=== PATIENT | female | born 1935 | race Caucasian/White ===

== ENCOUNTER → 2017-05-15 13:39 | Outpatient (CLI) | payer MEDICARE, OTHER, SELFPAY ==
[2017-05-15 15:26] LABS: Protein, Urine (Random) < 6.0 mg/dL (<11.9); Protein:Creat Ratio 146 mg/g CRE (0-200)
[2017-05-15 15:28] LABS: Anion Gap 7 (5-15); BUN 15 mg/dL (7-18); BUN/Creat Ratio 13.3 RATIO (10-20); Calcium,Total 9.3 mg/dL (8.5-10.1); Chloride 102 mmol/L (98-107); Creatinine, Serum 1.13 mg/dL (0.55-1.02); EST Glomerular Filtration Rate 49 mL/min (>60); Est Glom Filt Rate - Afr Amer 60 mL/min (>60); Glucose 85 mg/dL (74-106); Potassium 3.9 mmol/L (3.5-5.1); Sodium Level 139 mmol/L (136-145)
[2017-05-16 10:39] LABS: PTHIN 148.8 pg/mL (18.4-80.1)
== END ==
PROVIDERS: Family Provider Internal Medicine; PCP Internal Medicine; Visit Provider Internal Medicine Nephrology
DX: N18.3 Chronic kidney disease, stage 3 (moderate) (principal)
CPT/HCPCS: 36415; 80048; 82570; 83970; 84156

== ENCOUNTER → 2018-03-28 10:21 | Outpatient (CLI) | payer MEDICARE, OTHER, SELFPAY ==
[2018-03-28 11:25] LABS: Absolute Lymphocyte Count 1.38 X10^3/ul (0.83-4.51); Absolute Neutrophil Count 4.6 X10^3/uL (2.0-7.7); Basophil# 0.03 X10^3/uL; Basophil% 0.4 % (0-1); Eosinophil# 0.13 X10^3/uL; Eosinophils% 1.9 % (0-5); Hematocrit 36.8 % (37-47); Lymphocyte # 1.38 X10^3/ul (4.0); Lymphocyte % 20.1 % (19-41); Mean Corp Hgb Conc 32.6 g/gl (32-36); Mean Corpuscular Hgb 31.9 pg (27.0-32.0); Mean Corpuscular Volume 97.9 fL (81-99); Mean Platelet Vol. 9.9 fl (6.2-12.0); Monocyte% 10.2 % (0-10); Neutrophil # 4.57 X10^3/uL (2.7-7.7); Neutrophil % 66.8 % (47-70); POSITIVE COUNT NO; POSITIVE DIFFERENTIAL NO; POSITIVE MORPHOLOGY NO; Platelet Count 211 K/mm3 (150-450); RBC Distribution Width CV 15.9 % (11.6-14.6); RBC Distribution Width SD 54.5 fl (35.1-43.9); Red Blood Count 3.76 M/mm3 (4.2-5.4); White Blood Count 6.9 K/mm3 (4.4-11.0)
[2018-03-28 11:39] LABS: Microalbumin,Random Urine 13.4 mg/L (NO RANGE EST.); Microalbumin:Creatinine Ratio 53.2 mg/g CRE (<30 mg/g CRE)
[2018-03-28 11:42] LABS: Albumin, Serum 3.3 g/dL (3.2-5.0); BUN 18 mg/dL (7-18); BUN/Creat Ratio 14.3 RATIO (10-20); Calcium,Total 9.2 mg/dL (8.5-10.1); Chloride 101 mmol/L (98-107); Creatinine, Serum 1.26 mg/dL (0.55-1.02); EST Glomerular Filtration Rate 43 mL/min (>60); Est Glom Filt Rate - Afr Amer 52 mL/min (>60); Glucose 105 mg/dL (74-106); Phosphorus 3.1 mg/dL (2.5-4.9); Potassium 3.9 mmol/L (3.5-5.1); Sodium Level 137 mmol/L (136-145)
[2018-03-28 11:51] LABS: Vitamin D,25 Hydroxy 36.1 ng/mL (29.95-100.01)
[2018-03-28 12:22] LABS: PTHIN 67.3 pg/mL (18.4-80.1)
== END ==
PROVIDERS: Family Provider Internal Medicine; PCP Internal Medicine; Referring Provider Internal Medicine Nephrology; Visit Provider Internal Medicine Nephrology
DX: N18.3 Chronic kidney disease, stage 3 (moderate) (principal); D63.1 Anemia in chronic kidney disease; N25.81 Secondary hyperparathyroidism of renal origin; R80.9 Proteinuria, unspecified
CPT/HCPCS: 36415; 80069; 82043; 82306; 82570; 83970; 85025

== ENCOUNTER → 2019-08-24 11:03 | Outpatient (CLI) | payer MEDICARE, OTHER, SELFPAY ==
[2019-08-24 11:34] LABS: Hematocrit 34.9 % (37-47); Mean Corp Hgb Conc 31.5 g/dL (32-36); Mean Corpuscular Hgb 31.2 pg (27.0-32.0); Mean Corpuscular Volume 98.9 fL (81-99); Mean Platelet Vol. 10.3 fl (6.2-12.0); Platelet Count 217 K/mm3 (150-450); RBC Distribution Width CV 17.2 % (11.6-14.6); RBC Distribution Width SD 61.7 fl (35.1-43.9); Red Blood Count 3.53 M/mm3 (4.2-5.4); White Blood Count 8.7 K/mm3 (4.4-11.0)
[2019-08-24 12:02] LABS: Albumin, Serum 3.4 g/dL (3.2-5.0); BUN 41 mg/dL (7-18); BUN/Creat Ratio 21.6 RATIO (10-20); Calcium,Total 10.7 mg/dL (8.5-10.1); Chloride 105 mmol/L (98-107); EST Glomerular Filtration Rate 27 mL/min (>60); Est Glom Filt Rate - Afr Amer 33 mL/min (>60); Glucose 133 mg/dL (74-106); Phosphorus 2.7 mg/dL (2.5-4.9); Potassium 4.4 mmol/L (3.5-5.1); Sodium Level 141 mmol/L (136-145)
[2019-08-24 12:04] LABS: Vitamin D,25 Hydroxy 44.6 ng/mL
[2019-08-24 12:52] LABS: PTHIN 56.4 pg/mL (18.4-80.1)
[2019-08-24 13:02] LABS: Protein, Urine (Random) < 6.0 mg/dL (<11.9); Protein:Creat Ratio 94 mg/g CRE (0-200)
== END ==
PROVIDERS: PCP Internal Medicine; Visit Provider Internal Medicine Nephrology
DX: N18.3 Chronic kidney disease, stage 3 (moderate) (principal); D63.1 Anemia in chronic kidney disease
CPT/HCPCS: 36415; 80069; 82306; 82570; 83970; 84156; 85027

== ENCOUNTER 2019-10-13 14:47 | Inpatient (IN) | payer MEDICARE, OTHER, SELFPAY ==
[2019-10-13] VITALS (10 sets, daily range): BP systolic 89–126; BP diastolic 30–53; PULSE 53–68; RESP 12–18; TEMP 36.5–36.7; O2SAT 95–99; BMI 36.3; BMI 34.6
--- NOTE | 2019-10-13 15:38 | CT_ITS ---
STUDY: CT BRAIN WITHOUT CONTRAST REASON FOR EXAM: Female, 84 years old. Confusion. RADIATION DOSAGE (If Supplied By Facility): CTDIvol = ( 44.99 ) mGy, DLP = ( 796.11 ) mGycm TECHNIQUE: Transaxial CT imaging of the brain was performed without administration of intravenous contrast material. Individualized dose optimization techniques were used for this CT. COMPARISON: MRI dated 04/14/2015 FINDINGS: There is no acute bleed or infarct. There are stable chronic ischemic and atrophic changes. The ventricles are normal in configuration. There is no hydrocephalus. The visualized paranasal sinuses are clear. The mastoid air cells are well aerated. There is no skull fracture. CT/Brain/Head without Contrast IMPRESSION: Stable chronic ischemic and atrophic changes. No acute intracranial abnormality. Electronically Signed: Yannick Payne, at 16:40 EDT Tel , Service support ,
--- NOTE | 2019-10-13 15:39 | EKG12_ITS ---
Test Reason : FATIGUE Blood Pressure : / mmHG Vent. Rate : 054 BPM Atrial Rate : 054 BPM P-R Int : 222 ms QRS Dur : 088 ms QT Int : 454 ms P-R-T Axes : 041 -05 051 degrees QTc Int : 430 ms Sinus bradycardia with 1st degree A-V block Low voltage QRS Borderline ECG Confirmed by MIKE SPARROW ([id number]), desk editor ANNABEL ADEN ([id number]) on 10/18/2019 11:57:41 AM Referred By: Confirmed By:MIKE SPARROW
--- NOTE | 2019-10-13 15:55 | ED.VIS.GEN ---
History of Present Illness Chief Complaint: Fatigue Informant: Patient, Family Onset: Days - 4 to 5 days per daughter. Context: - - Known Timing: - - Possibly cutaneous and waxes and wanes Quality: Confusion, visual hallucination, no appetite, weight loss Location: Residence Current Severity: Mild Maximum Severity: Moderate Worsened by: Uncertain Relieved by: Nothing Associated Symptoms: Please read HPI and review of systems Narrative: Patient is a 4-year-old woman who lives alone. She has not been her normal self for 4 to 5 days. Is been significantly different than normal according to daughter. Daughter states she has trouble finding words and her speech has been slurred. This may have started several days ago. Patient is forgetful. Patient is not oriented. Patient had a urine analysis performed on Friday which was unremarkable and culture is negative. Test was performed at the [facility]. Patient denies headache. She denies double vision, change in vision or blurred vision. She denies neck pain. She denies shortness of breath at rest. She is not able to walk across the room without having significant shortness of breath. This is new. She denies orthopnea PND. She denies nausea or vomiting. She states she had diarrhea. The incident the patient referenced occurred a while ago according the daughter. She states she had decreased urine output. She has no urinary symptoms. She does have history of heart murmur and 70% stenosis of 1 of her carotid arteries. She is on no anticoagulant. There is no history of fall. Prior similar symptoms: No Recent Illness/Hospitalization: No - Past Medical History (1) History of hypertension Status: Acute (2) History of cardiac murmur Status: Acute (3) History of carotid stenosis Status: Acute Past Medical History - Allergies and Home Meds Allergies/Adverse Reactions: Allergies GREG Inhibitors Adverse Reaction (Verified 10/13/19 14:51) Unknown carvedilol [From Coreg] Adverse Reaction (Verified 10/13/19 14:51) Unknown nifedipine [From Procardia] Adverse Reaction (Verified 10/13/19 14:51) Unknown simvastatin [From Zocor] Adverse Reaction (Verified 10/13/19 14:51) Unknown spironolactone Adverse Reaction (Verified 10/13/19 14:51) Unknown Primary Care Physician: Davey Duarte MD [Primary Care Provider] - Prior records reviewed: Yes Surgical History: noncontributory Lives: Alone Smoking Status: Never smoker Alcohol: None Drugs: None Review of Systems General: Reports: Malaise, Weight loss. Denies: Chills, Fever, Subjective, Sweats Eyes: Denies: Visual changes - bilaterally, Blurred Vision - bilaterally, Diplopia ENT: Reports: - - No change in taste or smell. Denies: Bilateral ear pain, Rhinorrhea, Sore throat Cardiovascular: Denies: Chest pain, Palpitations Respiratory: Reports: Dyspnea on exertion. Denies: Dyspnea, Cough, Sputum, Orthopnea, Paroxysmal nocturnal dyspnea Gastrointestinal: Denies: Abdominal pain, Nausea, Vomiting, Diarrhea Genitourinary: Denies: Dysuria, Hematuria, Frequency Musculoskeletal: Reports: Swelling. Denies: Myalgias, Arthralgias, Neck pain, Back pain, Extremity Pain Skin: Denies: Rash, Wounds Neurological: Reports: Weakness, Parasthesia - Patient has history of neuropathy.. Denies: Headache, Numbness Psych: Denies: Depression Hematologic: Denies: Easy bruising, Easy bleeding Allergy: Denies: Uticaria Physical Exam Vital Signs/Narrative: Vital Signs Temp Pulse Resp BP Pulse Ox 10/13/19 15:22 55 L 12 116/52 L 99 10/13/19 14:49 97.7 F L 58 L 18 89/30 L 97 Inital Vital Signs reviewed: Yes General: Well nourished, Well developed, Obese, No Acute Distress Head: Normocephalic, Atraumatic Eyes: Perrl, EOMI. Negative for: Pale conjunctiva, Scleral icterus ENT: Moist mucous membranes, No rhinorrhea, TM's clear Neck: Supple, Nontender, No lymphadenopathy, No JVD Cardiovascular: Regular rate, Regular rhythm, Normal S1, Normal S2, Murmur - There is a grade 2/6 systolic murmur heard throughout the precordium with radiation into the right anterior neck. Respiratory: No distress, CTA bilaterally, Chest nontender Abdomen: Soft, Nontender, Nondistended, Normal bowel sounds Back: Nontender, Normal Inspection Extremities: Nontender, No edema Skin: Normal color, No rash Neurological: Alert, Cranial nerves II-XII grossly intact, Normal Strength, Normal Sensation, Normal DTR. Negative for: Oriented x3 Psychological: Depressed Diagnostic/Tx/Re-eval Impressions Brain CT 10/13/19 15:38 IMPRESSION: Stable chronic ischemic and atrophic changes. No acute intracranial abnormality. Electronically Signed: Yannick Payne, at 16:40 EDT Tel , Service support , Chest X-Ray 10/13/19 16:24 IMPRESSION: No acute thoracic pathology. Electronically Signed: Yannick Payne, at 16:45 EDT Tel , Service support , 10/13/19 15:38 Brain/Head without Contrast [CT] Stat 10/13/19 16:24 Chest PA and Lateral [RAD] Stat Laboratory Results 10/13/19 10/13/19 16:00 16:00 WBC 6.6 RBC 3.60 L Hgb 11.3 L Hct 34.6 L MCV 96.1 MCH 31.4 MCHC 32.7 RDW Std Deviation 57.1 H RDW Coeff of Yolanda 16.4 H Plt Count 223 MPV 10.9 Immature Gran % (Auto) 0.200 Neut % (Auto) 56.6 Lymph % (Auto) 26.9 Bent % (Auto) 12.0 H Eos % (Auto) 3.5 Baso % (Auto) 0.8 Absolute Neuts (auto) 3.7 Absolute Lymphs (auto) 1.77 Nucleated RBC % 0 Sodium 137 Potassium 6.0 H* Chloride 107 Carbon Dioxide 24.0 Anion Gap 6 BUN 82 H Creatinine 5.75 H Estim Creat Clear Calc 6.13 Est GFR (MDRD) Af Amer 9 L Est GFR (MDRD) Non-Af 8 L BUN/Creatinine Ratio 14.3 Glucose 113 H Calcium 9.3 Total Bilirubin 1.00 AST 7 L ALT 15 Alkaline Phosphatase 75 Total Protein 6.1 L Albumin 3.4 Globulin 2.7 Albumin/Globulin Ratio 1.3 Creatinine on August 23 was 1.9. Creatinine today is 5.75. Potassium is elevated at 6.0. Lab commented there is no hemolysis. Her EKG reveals no changes concerning for hyperkalemia. Therefore will not treat with calcium chloride, insulin D50 or albuterol. Sees a fluid bolus of 1 L and 150 an hour after the bolus. - EKG Initial EKG Interpretation: Sinus Bradycardia - 88 ms. QT duration 454 ms with a QTC of 430 ms. [place] is normal. There is decreased voltage.Sinus bradycardia with a first-degree AV block. OR interval is 222 ms. - Medical Decision Making Altered mental status in an elderly woman. This may represent depression with pseudodementia, dementia, urinary tract infection has been ruled out since she had a recent UA and culture that were negative, metabolic cause. CT of the head was obtained as well as appropriate blood work. ED Disposition - Plan for ED Patient: Disposition: [facility] Diagnosis: Acute on chronic renal failure, Hyperkalemia, History of hypertension Referrals: Davey Duarte MD [Primary Care Provider] -
[2019-10-13 16:14] LABS: Absolute Lymphocyte Count 1.77 X10^3/uL (0.83-4.51); Absolute Neutrophil Count 3.7 X10^3/uL (2.0-7.7); Basophil# 0.05 X10^3/uL; Basophil% 0.8 % (0-1); Eosinophil# 0.23 X10^3/uL; Eosinophils% 3.5 % (0-5); Hematocrit 34.6 % (37-47); Hemoglobin 11.3 g/dL (12.0-15.0); Lymphocyte # 1.77 X10^3/ul (4.0); Lymphocyte % 26.9 % (19-41); Mean Corp Hgb Conc 32.7 g/dL (32-36); Mean Corpuscular Hgb 31.4 pg (27.0-32.0); Mean Corpuscular Volume 96.1 fL (81-99); Mean Platelet Vol. 10.9 fl (6.2-12.0); Monocyte# 0.79 X10^3/uL; NRBC Flagged by Analyzer 0 % (0-5); Neutrophil # 3.72 X10^3/uL (2.7-7.7); Neutrophil % 56.6 % (47-70); Platelet Count 223 K/mm3 (150-450); RBC Distribution Width CV 16.4 % (11.6-14.6); RBC Distribution Width SD 57.1 fl (35.1-43.9); White Blood Count 6.6 K/mm3 (4.4-11.0)
--- NOTE | 2019-10-13 16:24 | RAD_ITS ---
STUDY: X-RAY CHEST REASON FOR EXAM: Female, 84 years old. Dyspnea TECHNIQUE: Frontal and lateral views of the chest COMPARISON: None. FINDINGS: The lungs are clear. There are no pleural effusions. There is no pneumothorax. The heart is normal in size. The visualized osseous structures are within normal limits. RAD/Chest PA and Lateral IMPRESSION: No acute thoracic pathology. Electronically Signed: Yannick Payne, at 16:45 EDT Tel , Service support ,
[2019-10-13 17:11] LABS: ALB/GLOB Ratio 1.3 RATIO (0.9-2.4); AST(SGOT) 7 U/L (15-37); Alanine Aminotransfer ALT/SGPT 15 U/L (13-56); Albumin, Serum 3.4 g/dL (3.2-5.0); Alkaline Phosphatase 75 U/L (45-117); Anion Gap 6 (5-15); BUN 82 mg/dL (7-18); BUN/Creat Ratio 14.3 RATIO (10-20); Calcium,Total 9.3 mg/dL (8.5-10.1); Chloride 107 mmol/L (98-107); Creatinine, Serum 5.75 mg/dL (0.55-1.02); EST Glomerular Filtration Rate 8 mL/min (>60); Est Glom Filt Rate - Afr Amer 9 mL/min (>60); Estimated Creatinine Clearance 6.13 ml/min; Globulin 2.7 g/dL (2.2-4.2); Glucose 113 mg/dL (74-106); Protein, Total 6.1 g/dL (6.4-8.2); Sodium Level 137 mmol/L (136-145)
[2019-10-13] MEDS: 0.9% Normal Saline 1,000 ML 1000 ML IV (17:52)
--- NOTE | 2019-10-13 17:56 | HP.PCM_ITS ---
<Katie Rogers - Last Filed: 10/13/19 18:42> Problem List (1) History of hypertension Status: Chronic (2) History of cardiac murmur Status: Chronic (3) History of carotid stenosis Status: Chronic (4) Acute on chronic renal failure Status: Acute (5) Hyperkalemia Status: Acute History of Present Illness Date of Admission: 10/13/19 Chief Complaint: Weakness. The patient is a 84 year old F who presents emergency room due to weakness. Patient reports generalized weakness over the last few weeks which has increased over the past several days. She reports poor appetite and oral intake. Complains of urinary frequency however states her urine was tested by primary c are provider yesterday and did not show any signs of infection. She denies dysuria. Denies fever, chills. Denies cough. Reports shortness of breath with exertion which she attributes to feeling generally fatigued. She denies other associated symptoms. She has a past medical history of chronic kidney disease stage III, hypertension, hyperlipidemia, CAD, GERD, cardiac murmur. Past Medical History Past Medical History (Chronic Problems): Chronic Problems History of hypertension (Chronic) History of cardiac murmur (Chronic) History of carotid stenosis (Chronic) Allergies GREG Inhibitors Adverse Reaction (Verified 10/13/19 14:51) Unknown carvedilol [From Coreg] Adverse Reaction (Verified 10/13/19 14:51) Unknown nifedipine [From Procardia] Adverse Reaction (Verified 10/13/19 14:51) Unknown simvastatin [From Zocor] Adverse Reaction (Verified 10/13/19 14:51) Unknown spironolactone Adverse Reaction (Verified 10/13/19 14:51) Unknown Home Medications: Ambulatory Orders Medication Instructions Recorded Allopurinol [Zyloprim] 200 mg PO DAILY 10/24/14 Amlodipine [Norvasc] 5 mg PO DAILY 10/24/14 Aspirin [Aspirin, Baby] 81 mg PO DAILY@0800 10/24/14 Atorvastatin Calcium [Lipitor] 40 mg PO QHS 10/24/14 Cyanocobalamin [Vitamin B12] 1,000 mcg IM Q30D 10/24/14 Gabapentin [Neurontin] 600 mg PO TIDCM 10/24/14 Hydrocodone Bitart/Apap 5-325 1 tablet PO Q6H PRN PRN 10/24/14 [[place] 5MG-325MG] Irbesartan [Avapro] 300 mg PO DAILY 10/24/14 Isosorbide Mononitrate [Imdur] 60 mg PO DAILY 10/24/14 Zolpidem Tartrate [Ambien 5 mg PO QHS PRN PRN 10/24/14 (Generic)] Amoxicillin [Amoxil] 2,000 mg PO X1 PRN 10/13/19 Duloxetine Hcl [Cymbalta] 20 mg PO DAILY 10/13/19 Furosemide 40 mg PO DAILY 10/13/19 Hydrocortisone 2.5% Crm [Hytone] 1 applic TOPICAL BID PRN PRN 10/13/19 Metoprolol Tartrate 50 mg PO BID 10/13/19 Nitroglycerin [Nitrostat] 0.4 mg SL Q5M PRN 10/13/19 Omeprazole 40 mg PO DAILY 10/13/19 Potassium Chloride 10 meq PO QODAY 10/13/19 Pyridoxine HCl (Vitamin B6) 100 mg PO DAILY 10/13/19 [Vitamin B-6] Surgical History: - - Oopherectomy, breast biopsy, Psychiatric History: No pertinent psych hx 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 Paternal History Items: - - Denies known paternal medical history including cardiac history. Review of Systems Constitutional: Reports: Malaise, Weakness, Fatigue. Denies: Chills, Fever, Weight Change HEENT: Denies: Head Aches, Sinus Congestion, Sinus Drainage Cardiovascular: Denies: Chest Pain, Palpitations Respiratory: Denies: Cough, Shortness of breath at rest, Sputum production Gastrointestinal: Denies: Abdominal Pain, Nausea, Vomiting Genitourinary: Reports: Frequency. Denies: Dysuria Musculoskeletal: Denies: Joint Pain, Joint Tenderness Skin: Denies: Rash, Wounds Neurological: Denies: Numbness, Tingling, Focal weakness Psychiatric: Denies: Anxiety, Depression, Homicidal Ideations, Suicidal Ideations Hematologic/ Lymphatic: Denies: Easy Bruising, Easy Bleeding VTE Information - Inpt Only VTE Present on Admission: No VTE Mechan Device Prophylaxis: None VTE Pharm Prophylaxis ordered?: Yes Patient Problems: Active and Suspected Problems Acute on chronic renal failure (Acute) Hyperkalemia (Acute) - Physical Exam Vitals/I&O's: Vital Signs Temp Pulse Resp BP Pulse Ox 97.8 F 57 L 18 121/50 H 97 10/13/19 17:52 10/13/19 17:52 10/13/19 17:52 10/13/19 17:52 10/13/19 17:52 Weight: 205 lb Body Mass Index (BMI) 36.3 General: Alert, Oriented x3, Cooperative HEENT: Atraumatic, PERRLA, EOMI, Normocephalic Oral: Dry Mucosa Neck: Supple, No JVD, Negative Carotid Bruits Lungs: Clear to auscultation, Normal air movement Cardiovascular: Regular rate, No murmurs Abdomen: Bowel Sounds Present, Soft, Non Tender Extremities: No clubbing, No cyanosis, No edema, Capillary Refill Less than 3 Seconds Skin: No rashes, No breakdown Musculoskeletal: No Tenderness to Palpation of Joints or Extremities Neurological: Cranial nerves II-XII grossly intact, Neuro grossly intact Psych/Mental Status: Normal Affect, Appropriate Laboratory Results 10/13/19 16:00: WBC 6.6, RBC 3.60 L, Hgb 11.3 L, Hct 34.6 L, MCV 96.1, MCH 31.4, MCHC 32.7, RDW Std Deviation 57.1 H, RDW Coeff of Yolanda 16.4 H, Plt Count 223, MPV 10.9, Immature Gran % (Auto) 0.200, Neut % (Auto) 56.6, Lymph % (Auto) 26.9, Coles % (Auto) 12.0 H, Eos % (Auto) 3.5, Baso % (Auto) 0.8, Absolute Neuts (auto) 3.7, Absolute Lymphs (auto) 1.77, Nucleated RBC % 0 10/13/19 16:00: Sodium 137, Potassium 6.0 H*, Chloride 107, Carbon Dioxide 24.0, Anion Gap 6, BUN 82 H, Creatinine 5.75 H, Estim Creat Clear Calc 6.13, Est GFR (MDRD) Af Amer 9 L, Est GFR (MDRD) Non-Af 8 L, BUN/Creatinine Ratio 14.3, Glucose 113 H, Calcium 9.3, Total Bilirubin 1.00, AST 7 L, ALT 15, Alkaline Phosphatase 75, Total Protein 6.1 L, Albumin 3.4, Globulin 2.7, Albumin/Globulin Ratio 1.3 Current Medications Sodium Chloride () 1,000 mls @ 150 mls/hr IV .Q6H40M KELLY Sodium Chloride () 1,000 mls @ 1,000 mls/hr IV .Q1H ONE Stop: 10/13/19 18:39 Last Admin: 10/13/19 17:52 Dose: 1,000 mls/hr Documented by: Assessment/Plan All Active Problems Acute on chronic renal failure (Acute) Hyperkalemia (Acute) 1. Acute kidney injury with hyperkalemia on chronic kidney disease stage III- patient follows with Dr. Reynaga. She had recent visit in August where her creatinine was above baseline. Meloxicam stopped at that time. IV fluids. Hold nephrotoxic regimen including ARB and Lasix. Trend BMP. If no improvement following hydration, consider renal ultrasound and nephrology consult. Obtain urine sodium and urine creatinine. No EKG changes. 2. Hypertension-stable, continue metoprolol, isosorbide regimen. Hold ARB, lasix. 3. Hyperlipidemia-continue statin. 4. CAD-no history of stent. Continue aspirin, statin, beta-maryam, isosorbide. 5. GERD-continue PPI. 6. MARIANO-continue BiPAP regimen. DVT prophylaxis- heparin sc This patient was seen by MARY Huang under the supervision of Dr. Garcia. <Dewayne Garica F - Last Filed: 10/13/19 19:40> History of Present Illness The patient is a 84 year old F [] Past Medical History Allergies GREG Inhibitors Adverse Reaction (Verified 10/13/19 14:51) Unknown carvedilol [From Coreg] Adverse Reaction (Verified 10/13/19 14:51) Unknown nifedipine [From Procardia] Adverse Reaction (Verified 10/13/19 14:51) Unknown simvastatin [From Zocor] Adverse Reaction (Verified 10/13/19 14:51) Unknown spironolactone Adverse Reaction (Verified 10/13/19 14:51) Unknown - Physical Exam Vitals/I&O's: Vital Signs Temp Pulse Resp BP Pulse Ox 98.0 F 55 L 18 126/45 H 98 10/13/19 19:05 10/13/19 19:05 10/13/19 19:05 10/13/19 19:05 10/13/19 19:05 Oxygen Delivery Method Room Air Weight: 205 lb Body Mass Index (BMI) 36.3 Laboratory Results 10/13/19 16:00: WBC 6.6, RBC 3.60 L, Hgb 11.3 L, Hct 34.6 L, MCV 96.1, MCH 31.4, MCHC 32.7, RDW Std Deviation 57.1 H, RDW Coeff of Yolanda 16.4 H, Plt Count 223, MPV 10.9, Immature Gran % (Auto) 0.200, Neut % (Auto) 56.6, Lymph % (Auto) 26.9, Coles % (Auto) 12.0 H, Eos % (Auto) 3.5, Baso % (Auto) 0.8, Absolute Neuts (auto) 3.7, Absolute Lymphs (auto) 1.77, Nucleated RBC % 0 10/13/19 16:00: Sodium 137, Potassium 6.0 H*, Chloride 107, Carbon Dioxide 24.0, Anion Gap 6, BUN 82 H, Creatinine 5.75 H, Estim Creat Clear Calc 6.13, Est GFR (MDRD) Af Amer 9 L, Est GFR (MDRD) Non-Af 8 L, BUN/Creatinine Ratio 14.3, Glucose 113 H, Calcium 9.3, Total Bilirubin 1.00, AST 7 L, ALT 15, Alkaline Phosphatase 75, Total Protein 6.1 L, Albumin 3.4, Globulin 2.7, Albumin/Globulin Ratio 1.3 Current Medications Sodium Chloride () 1,000 mls @ 150 mls/hr IV .Q6H40M KELLY Sodium Chloride () 1,000 mls @ 100 mls/hr IV .Q10H KELLY Addendum: Dr. Garcia I personally examined the patient and reviewed the chart. I agree with the above. 84-year-old female was brought in from home by her daughter because of lethargy and weakness. She says for the last couple of days she notes that her mother has just been lying around the house with no appetite. She has not been drinking anything and her house is not air conditioned. Normally her mother does not sleep all day but for the last couple days she has been waking up at noon. The daughter also noticed that while she has been taking her medications every day that some days she is missing pills and therefore it is possible that she has been taking some nephrotoxic agents at higher doses than normal. She was seen by her PCP for a UA yesterday which was negative for infection. We will start her on IV fluids and repeat her potassium at midnight to make sure that is coming down. Her EKG does not show any peaked T waves at this time and therefore hopefully with holding her nephrotoxic medications and starting her on IV fluids there will not need to be any direct intervention for her hyperkalemia. At the moment her SHANNON on CKD 3 is likely prerenal in origin therefore we will continue with IV fluids however if there is no significant improvement in her creatinine would recommend consulting nephrology. We will continue her non-nephrotoxic home medications at this time. Inpatient E&M: 67929 Init Hosp L3
--- NOTE | 2019-10-13 17:56 | NURSING ---
PCU [facility] ON CHRONIC RENAL FAILURE, HYPERKALEMIA
[2019-10-13 20:11] LABS: Mucous, Urine 0 SEEN /hpf (<or=2+); Red Blood Cells-Urine 0 SEEN /hpf (0-5); White Blood Cells 0 SEEN /hpf (0-5)
[2019-10-13 20:15] LABS: Color, Urine Yellow (Yellow); Glucose, Dipstick Normal (Normal); Ketone-Dipstick Negative (Negative); Leukocyte Esterase-Dipstick Negative /ul (Negative); Nitrite-Dipstick Negative (Negative); Occult Blood-Urine Negative /ul (Negative); Protein-Dipstick Negative (Negative); Specific Gravity, Urine 1.015 (1.002-1.030); Urine Bilirubin Dipstick Negative (Negative); Urine Clarity Clear (Clear); Urine Urobilinogen Normal (Normal)
[2019-10-13 20:19] LABS: Urine Chloride 88 mmol/L (Not Establ.); Urine Sodium 73 mmol/L (Not Establ.)
[2019-10-13 20:21] LABS: Bacteria RARE /hpf (None Seen); Squamous Epithelial Cells - UA 0-5 SEEN /hpf (5-10)
[2019-10-13] MEDS: 0.9% Normal Saline 1,000 ML 100 ML IV (21:45)
[2019-10-13] MEDS: Metoprolol Tartrate 50 MG Tablet PO (21:46)
[2019-10-13] MEDS: Atorvastatin Calcium 40 MG Tablet PO (21:46)
[2019-10-13] MEDS: Heparin Injection (Vial) 5,000 UNIT/ML VIAL 5000 UNIT SC (21:47)
[2019-10-14] VITALS (12 sets, daily range): BP systolic 109–129; BP diastolic 31–56; PULSE 59–74; RESP 16–18; TEMP 36.7–36.9; O2SAT 97–99
[2019-10-14] MEDS: 0.9% Normal Saline 1,000 ML 100 ML IV ×2 (06:21→17:50)
[2019-10-14] MEDS: Heparin Injection (Vial) 5,000 UNIT/ML VIAL 5000 UNIT SC ×3 (06:22→21:59)
[2019-10-14 06:43] LABS: Absolute Lymphocyte Count 1.36 X10^3/uL (0.83-4.51); Absolute Neutrophil Count 3.3 X10^3/uL (2.0-7.7); Basophil# 0.03 X10^3/uL; Basophil% 0.5 % (0-1); Eosinophil# 0.17 X10^3/uL; Hematocrit 32.3 % (37-47); Hemoglobin 10.7 g/dL (12.0-15.0); Lymphocyte # 1.36 X10^3/ul (4.0); Lymphocyte % 24.2 % (19-41); Mean Corp Hgb Conc 33.1 g/dL (32-36); Mean Corpuscular Hgb 31.5 pg (27.0-32.0); Mean Platelet Vol. 10.7 fl (6.2-12.0); Monocyte# 0.71 X10^3/uL; Monocyte% 12.6 % (0-10); NRBC Flagged by Analyzer 0 % (0-5); Neutrophil # 3.33 X10^3/uL (2.7-7.7); Neutrophil % 59.3 % (47-70); Platelet Count 210 K/mm3 (150-450); RBC Distribution Width CV 16.1 % (11.6-14.6); RBC Distribution Width SD 56.4 fl (35.1-43.9); White Blood Count 5.6 K/mm3 (4.4-11.0)
[2019-10-14 07:02] LABS: Anion Gap 5 (5-15); BUN 74 mg/dL (7-18); BUN/Creat Ratio 16.4 RATIO (10-20); Calcium,Total 8.7 mg/dL (8.5-10.1); Chloride 109 mmol/L (98-107); Creatinine, Serum 4.51 mg/dL (0.55-1.02); EST Glomerular Filtration Rate 10 mL/min (>60); Est Glom Filt Rate - Afr Amer 12 mL/min (>60); Estimated Creatinine Clearance 7.82 ml/min; Glucose 100 mg/dL (74-106); Potassium 4.4 mmol/L (3.5-5.1); Sodium Level 139 mmol/L (136-145)
[2019-10-14] MEDS: DULoxetine Hcl 20 MG Capsule PO (08:36)
[2019-10-14] MEDS: Aspirin 81 MG TAB.CHEW PO (08:36)
[2019-10-14] MEDS: Isosorbide Mononitrate 60 MG Tablet PO (08:37)
[2019-10-14] MEDS: amLODIPine 5 MG Tablet PO (08:37)
[2019-10-14] MEDS: Pantoprazole Sodium 40 MG Tablet PO (08:37)
[2019-10-14] MEDS: Allopurinol 100 MG Tablet 200 MG PO (08:37)
--- NOTE | 2019-10-14 12:32 | US_ITS ---
STUDY: RENAL ULTRASOUND - COMPLETE REASON FOR EXAM: Female, 84 years old. SHANNON , HYPERTENSION TECHNIQUE: Ultrasound evaluation of the kidneys was performed with real-time and static dyer-scale imaging. COMPARISON: None. FINDINGS: RIGHT KIDNEY: Normal location of the right kidney, which is normal in size. The right kidney measures 10.6 x 6.2 x 5.5 cm. There is a normal cortex of the right kidney. The renal cortex measures 1.0 cm. There is no right renal mass or cyst. There are no right renal calculi. There is no right hydronephrosis. DISTAL RIGHT URETER: There is non-visualization of the distal right ureter. There is no demonstrated right ureterovesical junction calculus. There is a visualized right ureteral jet. LEFT KIDNEY: Normal location of the left kidney, which is normal in size. The left kidney measures 9.7 x 5.2 x 5.0 cm. There is a normal cortex of the left kidney. The renal cortex measures 1.3 cm. There is no left renal mass. Two simple cyst are present in the mid and lower pole of the left kidney measuring 9 mm and 1.4 cm requiring no follow-up imaging. There are no left renal calculi. There is no left hydronephrosis. DISTAL LEFT URETER: There is non-visualization of the distal left ureter. There is no demonstrated left ureterovesical junction calculus. There is a visualized left ureteral jet. BLADDER: Collapsed around a quinn catheter and balloon and not evaluated. US/Kidney and Bladder IMPRESSION: Unremarkable ultrasound of the kidneys Electronically Signed: Brendan Hyde MD at 22:25 EDT , Service support ,
--- NOTE | 2019-10-14 12:33 | CON.PCM_ITS ---
Consultation - Renal 10/14/19 PCP/ Referring MD: Requesting physician: [] Primary care physician: Dr. Davey Duarte MD - History of Present Illness History of Present Illness: The patient is a 84 year old F WHO was brought by daughter to ER for weakness. Patient reports generalized weakness over the last few weeks which has increased over the past several days. She reports poor appetite and oral intake no n/v/d/abd pain/dysphagia.She denies dysuria,hematuria,fever, chills.States felt sleepy too and with no energy.no LE edema sob PND orthopnea Had some URBINA.no other c/o. bp on admission was 89/30 Scr 5.75 today 4.5 no other c/o Sees dr. Reynaga for CKD 3 - Allergies Allergies: Allergies GREG Inhibitors Adverse Reaction (Verified 10/13/19 14:51) Unknown carvedilol [From Coreg] Adverse Reaction (Verified 10/13/19 14:51) Unknown nifedipine [From Procardia] Adverse Reaction (Verified 10/13/19 14:51) Unknown simvastatin [From Zocor] Adverse Reaction (Verified 10/13/19 14:51) Unknown spironolactone Adverse Reaction (Verified 10/13/19 14:51) Unknown - Current Medications Current Medications: Current Medications Acetaminophen (Tylenol) 650 mg PO Q6H PRN PRN PRN Reason: Pain Score 1-10/Temp > 100.7 F Hydrocodone Bitart/Acetaminophen ([place] 5mg-325mg) 1 tablet PO Q6H PRN PRN PRN Reason: PAIN 1-10/10 Allopurinol (Zyloprim) 200 mg PO DAILY [facility] Last Admin: 10/14/19 08:37 Dose: 200 mg Documented by: Amlodipine Besylate (Norvasc) 5 mg PO DAILY [facility] Last Admin: 10/14/19 08:37 Dose: 5 mg Documented by: Aspirin (Aspirin, Baby) 81 mg PO DAILY@0800 [facility] Last Admin: 10/14/19 08:36 Dose: 81 mg Documented by: Atorvastatin Calcium (Lipitor) 40 mg PO QHS [facility] Last Admin: 10/13/19 21:46 Dose: 40 mg Documented by: Duloxetine HCl (Cymbalta) 20 mg PO DAILY [facility] Last Admin: 10/14/19 08:36 Dose: 20 mg Documented by: Heparin Sodium (Porcine) (Heparin Na) 5,000 unit SC Q8 [facility] Last Admin: 10/14/19 06:22 Dose: 5,000 unit Documented by: Sodium Chloride () 1,000 mls @ 100 mls/hr IV .Q10H [facility] Last Admin: 10/14/19 06:21 Dose: 100 mls/hr Documented by: Isosorbide Mononitrate (Imdur) 60 mg PO DAILY [facility] Last Admin: 10/14/19 08:37 Dose: 60 mg Documented by: Melatonin (Melatonin) 3 mg PO QHS PRN PRN PRN Reason: INSOMNIA Metoprolol Tartrate (Lopressor (Beta Sergio)) 50 mg PO BID [facility] Last Admin: 10/14/19 11:41 Dose: Not Given Documented by: Nutritional Formula (Lactose Free) (Ensure Enlive) 120 ml PO 4X/DAY [facility] Last Admin: 10/14/19 08:31 Dose: Not Given Documented by: Ondansetron HCl (Zofran) 4 mg IV Q8H PRN PRN PRN Reason: NAUSEA/VOMITING Pantoprazole Sodium (Protonix) 40 mg PO DAILY [facility] Last Admin: 10/14/19 08:37 Dose: 40 mg Documented by: Sodium Chloride () 10 - 40 ml IV UD PRN PRN Reason: SALINE FLUSH - Past Medical History Past Medical History (Chronic Problems): Chronic Problems History of hypertension (Chronic) History of cardiac murmur (Chronic) History of carotid stenosis (Chronic) - Past Surgical History Surgical History: - - Oopherectomy, breast biopsy, - Social History Smoking Status: Never smoker Alcohol: None Drugs: None - Family History Maternal History Items: - - Denies known maternal medical history including cardiac history. Paternal History Items: - - Denies known paternal medical history including cardiac history. Review of Systems Eyes: Reports: - - negative unless noted in HPI Patient Problems: Active and Suspected Problems Acute on chronic renal failure (Acute) Hyperkalemia (Acute) - Physical Exam Vitals/I&O's: Vital Signs Temp Pulse Resp BP Pulse Ox 98.3 F 60 18 122/38 H 99 10/14/19 06:26 10/14/19 11:41 10/14/19 06:26 10/14/19 11:41 10/14/19 06:26 Oxygen Delivery Method Room Air Weight: 88.7 kg Body Mass Index (BMI) 34.6 Intake and Output for Last 24 Hours 10/12/19 10/13/19 10/14/19 23:59 23:59 23:59 Intake Total 1480 / 1480 1100 / 1100 Output Total 200 / 200 Balance 1280 / 1280 1100 / 1100 General: Alert, Cooperative HEENT: Atraumatic, EOMI Oral: Moist Mucosa Neck: Supple Lungs: Clear to auscultation, Normal air movement Cardiovascular: Regular rate, Regular Rhythm, Normal S1, Normal S2 Abdomen: Bowel Sounds Present, Soft, Obese Extremities: No clubbing, No edema Laboratory Results 10/13/19 16:00: WBC 6.6, RBC 3.60 L, Hgb 11.3 L, Hct 34.6 L, MCV 96.1, MCH 31.4, MCHC 32.7, RDW Std Deviation 57.1 H, RDW Coeff of Yolanda 16.4 H, Plt Count 223, MPV 10.9, Immature Gran % (Auto) 0.200, Neut % (Auto) 56.6, Lymph % (Auto) 26.9, [place] % (Auto) 12.0 H, Eos % (Auto) 3.5, Baso % (Auto) 0.8, Absolute Neuts (auto) 3.7, Absolute Lymphs (auto) 1.77, Nucleated RBC % 0 10/13/19 16:00: Sodium 137, Potassium 6.0 H*, Chloride 107, Carbon Dioxide 24.0, Anion Gap 6, BUN 82 H, Creatinine 5.75 H, Estim Creat Clear Calc 6.13, Est GFR (MDRD) Af Amer 9 L, Est GFR (MDRD) Non-Af 8 L, BUN/Creatinine Ratio 14.3, Glucose 113 H, Calcium 9.3, Total Bilirubin 1.00, AST 7 L, ALT 15, Alkaline Phosphatase 75, Total Protein 6.1 L, Albumin 3.4, Globulin 2.7, Albumin/Globulin Ratio 1.3 10/13/19 19:50: Urine Color Yellow, Urine Clarity Clear, Urine pH 5.0, Ur Specific [place] 1.015, Urine Protein Negative, Urine Glucose (UA) Normal, Urine Ketones Negative, Urine Occult Blood Negative, Urine Nitrite Negative, Urine Bilirubin Negative, Urine Urobilinogen Normal, Ur Leukocyte Esterase Negative, Urine RBC 0 SEEN, Urine WBC 0 SEEN, Ur Squamous Epith Cells 0-5 SEEN, Urine Bacteria RARE, Urine Mucus 0 SEEN 10/13/19 19:50: Ur Random Sodium 73, Urine Potassium 39.0, Urine Chloride 88 10/13/19 23:53: Potassium 5.0 10/14/19 06:08: WBC 5.6, RBC 3.40 L, Hgb 10.7 L, Hct 32.3 L, MCV 95.0, MCH 31.5, MCHC 33.1, RDW Std Deviation 56.4 H, RDW Coeff of Yolanda 16.1 H, Plt Count 210, MPV 10.7, Immature Gran % (Auto) 0.400, Neut % (Auto) 59.3, Lymph % (Auto) 24.2, [place] % (Auto) 12.6 H, Eos % (Auto) 3.0, Baso % (Auto) 0.5, Absolute Neuts (auto) 3.3, Absolute Lymphs (auto) 1.36, Nucleated RBC % 0 10/14/19 06:08: Sodium 139, Potassium 4.4, Chloride 109 H, Carbon Dioxide 25.0, Anion Gap 5, BUN 74 H, Creatinine 4.51 H, Estim Creat Clear Calc 7.82, Est GFR (MDRD) Af Amer 12 L, Est GFR (MDRD) Non-Af 10 L, BUN/Creatinine Ratio 16.4, Glucose 100, Calcium 8.7 Current Medications Acetaminophen (Tylenol) 650 mg PO Q6H PRN PRN PRN Reason: Pain Score 1-10/Temp > 100.7 F Hydrocodone Bitart/Acetaminophen ([place] 5mg-325mg) 1 tablet PO Q6H PRN PRN PRN Reason: PAIN 1-10/10 Allopurinol (Zyloprim) 200 mg PO DAILY [facility] Last Admin: 10/14/19 08:37 Dose: 200 mg Documented by: Amlodipine Besylate (Norvasc) 5 mg PO DAILY [facility] Last Admin: 10/14/19 08:37 Dose: 5 mg Documented by: Aspirin (Aspirin, Baby) 81 mg PO DAILY@0800 [facility] Last Admin: 10/14/19 08:36 Dose: 81 mg Documented by: Atorvastatin Calcium (Lipitor) 40 mg PO QHS [facility] Last Admin: 10/13/19 21:46 Dose: 40 mg Documented by: Duloxetine HCl (Cymbalta) 20 mg PO DAILY [facility] Last Admin: 10/14/19 08:36 Dose: 20 mg Documented by: Heparin Sodium (Porcine) (Heparin Na) 5,000 unit SC Q8 [facility] Last Admin: 10/14/19 06:22 Dose: 5,000 unit Documented by: Sodium Chloride () 1,000 mls @ 100 mls/hr IV .Q10H [facility] Last Admin: 10/14/19 06:21 Dose: 100 mls/hr Documented by: Isosorbide Mononitrate (Imdur) 60 mg PO DAILY [facility] Last Admin: 10/14/19 08:37 Dose: 60 mg Documented by: Melatonin (Melatonin) 3 mg PO QHS PRN PRN PRN Reason: INSOMNIA Metoprolol Tartrate (Lopressor (Beta Sergio)) 50 mg PO BID [facility] Last Admin: 10/14/19 11:41 Dose: Not Given Documented by: Nutritional Formula (Lactose Free) (Ensure Enlive) 120 ml PO 4X/DAY [facility] Last Admin: 10/14/19 08:31 Dose: Not Given Documented by: Ondansetron HCl (Zofran) 4 mg IV Q8H PRN PRN PRN Reason: NAUSEA/VOMITING Pantoprazole Sodium (Protonix) 40 mg PO DAILY [facility] Last Admin: 10/14/19 08:37 Dose: 40 mg Documented by: Sodium Chloride () 10 - 40 ml IV UD PRN PRN Reason: SALINE FLUSH Assessment/Plan All Active Problems Acute on chronic renal failure (Acute) Hyperkalemia (Acute) SHANNON prerenal/ATN with hypotension/ACEI/diuretic/fluid depletion/decreased po intake Hyperkalemia resolved CKD 3 baseline 1.9 in August prior to that 1.23 Urinary retention s/p Su urology to evaluate hold ACEI/diuretic/K supplement continue ivf check renal US bp better UA reviewed Scr 4.5 improving avoid nephrotoxins further w/u per clinical course Thanks for consult d/w patient and RN Will F/u
--- NOTE | 2019-10-14 13:33 | CASEMGMT ---
Assessment- SW completed assessment with patient at bedside. SW also confirmed addresses and phone numbers for patient and her social contact worker. Living situation- Patient lives alone in a 1 story home with no entry steps. She does her laundry in the basement. PCP: Dr Duarte Specialists: Dr Reynaga-Nephrology, Dr Maldonado-Cardiology, and Dr Palmer-Vascular Surgery Pharmacy: [facility]: rollator, grab bars, shower chair, cane, and hand held shower ADL's/IADL's: Patient is independent with most things except her daughter helps her with groceries and she drives patient. Patient does her own laundry, cooks, cleans, bathes herself, and manages her medications. She only uses her rollator at night. Past SNF/rehab: None Past HH: Yes and she thinks it was [facility] HH LW: Yes and she is aware it is not on file at [facility]. POA: Yes and she is aware it is not on file at [facility]. Her daughter, Kika Joseph is her POA Plan: Patient is very hard of hearing but she was able to answer most of ANGEL's questions. She plans on returning home at discharge. She did give SW permission to call her daughter. SW did speak with patient's daughter, Kika. She was able to give the specialists that patient sees and confirm other information. She said she is fine with patient going home at discharge. She said she may want home health to have a nurse help with medications as lately patient has been having troubles with taking her medications correctly. She thinks patient may clear up once she is discharged. ANGEL told her the RN GRECIA will follow and talk with patient and/or her about home health before d/c. Possible home health at d/c. Corine GRIGSBY MSW
--- NOTE | 2019-10-14 14:15 | PN_ITS ---
<Braden Tyler - Last Filed: 10/14/19 14:15> Patient Problems: Active and Suspected Problems Acute on chronic renal failure (Acute) Hyperkalemia (Acute) Reason for Visit: weakness Subjective: pt with generalized weakness. She has noticed she is not having as much urinary quantity despite that she has to urinate more frequently. She complained of dysuria but attributed it to her hemorrhoids, and her UA was not significant for infection. No fever/chills. Vitals/I&O's: Vital Signs Temp Pulse Resp BP Pulse Ox 98.4 F 68 16 109/37 L 97 10/14/19 12:25 10/14/19 12:25 10/14/19 12:25 10/14/19 12:25 10/14/19 12:25 Oxygen Delivery Method Room Air Weight: 195 lb 8.8 oz Body Mass Index (BMI) 34.6 Intake and Output for Last 24 Hours 10/12/19 10/13/19 10/14/19 23:59 23:59 23:59 Intake Total 1480 / 1480 1100 / 1100 Output Total 200 / 200 Balance 1280 / 1280 1100 / 1100 General: Alert, Oriented x3, Cooperative HEENT: Atraumatic, PERRLA, EOMI, Normocephalic Neck: Supple, No JVD, Negative Carotid Bruits Lungs: Clear to auscultation, Normal air movement Cardiovascular: Regular rate, No murmurs Abdomen: Bowel Sounds Present, Soft, Non Tender Extremities: No edema, Capillary Refill Less than 3 Seconds Skin: No rashes, No breakdown Musculoskeletal: No Tenderness to Palpation of Joints or Extremities Neurological: Cranial nerves II-XII grossly intact Psych/Mental Status: Normal Affect, Appropriate, Alert and oriented to time, place, person, mood and affect Laboratory Results 10/13/19 16:00: WBC 6.6, RBC 3.60 L, Hgb 11.3 L, Hct 34.6 L, MCV 96.1, MCH 31.4, MCHC 32.7, RDW Std Deviation 57.1 H, RDW Coeff of Yolanda 16.4 H, Plt Count 223, MPV 10.9, Immature Gran % (Auto) 0.200, Neut % (Auto) 56.6, Lymph % (Auto) 26.9, [place] % (Auto) 12.0 H, Eos % (Auto) 3.5, Baso % (Auto) 0.8, Absolute Neuts (auto) 3.7, Absolute Lymphs (auto) 1.77, Nucleated RBC % 0 10/13/19 16:00: Sodium 137, Potassium 6.0 H*, Chloride 107, Carbon Dioxide 24.0, Anion Gap 6, BUN 82 H, Creatinine 5.75 H, Estim Creat Clear Calc 6.13, Est GFR (MDRD) Af Amer 9 L, Est GFR (MDRD) Non-Af 8 L, BUN/Creatinine Ratio 14.3, Glucose 113 H, Calcium 9.3, Total Bilirubin 1.00, AST 7 L, ALT 15, Alkaline Phosphatase 75, Total Protein 6.1 L, Albumin 3.4, Globulin 2.7, Albumin/Globulin Ratio 1.3 10/13/19 19:50: Urine Color Yellow, Urine Clarity Clear, Urine pH 5.0, Ur Specific [place] 1.015, Urine Protein Negative, Urine Glucose (UA) Normal, Urine Ketones Negative, Urine Occult Blood Negative, Urine Nitrite Negative, Urine Bilirubin Negative, Urine Urobilinogen Normal, Ur Leukocyte Esterase Negative, Urine RBC 0 SEEN, Urine WBC 0 SEEN, Ur Squamous Epith Cells 0-5 SEEN, Urine Bacteria RARE, Urine Mucus 0 SEEN 10/13/19 19:50: Ur Random Sodium 73, Urine Potassium 39.0, Urine Chloride 88 10/13/19 23:53: Potassium 5.0 10/14/19 06:08: WBC 5.6, RBC 3.40 L, Hgb 10.7 L, Hct 32.3 L, MCV 95.0, MCH 31.5, MCHC 33.1, RDW Std Deviation 56.4 H, RDW Coeff of Yolanda 16.1 H, Plt Count 210, MPV 10.7, Immature Gran % (Auto) 0.400, Neut % (Auto) 59.3, Lymph % (Auto) 24.2, [place] % (Auto) 12.6 H, Eos % (Auto) 3.0, Baso % (Auto) 0.5, Absolute Neuts (auto) 3.3, Absolute Lymphs (auto) 1.36, Nucleated RBC % 0 10/14/19 06:08: Sodium 139, Potassium 4.4, Chloride 109 H, Carbon Dioxide 25.0, Anion Gap 5, BUN 74 H, Creatinine 4.51 H, Estim Creat Clear Calc 7.82, Est GFR (MDRD) Af Amer 12 L, Est GFR (MDRD) Non-Af 10 L, BUN/Creatinine Ratio 16.4, Glucose 100, Calcium 8.7 Current Medications Acetaminophen (Tylenol) 650 mg PO Q6H PRN PRN PRN Reason: Pain Score 1-10/Temp > 100.7 F Hydrocodone Bitart/Acetaminophen ([place] 5mg-325mg) 1 tablet PO Q6H PRN PRN PRN Reason: PAIN 1-10/10 Allopurinol (Zyloprim) 200 mg PO DAILY [facility] Last Admin: 10/14/19 08:37 Dose: 200 mg Documented by: Amlodipine Besylate (Norvasc) 5 mg PO DAILY [facility] Last Admin: 10/14/19 08:37 Dose: 5 mg Documented by: Aspirin (Aspirin, Baby) 81 mg PO DAILY@0800 [facility] Last Admin: 10/14/19 08:36 Dose: 81 mg Documented by: Atorvastatin Calcium (Lipitor) 40 mg PO QHS [facility] Last Admin: 10/13/19 21:46 Dose: 40 mg Documented by: Duloxetine HCl (Cymbalta) 20 mg PO DAILY [facility] Last Admin: 10/14/19 08:36 Dose: 20 mg Documented by: Heparin Sodium (Porcine) (Heparin Na) 5,000 unit SC Q8 [facility] Last Admin: 10/14/19 13:23 Dose: 5,000 unit Documented by: Sodium Chloride () 1,000 mls @ 100 mls/hr IV .Q10H [facility] Last Admin: 10/14/19 06:21 Dose: 100 mls/hr Documented by: Isosorbide Mononitrate (Imdur) 60 mg PO DAILY [facility] Last Admin: 10/14/19 08:37 Dose: 60 mg Documented by: Melatonin (Melatonin) 3 mg PO QHS PRN PRN PRN Reason: INSOMNIA Metoprolol Tartrate (Lopressor (Beta Sergio)) 50 mg PO BID [facility] Last Admin: 10/14/19 11:41 Dose: Not Given Documented by: Nutritional Formula (Lactose Free) (Ensure Enlive) 120 ml PO 4X/DAY [facility] Last Admin: 10/14/19 13:25 Dose: Not Given Documented by: Ondansetron HCl (Zofran) 4 mg IV Q8H PRN PRN PRN Reason: NAUSEA/VOMITING Pantoprazole Sodium (Protonix) 40 mg PO DAILY [facility] Last Admin: 10/14/19 08:37 Dose: 40 mg Documented by: Sodium Chloride () 10 - 40 ml IV UD PRN PRN Reason: SALINE FLUSH STROKE Vital Signs/Narrative: Vital Signs Temp Pulse Resp BP BP Pulse Ox 10/14/19 12:25 98.4 F 68 16 109/37 L 97 10/14/19 11:41 60 122/38 H Medical Necessity - Tobacco Use Smoking Status: Never smoker Assessment/Plan All Active Problems Acute on chronic renal failure (Acute) Hyperkalemia (Acute) 1. SHANNON on CKDIII - nephro following. likely prerenal ATN, hypotension - continue IVFs, lasix, irbesartan held. BP 89/30 at admission. Now 109/37. Hyperkalemia resolved. BUN/Cr improved. Renal US pending. 2. Mild urinary retention on post void - quinn for now. voiding trial prior to dc. 3. HTN - as above , hypotensive at presentation, trend bp and adjust home meds 4. HLD - statin 5. GERD - PPI DVT ppx: heparin DC planning: PTOT for generalized weakness This patient was seen by Braden Tyler PA-C under the supervision of Doctor Radha. <Cam Garcia - Last Filed: 10/14/19 14:39> Vitals/I&O's: Vital Signs Temp Pulse Resp BP Pulse Ox 36.9 C 68 16 109/37 L 97 10/14/19 12:25 10/14/19 12:25 10/14/19 12:25 10/14/19 12:25 10/14/19 12:25 Oxygen Delivery Method Room Air Weight: 88.7 kg Body Mass Index (BMI) 34.6 Intake and Output for Last 24 Hours 10/12/19 10/13/19 10/14/19 23:59 23:59 23:59 Intake Total 1480 / 1480 1100 / 1100 Output Total 200 / 200 Balance 1280 / 1280 1100 / 1100 General: Alert, Cooperative HEENT: Atraumatic, Normocephalic Neck: No Nodes, Thyroid Normal Size and Texture Lungs: Clear to auscultation, Normal air movement, No rhonchi, No wheeze Cardiovascular: Regular rate, Regular Rhythm, Normal S1, Normal S2 Extremities: No edema, No Calf Tenderness Skin: No rashes, No breakdown Psych/Mental Status: Normal Affect, Appropriate Laboratory Results 10/13/19 16:00: WBC 6.6, RBC 3.60 L, Hgb 11.3 L, Hct 34.6 L, MCV 96.1, MCH 31.4, MCHC 32.7, RDW Std Deviation 57.1 H, RDW Coeff of Yolanda 16.4 H, Plt Count 223, MPV 10.9, Immature Gran % (Auto) 0.200, Neut % (Auto) 56.6, Lymph % (Auto) 26.9, [place] % (Auto) 12.0 H, Eos % (Auto) 3.5, Baso % (Auto) 0.8, Absolute Neuts (auto) 3.7, Absolute Lymphs (auto) 1.77, Nucleated RBC % 0 10/13/19 16:00: Sodium 137, Potassium 6.0 H*, Chloride 107, Carbon Dioxide 24.0, Anion Gap 6, BUN 82 H, Creatinine 5.75 H, Estim Creat Clear Calc 6.13, Est GFR (MDRD) Af Amer 9 L, Est GFR (MDRD) Non-Af 8 L, BUN/Creatinine Ratio 14.3, Glucose 113 H, Calcium 9.3, Total Bilirubin 1.00, AST 7 L, ALT 15, Alkaline Phosphatase 75, Total Protein 6.1 L, Albumin 3.4, Globulin 2.7, Albumin/Globulin Ratio 1.3 10/13/19 19:50: Urine Color Yellow, Urine Clarity Clear, Urine pH 5.0, Ur Specific [place] 1.015, Urine Protein Negative, Urine Glucose (UA) Normal, Urine Ketones Negative, Urine Occult Blood Negative, Urine Nitrite Negative, Urine Bilirubin Negative, Urine Urobilinogen Normal, Ur Leukocyte Esterase Negative, Urine RBC 0 SEEN, Urine WBC 0 SEEN, Ur Squamous Epith Cells 0-5 SEEN, Urine Bacteria RARE, Urine Mucus 0 SEEN 10/13/19 19:50: Ur Random Sodium 73, Urine Potassium 39.0, Urine Chloride 88 10/13/19 23:53: Potassium 5.0 10/14/19 06:08: WBC 5.6, RBC 3.40 L, Hgb 10.7 L, Hct 32.3 L, MCV 95.0, MCH 31.5, MCHC 33.1, RDW Std Deviation 56.4 H, RDW Coeff of Yolanda 16.1 H, Plt Count 210, MPV 10.7, Immature Gran % (Auto) 0.400, Neut % (Auto) 59.3, Lymph % (Auto) 24.2, [place] % (Auto) 12.6 H, Eos % (Auto) 3.0, Baso % (Auto) 0.5, Absolute Neuts (auto) 3.3, Absolute Lymphs (auto) 1.36, Nucleated RBC % 0 10/14/19 06:08: Sodium 139, Potassium 4.4, Chloride 109 H, Carbon Dioxide 25.0, Anion Gap 5, BUN 74 H, Creatinine 4.51 H, Estim Creat Clear Calc 7.82, Est GFR (MDRD) Af Amer 12 L, Est GFR (MDRD) Non-Af 10 L, BUN/Creatinine Ratio 16.4, Glucose 100, Calcium 8.7 Current Medications Acetaminophen (Tylenol) 650 mg PO Q6H PRN PRN PRN Reason: Pain Score 1-10/Temp > 100.7 F Hydrocodone Bitart/Acetaminophen ([place] 5mg-325mg) 1 tablet PO Q6H PRN PRN PRN Reason: PAIN 1-10/10 Allopurinol (Zyloprim) 200 mg PO DAILY [facility] Last Admin: 10/14/19 08:37 Dose: 200 mg Documented by: Amlodipine Besylate (Norvasc) 5 mg PO DAILY [facility] Last Admin: 10/14/19 08:37 Dose: 5 mg Documented by: Aspirin (Aspirin, Baby) 81 mg PO DAILY@0800 [facility] Last Admin: 10/14/19 08:36 Dose: 81 mg Documented by: Atorvastatin Calcium (Lipitor) 40 mg PO QHS [facility] Last Admin: 10/13/19 21:46 Dose: 40 mg Documented by: Duloxetine HCl (Cymbalta) 20 mg PO DAILY [facility] Last Admin: 10/14/19 08:36 Dose: 20 mg Documented by: Heparin Sodium (Porcine) (Heparin Na) 5,000 unit SC Q8 [facility] Last Admin: 10/14/19 13:23 Dose: 5,000 unit Documented by: Sodium Chloride () 1,000 mls @ 100 mls/hr IV .Q10H [facility] Last Admin: 10/14/19 06:21 Dose: 100 mls/hr Documented by: Isosorbide Mononitrate (Imdur) 60 mg PO DAILY [facility] Last Admin: 10/14/19 08:37 Dose: 60 mg Documented by: Melatonin (Melatonin) 3 mg PO QHS PRN PRN PRN Reason: INSOMNIA Metoprolol Tartrate (Lopressor (Beta Sergio)) 50 mg PO BID [facility] Last Admin: 10/14/19 11:41 Dose: Not Given Documented by: Nutritional Formula (Lactose Free) (Ensure Enlive) 120 ml PO 4X/DAY [facility] Last Admin: 10/14/19 13:25 Dose: Not Given Documented by: Ondansetron HCl (Zofran) 4 mg IV Q8H PRN PRN PRN Reason: NAUSEA/VOMITING Pantoprazole Sodium (Protonix) 40 mg PO DAILY [facility] Last Admin: 10/14/19 08:37 Dose: 40 mg Documented by: Sodium Chloride () 10 - 40 ml IV UD PRN PRN Reason: SALINE FLUSH STROKE Vital Signs/Narrative: Vital Signs Temp Pulse Resp BP BP Pulse Ox 10/14/19 12:25 36.9 C 68 16 109/37 L 97 10/14/19 11:41 60 122/38 H Assessment/Plan Patient seen and examined independently. Data reviewed. I agree with the above note by the physician agency sales management assistant. 1. Acute kidney injury on chronic kidney disease stage III: Creatinine slightly improved to 4.51 down from 5.75. Baseline creatinine back in August was at 1.9. Continue with IV fluids. Nephrology on consultation. 2. Hyperkalemia: Likely secondary to above. Currently improved. 3. Urinary retention: Quinn catheter. Inpatient E&M: 35362 Subs Hosp L2
[2019-10-14] MEDS: Atorvastatin Calcium 40 MG Tablet PO (21:59)
[2019-10-14] MEDS: MELATONIN 3 MG TABLET PO (21:59)
[2019-10-15 02:59] VITALS: PULSE 70
[2019-10-15 03:50] VITALS: BP 125/51; PULSE 72; RESP 16; TEMP 37.3; O2SAT 95
[2019-10-15] MEDS: 0.9% Normal Saline 1,000 ML 100 ML IV (03:52)
[2019-10-15] MEDS: Heparin Injection (Vial) 5,000 UNIT/ML VIAL 5000 UNIT SC (06:47)
[2019-10-15 07:00] VITALS: PULSE 71
[2019-10-15 08:11] LABS: Absolute Lymphocyte Count 1.43 X10^3/uL (0.83-4.51); Absolute Neutrophil Count 2.3 X10^3/uL (2.0-7.7); Basophil# 0.02 X10^3/uL; Basophil% 0.5 % (0-1); Eosinophil# 0.14 X10^3/uL; Eosinophils% 3.2 % (0-5); Hematocrit 29.5 % (37-47); Hemoglobin 9.6 g/dL (12.0-15.0); Lymphocyte # 1.43 X10^3/ul (4.0); Mean Corp Hgb Conc 32.5 g/dL (32-36); Mean Corpuscular Hgb 31.1 pg (27.0-32.0); Mean Corpuscular Volume 95.5 fL (81-99); Monocyte# 0.46 X10^3/uL; Monocyte% 10.6 % (0-10); NRBC Flagged by Analyzer 0 % (0-5); Neutrophil # 2.27 X10^3/uL (2.7-7.7); Neutrophil % 52.5 % (47-70); Platelet Count 168 K/mm3 (150-450); RBC Distribution Width CV 16.3 % (11.6-14.6); RBC Distribution Width SD 57.2 fl (35.1-43.9); Red Blood Count 3.09 M/mm3 (4.2-5.4); White Blood Count 4.3 K/mm3 (4.4-11.0)
[2019-10-15 08:30] LABS: Anion Gap 3 (5-15); BUN 52 mg/dL (7-18); BUN/Creat Ratio 20.2 RATIO (10-20); Calcium,Total 8.7 mg/dL (8.5-10.1); Chloride 119 mmol/L (98-107); Creatinine, Serum 2.58 mg/dL (0.55-1.02); EST Glomerular Filtration Rate 19 mL/min (>60); Est Glom Filt Rate - Afr Amer 23 mL/min (>60); Estimated Creatinine Clearance 13.67 ml/min; Glucose 82 mg/dL (74-106); Potassium 4.1 mmol/L (3.5-5.1); Sodium Level 146 mmol/L (136-145)
[2019-10-15 09:50] VITALS: BP 123/45; PULSE 69; RESP 16; TEMP 36.9; O2SAT 96
[2019-10-15] MEDS: amLODIPine 5 MG Tablet PO (09:50)
[2019-10-15] MEDS: Metoprolol Tartrate 50 MG Tablet PO (09:50)
[2019-10-15] MEDS: Allopurinol 100 MG Tablet 200 MG PO (09:50)
[2019-10-15] MEDS: Pantoprazole Sodium 40 MG Tablet PO (09:51)
[2019-10-15] MEDS: Aspirin 81 MG TAB.CHEW PO (09:51)
[2019-10-15] MEDS: Isosorbide Mononitrate 60 MG Tablet PO (09:51)
[2019-10-15] MEDS: DULoxetine Hcl 20 MG Capsule PO (09:51)
--- NOTE | 2019-10-15 11:27 | PCM.DC ---
- Discharge Diagnoses Current Active Problems: Current Active and Chronic Problems History of hypertension (Chronic) History of cardiac murmur (Chronic) History of carotid stenosis (Chronic) Acute on chronic renal failure (Acute) Hyperkalemia (Acute) You will use the following diet at home:: Cardiac, Renal (restricted protein/sodium) Your food should be the consistency of: Regular Your liquids should be the consistency of: Regular/Thin Discharge Activity: Return to Normal Activity Allergies/Adverse Reactions: Allergies GREG Inhibitors Adverse Reaction (Verified 10/13/19 14:51) Unknown carvedilol [From Coreg] Adverse Reaction (Verified 10/13/19 14:51) Unknown nifedipine [From Procardia] Adverse Reaction (Verified 10/13/19 14:51) Unknown simvastatin [From Zocor] Adverse Reaction (Verified 10/13/19 14:51) Unknown spironolactone Adverse Reaction (Verified 10/13/19 14:51) Unknown Medications to take at Discharge Allopurinol [Zyloprim] 200 mg PO DAILY 10/24/14 Amlodipine [Norvasc] 5 mg PO DAILY 10/24/14 Aspirin [Aspirin, Baby] 81 mg PO DAILY@0800 10/24/14 Atorvastatin Calcium [Lipitor] 40 mg PO QHS 10/24/14 Cyanocobalamin [Vitamin B12] 1,000 mcg IM Q30D 10/24/14 Hydrocodone Bitart/Apap 5-325 [[place] 5/325] 1 tablet PO Q6H PRN PRN 10/24/14 Isosorbide Mononitrate [Imdur] 60 mg PO DAILY 10/24/14 Zolpidem Tartrate [Ambien] 5 mg PO QHS PRN PRN 10/24/14 Duloxetine Hcl [Cymbalta] 20 mg PO DAILY 10/13/19 Hydrocortisone 2.5% Crm [Hytone] 1 applic TOPICAL BID PRN PRN 10/13/19 Metoprolol Tartrate 50 mg PO BID 10/13/19 Nitroglycerin [Nitrostat] 0.4 mg SL Q5M PRN 10/13/19 Omeprazole 40 mg PO DAILY 10/13/19 Pyridoxine HCl (Vitamin B6) [Vitamin B-6] 100 mg PO DAILY 10/13/19 Tamsulosin HCl [Flomax] 0.4 mg PO DAILY@1730 #30 cap 10/15/19 The following prescriptions were given: Tamsulosin HCl [Flomax] 0.4 mg PO DAILY@1730 #30 cap Transmission Status: Pending to [facility] Primary Care Physician: Davey Duarte MD [Primary Care Provider] - Test Results: Test results from this visit will be discussed in further detail at your follow-up appointment, if applicable. Please Follow Up With: Soo Reynaga MD - Nephrology When: Next week Proposed Discharge Date: 10/15/19
--- NOTE | 2019-10-15 12:01 | DS.PCM_ITS ---
<Braden Tyler - Last Filed: 10/15/19 12:01> Discharge Date and Diagnosis - Problem List Patient Problems: Active and Suspected Problems Acute on chronic renal failure (Acute) Hyperkalemia (Acute) Date of Admission: 10/13/19 Date of Discharge: 10/15/19 - Primary Discharge Diagnosis Acute Problems: Active Problems SHANNON on CKDIII with hyperkalemia 2/2 dehydration complicated by mild urinary retention complicated by use of ARB and loop diuretic - Secondary Discharge Diagnosis Chronic Problems: Chronic Problems History of hypertension (Chronic) History of cardiac murmur (Chronic) History of carotid stenosis (Chronic) Hospital Course and Treatment Imaging Results: IMAGING: CT/Brain/Head without Contrast IMPRESSION: Stable chronic ischemic and atrophic changes. No acute intracranial abnormality. RAD/Chest PA and Lateral IMPRESSION: No acute thoracic pathology. US/Kidney and Bladder IMPRESSION: Unremarkable ultrasound of the kidneys Consults: Nephrology - [place] [facility] Operations: None Procedures: None Summary of Care Provided: Hospital course: The patient is a 84 year old F with pmhx of CKDIII otherwise as above who presented to the ER with generalized weakness over the past several weeks especially worse in the days leading up to presentation. She admitted to little po intake and c/o urinating smaller amounts but with increased frequency, no dysuria. She was found to have SHANNON on CKDIII. UA was not indicative of infection. She is a patient of Dr. Reynaga. Her lasix and irbesartan were held, she was provided with IV fluids. Nephrology was consulted and agreed that this was likely prerenal. Renal US was unremarkable. Patient had some mild urinary retention on post void residual, had a quinn catheter for one day, then was started on flomax and cath removed. The patient was seen by PT and OT and home health care was recommended. I discussed her case with her residential sales Dr. eRynaga who recommended holding lasix and ARB until follow up, which she will be able to do next week. She should also follow-up with her PCP in 1 to 2 weeks. She was discharged home with [facility] in stable condition. This patient was seen by Braden Tyler PA-C under the supervision of Doctor Radha. [] Patient Problems: Active and Suspected Problems Acute on chronic renal failure (Acute) Hyperkalemia (Acute) - Physical Exam Vitals/I&O's: Vital Signs Temp Pulse Resp BP Pulse Ox 98.4 F 69 16 123/45 H 96 10/15/19 09:50 10/15/19 09:50 10/15/19 09:50 10/15/19 09:50 10/15/19 09:50 Oxygen Delivery Method Room Air Weight: 195 lb 8.8 oz Body Mass Index (BMI) 34.6 Intake and Output for Last 24 Hours 10/13/19 10/14/19 10/15/19 23:59 23:59 23:59 Intake Total 1480 / 1480 2720 / 2720 1000 / 1000 Output Total 200 / 200 850 / 850 600 / 600 Balance 1280 / 1280 1870 / 1870 400 / 400 General: Alert, Oriented x3, Cooperative HEENT: Atraumatic, PERRLA, EOMI, Normocephalic Neck: Supple, No JVD, Negative Carotid Bruits Lungs: Clear to auscultation, Normal air movement Cardiovascular: Regular rate, No murmurs Abdomen: Bowel Sounds Present, Soft, Non Tender, Obese Extremities: No edema, Capillary Refill Less than 3 Seconds Skin: No rashes, No breakdown Musculoskeletal: No Tenderness to Palpation of Joints or Extremities Neurological: Cranial nerves II-XII grossly intact Psych/Mental Status: Normal Affect, Appropriate, Alert and oriented to time, place, person, mood and affect Laboratory Results 10/15/19 08:00: WBC 4.3 L, RBC 3.09 L, Hgb 9.6 L, Hct 29.5 L, MCV 95.5, MCH 31.1, MCHC 32.5, RDW Std Deviation 57.2 H, RDW Coeff of Yolanda 16.3 H, Plt Count 168, MPV 10.0, Immature Gran % (Auto) 0.200, Neut % (Auto) 52.5, Lymph % (Auto) 33.0, [place] % (Auto) 10.6 H, Eos % (Auto) 3.2, Baso % (Auto) 0.5, Absolute Neuts (auto) 2.3, Absolute Lymphs (auto) 1.43, Nucleated RBC % 0 10/15/19 08:00: Sodium 146 H, Potassium 4.1, Chloride 119 H, Carbon Dioxide 24.0, Anion Gap 3 L, BUN 52 H, Creatinine 2.58 H, Estim Creat Clear Calc 13.67, Est GFR (MDRD) Af Amer 23 L, Est GFR (MDRD) Non-Af 19 L, BUN/Creatinine Ratio 20.2 H, Glucose 82, Calcium 8.7 Current Medications Acetaminophen (Tylenol) 650 mg PO Q6H PRN PRN PRN Reason: Pain Score 1-10/Temp > 100.7 F Hydrocodone Bitart/Acetaminophen ([place] 5mg-325mg) 1 tablet PO Q6H PRN PRN PRN Reason: PAIN 1-10/10 Allopurinol (Zyloprim) 200 mg PO DAILY [facility] Last Admin: 10/15/19 09:50 Dose: 200 mg Documented by: Amlodipine Besylate (Norvasc) 5 mg PO DAILY [facility] Last Admin: 10/15/19 09:50 Dose: 5 mg Documented by: Aspirin (Aspirin, Baby) 81 mg PO DAILY@0800 [facility] Last Admin: 10/15/19 09:51 Dose: 81 mg Documented by: Atorvastatin Calcium (Lipitor) 40 mg PO QHS [facility] Last Admin: 10/14/19 21:59 Dose: 40 mg Documented by: Duloxetine HCl (Cymbalta) 20 mg PO DAILY [facility] Last Admin: 10/15/19 09:51 Dose: 20 mg Documented by: Heparin Sodium (Porcine) (Heparin Na) 5,000 unit SC Q8 [facility] Last Admin: 10/15/19 06:47 Dose: 5,000 unit Documented by: Sodium Chloride () 1,000 mls @ 100 mls/hr IV .Q10H [facility] Last Admin: 10/15/19 03:52 Dose: 100 mls/hr Documented by: Isosorbide Mononitrate (Imdur) 60 mg PO DAILY [facility] Last Admin: 10/15/19 09:51 Dose: 60 mg Documented by: Melatonin (Melatonin) 3 mg PO QHS PRN PRN PRN Reason: INSOMNIA Last Admin: 10/14/19 21:59 Dose: 3 mg Documented by: Metoprolol Tartrate (Lopressor (Beta Sergio)) 50 mg PO BID [facility] Last Admin: 10/15/19 09:50 Dose: 50 mg Documented by: Nutritional Formula (Lactose Free) (Ensure Enlive) 120 ml PO 4X/DAY [facility] Last Admin: 10/15/19 09:46 Dose: Not Given Documented by: Ondansetron HCl (Zofran) 4 mg IV Q8H PRN PRN PRN Reason: NAUSEA/VOMITING Pantoprazole Sodium (Protonix) 40 mg PO DAILY [facility] Last Admin: 10/15/19 09:51 Dose: 40 mg Documented by: Sodium Chloride () 10 - 40 ml IV UD PRN PRN Reason: SALINE FLUSH Tamsulosin HCl (Flomax) 0.4 mg PO DAILY@1730 [facility] Discharge Diet: Low fat/ Low Cholesterol, 2000 mg Sodium Diet, Renal Diet Discharge Activity: Return to Normal Activity Home Medications: Medications to take at Discharge Allopurinol [Zyloprim] 200 mg PO DAILY 10/24/14 Amlodipine [Norvasc] 5 mg PO DAILY 10/24/14 Aspirin [Aspirin, Baby] 81 mg PO DAILY@0800 10/24/14 Atorvastatin Calcium [Lipitor] 40 mg PO QHS 10/24/14 Cyanocobalamin [Vitamin B12] 1,000 mcg IM Q30D 10/24/14 Hydrocodone Bitart/Apap 5-325 [[place] 5/325] 1 tablet PO Q6H PRN PRN 10/24/14 Isosorbide Mononitrate [Imdur] 60 mg PO DAILY 10/24/14 Zolpidem Tartrate [Ambien] 5 mg PO QHS PRN PRN 10/24/14 Duloxetine Hcl [Cymbalta] 20 mg PO DAILY 10/13/19 Hydrocortisone 2.5% Crm [Hytone] 1 applic TOPICAL BID PRN PRN 10/13/19 Metoprolol Tartrate 50 mg PO BID 10/13/19 Nitroglycerin [Nitrostat] 0.4 mg SL Q5M PRN 10/13/19 Omeprazole 40 mg PO DAILY 10/13/19 Pyridoxine HCl (Vitamin B6) [Vitamin B-6] 100 mg PO DAILY 10/13/19 Tamsulosin HCl [Flomax] 0.4 mg PO DAILY@1730 #30 cap 10/15/19 Following Prescrptions Were Given to Patient: Tamsulosin HCl [Flomax] 0.4 mg PO DAILY@1730 #30 cap Transmission Status: Received by [facility] Primary Care Physician: Davey Duarte MD [Primary Care Provider] - Please follow up with your Primary Care Physician in: 1-2 weeks Please Follow Up With: Soo Reynaga MD When: Next week Please Follow Up With: Davey Duarte MD Disposition: Home with Home Health Minutes spent on discharge:: 35 Patient Condition:: Stable Medical Necessity - Tobacco Use Smoking Status: Never smoker Meaningful Use Info Meaningful Use Diagnoses (Choose all that apply): None applicable <Cam Garcia - Last Filed: 10/15/19 12:35> Discharge Date and Diagnosis - Primary Discharge Diagnosis Acute Problems: Active Problems Acute on chronic renal failure (Acute) Hyperkalemia (Acute) - Secondary Discharge Diagnosis Chronic Problems: Chronic Problems History of hypertension (Chronic) History of cardiac murmur (Chronic) History of carotid stenosis (Chronic) Hospital Course and Treatment Operations: None Procedures: None Summary of Care Provided: Patient seen and examined independently. Data reviewed. I agree with the above note by the physician operations assistant. The patient is a 84 year old F presents with SHANNON. Overall improved with with IV fluids and holding furosemide and irbesartan. Patient also had urinary retention which complicated the picture. Patient was seen in consultation by nephrology. Patient will continue to hold her furosemide and irbesartan. Patient will follow-up with nephrology. Patient to to be discharged in stable condition. [] - Physical Exam Vitals/I&O's: Vital Signs Temp Pulse Resp BP Pulse Ox 36.9 C 69 16 123/45 H 96 10/15/19 09:50 10/15/19 09:50 10/15/19 09:50 10/15/19 09:50 10/15/19 09:50 Oxygen Delivery Method Room Air Weight: 88.7 kg Body Mass Index (BMI) 34.6 Intake and Output for Last 24 Hours 10/13/19 10/14/19 10/15/19 23:59 23:59 23:59 Intake Total 1480 / 1480 2720 / 2720 1000 / 1000 Output Total 200 / 200 850 / 850 600 / 600 Balance 1280 / 1280 1870 / 1870 400 / 400 General: Alert, Cooperative HEENT: Atraumatic, Normocephalic Lungs: Clear to auscultation, Normal air movement, No rhonchi, No wheeze Cardiovascular: Regular rate, No murmurs Abdomen: Bowel Sounds Present, Non Tender Psych/Mental Status: Normal Affect, Appropriate Laboratory Results 10/15/19 08:00: WBC 4.3 L, RBC 3.09 L, Hgb 9.6 L, Hct 29.5 L, MCV 95.5, MCH 31.1, MCHC 32.5, RDW Std Deviation 57.2 H, RDW Coeff of Yolanda 16.3 H, Plt Count 168, MPV 10.0, Immature Gran % (Auto) 0.200, Neut % (Auto) 52.5, Lymph % (Auto) 33.0, [place] % (Auto) 10.6 H, Eos % (Auto) 3.2, Baso % (Auto) 0.5, Absolute Neuts (auto) 2.3, Absolute Lymphs (auto) 1.43, Nucleated RBC % 0 10/15/19 08:00: Sodium 146 H, Potassium 4.1, Chloride 119 H, Carbon Dioxide 24.0, Anion Gap 3 L, BUN 52 H, Creatinine 2.58 H, Estim Creat Clear Calc 13.67, Est GFR (MDRD) Af Amer 23 L, Est GFR (MDRD) Non-Af 19 L, BUN/Creatinine Ratio 20.2 H, Glucose 82, Calcium 8.7 Current Medications Acetaminophen (Tylenol) 650 mg PO Q6H PRN PRN PRN Reason: Pain Score 1-10/Temp > 100.7 F Hydrocodone Bitart/Acetaminophen ([place] 5mg-325mg) 1 tablet PO Q6H PRN PRN PRN Reason: PAIN 1-10/10 Allopurinol (Zyloprim) 200 mg PO DAILY [facility] Last Admin: 10/15/19 09:50 Dose: 200 mg Documented by: Amlodipine Besylate (Norvasc) 5 mg PO DAILY [facility] Last Admin: 10/15/19 09:50 Dose: 5 mg Documented by: Aspirin (Aspirin, Baby) 81 mg PO DAILY@0800 [facility] Last Admin: 10/15/19 09:51 Dose: 81 mg Documented by: Atorvastatin Calcium (Lipitor) 40 mg PO QHS [facility] Last Admin: 10/14/19 21:59 Dose: 40 mg Documented by: Duloxetine HCl (Cymbalta) 20 mg PO DAILY [facility] Last Admin: 10/15/19 09:51 Dose: 20 mg Documented by: Heparin Sodium (Porcine) (Heparin Na) 5,000 unit SC Q8 [facility] Last Admin: 10/15/19 06:47 Dose: 5,000 unit Documented by: Sodium Chloride () 1,000 mls @ 100 mls/hr IV .Q10H [facility] Last Admin: 10/15/19 03:52 Dose: 100 mls/hr Documented by: Isosorbide Mononitrate (Imdur) 60 mg PO DAILY [facility] Last Admin: 10/15/19 09:51 Dose: 60 mg Documented by: Melatonin (Melatonin) 3 mg PO QHS PRN PRN PRN Reason: INSOMNIA Last Admin: 10/14/19 21:59 Dose: 3 mg Documented by: Metoprolol Tartrate (Lopressor (Beta Sergio)) 50 mg PO BID [facility] Last Admin: 10/15/19 09:50 Dose: 50 mg Documented by: Nutritional Formula (Lactose Free) (Ensure Enlive) 120 ml PO 4X/DAY [facility] Last Admin: 10/15/19 09:46 Dose: Not Given Documented by: Ondansetron HCl (Zofran) 4 mg IV Q8H PRN PRN PRN Reason: NAUSEA/VOMITING Pantoprazole Sodium (Protonix) 40 mg PO DAILY [facility] Last Admin: 10/15/19 09:51 Dose: 40 mg Documented by: Sodium Chloride () 10 - 40 ml IV UD PRN PRN Reason: SALINE FLUSH Tamsulosin HCl (Flomax) 0.4 mg PO DAILY@1730 [facility] Discharge Diet: Low fat/ Low Cholesterol, 2000 mg Sodium Diet, Renal Diet Discharge Activity: Return to Normal Activity Disposition: Home with Home Health Minutes spent on discharge:: 35 Patient Condition:: Stable Medical Necessity - Tobacco Use Smoking Status: Never smoker Inpatient E&M: 82805 Disch Hosp
--- NOTE | 2019-10-15 13:40 | CASEMGMT ---
Addendum entered by Joey Jeffers 10/15/19 14:38: Call received back from Eboni @ [facility]. She states they are able to accept pt and start of care would be next week, with the earliest day being Wed. Pt made aware and confirms she is agreeable to this. Pt denies any other needs/questions/concerns at this time and voices appreciation. Addendum entered by Joey Jeffers 10/15/19 14:32: Call placed to Jeanna @ [facility] and referral made for SN and PT. She is aware pt/dtr are agreeable to [facility] not starting until mid next week. Call placed to Nam @ [facility] and referral made. Order entered into computer for referral. Call placed to [facility] w/disabilities to inquire about services/assistance they can provide. MEAGAN PAIGE informed they do not have any services/assistance/resources for hearing impairment unless it pertains to helping w/employment. MEAGAN Wilson, made aware and she states she will inform pt's daughter, Kika, of this when she comes in to potato picker pt. Original Note: RN CM NOTE: Pt being discharged. PT/OT evals reviewed. PT recommends additional therapy. Call placed to pt's daughter, Kika, to discuss discharge planning. No answer. Message let for her to return call to this RN GRECIA. RN CM to room to talk with pt to discuss discharge planning, therapy recommendations, and [facility]. While RN GRECIA in room, Kika, returned call and RN CM spoke w/both pt and daughter. Pt/daughter both agreeable to [facility]. Pt denies having preference of agency. Kika states prefers [facility], as pt has had therapy through [facility] in the past. She was made aware [facility] would not be able to accept pt until mid next-week/most likely Fri. She states she is okay with that, stating she is a nurse and can look after pt and help w/medications until [facility] able to start care. Pt agreeable with this. Also discussed CCN w/Kika and she is interested in referral. Kika inquiring about adaptive equipment for pt d/t her hearing impairment, stating she is not able to hear the doorbell in her home. Kika made aware RN GRECIA can leave information in the room for [facility] w/disabilities that she can call. Kika aware pt is being discharged today. She states she works until 3 PM and will come to pick pt up at that time. She states it would be helpful for RN to await going over discharge paperwork/instructions until she arrives. RNKatie, aware of same. Lynn SILVAN MEAGAN CM
[2019-10-15 14:30] VITALS: BP 122/40; PULSE 65; RESP 15; TEMP 36.6; O2SAT 98
[2019-10-15 15:00] VITALS: PULSE 66
--- NOTE | 2019-10-18 14:19 | CASEMGMT ---
MEAGAN DC PHONE CALL DC DATE: 10/15/2019 DC DISPOSITION: Home with [facility] DC DIAGNOSIS: SHANNON LACE/STRATA: 12/24 F/U APPTS MADE PRIOR TO DC: yes Attemped call to patient's phone. No answer and no name identifier on message. Call to [facility], spoke with Jeanna who stated start of care for patient will be tomorrow. Constance ARMAS RN AC
--- NOTE | 2019-10-20 13:16 | CCN.REFER ---
Patient's daughter Kika states that they do not want CCN right now since patient is receiving HHS. Education provided on difference between both services. Daughter will contact CCN if she feels the need is there when HH discharges.
--- NOTE | 2019-12-02 09:06 | CCN.REFER ---
PATIENT/DTR DECLINE CCN SERVICES. STATES NOT NEEDED AFTER HHS DISCHARGED. FOLLOW UP PHONE CALLS MADE W/ NO RETURNED CALL TO DTR TO SEE IF CHANGED THIER MIND.
== END 2019-10-15 16:01 | disposition home health service (06) | DRG 641 ==
LOC: ED 17:44 → PCU 19:36
PROVIDERS: Hospitalist; Admitting Provider Family Medicine; Emergency Provider Emergency Medicine; PCP Internal Medicine
DX: E86.0 Dehydration (principal); N17.9 Acute kidney failure, unspecified; E87.5 Hyperkalemia; N18.3 Chronic kidney disease, stage 3 (moderate); I12.9 Hypertensive chronic kidney disease with stage 1 through stage 4 chronic kidney disease, or unspecified chronic kidney disease; K21.9 Gastro-esophageal reflux disease without esophagitis; I25.10 Atherosclerotic heart disease of native coronary artery without angina pectoris; E78.5 Hyperlipidemia, unspecified; G47.33 Obstructive sleep apnea (adult) (pediatric); R33.9 Retention of urine, unspecified
CPT/HCPCS: 36415; 70450; 71046; 76770; 80048; 80053; 81001; 82436; 84132; 84133; 84300; 85025; 93005; 97116; 97161; 97166; 97530; 97802; 99285; J7030; A4216

== ENCOUNTER 2019-10-17 03:46 | Emergency (ER) | payer MEDICARE, OTHER, SELFPAY ==
[2019-10-13 19:02] VITALS: BMI 34.6
[2019-10-17 03:47] VITALS: BP 119/52; PULSE 71; RESP 16; TEMP 36.8; O2SAT 99; BMI 31.1
--- NOTE | 2019-10-17 04:04 | EKG12_ITS ---
Test Reason : ALTERED LOC Blood Pressure : / mmHG Vent. Rate : 073 BPM Atrial Rate : 073 BPM P-R Int : 194 ms QRS Dur : 072 ms QT Int : 396 ms P-R-T Axes : 056 024 069 degrees QTc Int : 436 ms Normal sinus rhythm Low voltage QRS Nonspecific ST abnormality Abnormal ECG Confirmed by ZURI ROA, MARCE ([id number]), industrial editor ANNABEL ADEN ([id number]) on 10/18/2019 1:16:34 PM Referred By: JARED Confirmed By:MARCE KEATING MD
--- NOTE | 2019-10-17 04:04 | CT_ITS ---
STUDY: CT BRAIN WITHOUT CONTRAST REASON FOR EXAM: Female, 84 years old. ALTERED LOC,WEAKNESS,FOUND UNRESPONSIVE -- HX:HTN,CAD,CKD STAGE 3 RADIATION DOSAGE (If Supplied By Facility): CTDIvol = ( 44.99 ) mGy, DLP = ( 796.11 ) mGycm TECHNIQUE: Transaxial CT imaging of the brain was performed without administration of intravenous contrast material. Individualized dose optimization techniques were used for this CT. COMPARISON: No relevant priors. FINDINGS: Normal soft tissue structures. Normal calvarium. There is moderate cerebral atrophy with widening of the extra-axial spaces and ventricular dilatation. Normal white matter tracts of the cerebral hemispheres. Normal basal ganglia and thalami. Normal brainstem. There is moderate cerebellar atrophy. There is no intracranial hemorrhage. There are no findings of an acute ischemic infarction. Normal visualized paranasal sinuses. CT/Brain/Head without Contrast IMPRESSION: Chronic involutional changes of the brain. There is NO hemorrhage, edema, mass, mass effect or midline shift. Electronically Signed: Raul Fernando MD at 5:13 EDT , Service support ,
[2019-10-17 04:15] LABS: Absolute Lymphocyte Count 1.52 X10^3/uL (0.83-4.51); Absolute Neutrophil Count 2.3 X10^3/uL (2.0-7.7); Basophil# 0.02 X10^3/uL; Basophil% 0.4 % (0-1); Eosinophil# 0.14 X10^3/uL; Eosinophils% 3.1 % (0-5); Lymphocyte # 1.52 X10^3/ul (4.0); Lymphocyte % 33.8 % (19-41); Mean Corp Hgb Conc 33.3 g/dL (32-36); Mean Corpuscular Hgb 31.5 pg (27.0-32.0); Mean Corpuscular Volume 94.6 fL (81-99); Mean Platelet Vol. 10.7 fl (6.2-12.0); Monocyte# 0.55 X10^3/uL; Monocyte% 12.2 % (0-10); NRBC Flagged by Analyzer 0 % (0-5); Neutrophil # 2.26 X10^3/uL (2.7-7.7); Neutrophil % 50.3 % (47-70); Platelet Count 163 K/mm3 (150-450); RBC Distribution Width CV 16.9 % (11.6-14.6); RBC Distribution Width SD 58.4 fl (35.1-43.9); Red Blood Count 3.17 M/mm3 (4.2-5.4); White Blood Count 4.5 K/mm3 (4.4-11.0)
[2019-10-17 04:16] LABS: Bedside Glucose 64 mg/dL (70-110)
[2019-10-17 04:29] LABS: Anion Gap 8 (5-15); BUN 27 mg/dL (7-18); BUN/Creat Ratio 14.3 RATIO (10-20); Calcium,Total 9.3 mg/dL (8.5-10.1); Chloride 109 mmol/L (98-107); Creatinine, Serum 1.89 mg/dL (0.55-1.02); EST Glomerular Filtration Rate 27 mL/min (>60); Est Glom Filt Rate - Afr Amer 33 mL/min (>60); Estimated Creatinine Clearance 21.93 ml/min; Glucose 73 mg/dL (74-106); Potassium 4.3 mmol/L (3.5-5.1); Sodium Level 139 mmol/L (136-145)
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
[2019-10-17] MEDS: Dextrose 50%-Water 25 GM/50 ML DISP.SYRIN IV (05:52)
[2019-10-17 05:54] VITALS: BP 113/87; PULSE 73; RESP 16; O2SAT 97
[2019-10-17 06:53] VITALS: BP 139/54; PULSE 76; RESP 18; O2SAT 100
== END 2019-10-17 09:05 | disposition home or self-care (01) ==
LOC: ED 04:17
PROVIDERS: Emergency Provider Emergency Medicine; PCP Internal Medicine
DX: R41.82 Altered mental status, unspecified (principal); T42.6X5A Adverse effect of other antiepileptic and sedative-hypnotic drugs, initial encounter; Y92.9 Unspecified place or not applicable; K21.9 Gastro-esophageal reflux disease without esophagitis; I12.9 Hypertensive chronic kidney disease with stage 1 through stage 4 chronic kidney disease, or unspecified chronic kidney disease; N18.9 Chronic kidney disease, unspecified; Z79.82 Long term (current) use of aspirin; Z79.899 Other long term (current) drug therapy
CPT/HCPCS: 70450; 80048; 82962; 85025; 93005; 99285; A4216

== ENCOUNTER → 2019-12-24 16:06 | Outpatient (CLI) | payer MEDICARE, OTHER, SELFPAY ==
[2019-12-24 17:15] LABS: Anion Gap 2 (5-15); BUN 14 mg/dL (7-18); Calcium,Total 9.3 mg/dL (8.5-10.1); Chloride 108 mmol/L (98-107); Creatinine, Serum 1.08 mg/dL (0.55-1.02); EST Glomerular Filtration Rate 51 mL/min (>60); Est Glom Filt Rate - Afr Amer 62 mL/min (>60); Glucose 119 mg/dL (74-106); Potassium 4.1 mmol/L (3.5-5.1); Sodium Level 141 mmol/L (136-145)
== END ==
PROVIDERS: PCP Internal Medicine; Referring Provider Internal Medicine Nephrology; Visit Provider Internal Medicine Nephrology
DX: N18.30 Chronic kidney disease, stage 3 unspecified (principal)
CPT/HCPCS: 36415; 80048

== ENCOUNTER → 2019-12-27 | Outpatient (CLI) | payer MEDICARE, OTHER, SELFPAY ==
[2019-12-27 09:00] LABS: Protein, Urine (Random) 11.5 mg/dL (<11.9); Protein:Creat Ratio 99 mg/g CRE (0-200)
== END | disposition home or self-care (01) ==
LOC: LAB 06:56 → LABSPEC 06:57
PROVIDERS: PCP Internal Medicine; Referring Provider Internal Medicine Nephrology; Visit Provider Internal Medicine Nephrology
DX: N18.30 Chronic kidney disease, stage 3 unspecified (principal)
CPT/HCPCS: 82570; 84156

== ENCOUNTER → 2020-06-26 13:29 | Outpatient (CLI) | payer MEDICARE, OTHER, SELFPAY ==
[2020-06-26 14:32] LABS: Protein, Urine (Random) 11.2 mg/dL (<11.9); Protein:Creat Ratio 158 mg/g CRE (0-200)
[2020-06-26 14:53] LABS: Anion Gap 2 (5-15); BUN 16 mg/dL (7-18); BUN/Creat Ratio 13.4 RATIO (10-20); Calcium,Total 9.2 mg/dL (8.5-10.1); Chloride 107 mmol/L (98-107); Creatinine, Serum 1.19 mg/dL (0.55-1.02); EST Glomerular Filtration Rate 46 mL/min (>60); Est Glom Filt Rate - Afr Amer 56 mL/min (>60); Glucose 97 mg/dL (74-106); Potassium 4.1 mmol/L (3.5-5.1); Sodium Level 138 mmol/L (136-145)
== END ==
PROVIDERS: PCP Internal Medicine; Referring Provider Internal Medicine Nephrology; Visit Provider Internal Medicine Nephrology
DX: N18.30 Chronic kidney disease, stage 3 unspecified (principal)
CPT/HCPCS: 36415; 80048; 82570; 84156

== ENCOUNTER → 2020-12-20 13:13 | Outpatient (CLI) | payer MEDICARE, OTHER, SELFPAY ==
[2020-12-20 13:46] LABS: Hematocrit 35.5 % (37-47); Hemoglobin 11.3 g/dL (12.0-15.0); Mean Corp Hgb Conc 31.8 g/dL (32-36); Mean Corpuscular Hgb 31.2 pg (27.0-32.0); Mean Corpuscular Volume 98.1 fL (81-99); Platelet Count 184 K/mm3 (150-450); RBC Distribution Width CV 15.9 % (11.6-14.6); Red Blood Count 3.62 M/mm3 (4.2-5.4); White Blood Count 5.9 K/mm3 (4.4-11.0)
[2020-12-20 13:57] LABS: Protein, Urine (Random) 16.9 mg/dL (<11.9); Protein:Creat Ratio 158 mg/g CRE (0-200)
[2020-12-20 14:19] LABS: Anion Gap 5 (5-15); BUN 21 mg/dL (7-18); BUN/Creat Ratio 18.6 RATIO (10-20); Calcium,Total 9.5 mg/dL (8.5-10.1); Chloride 105 mmol/L (98-107); Creatinine, Serum 1.13 mg/dL (0.55-1.02); EST Glomerular Filtration Rate 49 mL/min (>60); Est Glom Filt Rate - Afr Amer 59 mL/min (>60); Glucose 111 mg/dL (74-106); Potassium 4.8 mmol/L (3.5-5.1); Sodium Level 140 mmol/L (136-145)
[2020-12-20 14:26] LABS: Vitamin D,25 Hydroxy 24.1 ng/mL
== END ==
PROVIDERS: PCP Internal Medicine; Referring Provider Internal Medicine Nephrology; Visit Provider Internal Medicine Nephrology
DX: N18.31 Chronic kidney disease, stage 3a (principal); N25.81 Secondary hyperparathyroidism of renal origin; D63.1 Anemia in chronic kidney disease
CPT/HCPCS: 36415; 80048; 82306; 82570; 83970; 84156; 85027

== ENCOUNTER 2021-03-05 16:10 | Inpatient (IN) | payer MEDICARE, OTHER, SELFPAY ==
[2021-03-05] VITALS (10 sets, daily range): BP systolic 154–223; BP diastolic 45–94; PULSE 16–82; RESP 18–64; TEMP 35.3–36.6; O2SAT 85–98; BMI 36.7
--- NOTE | 2021-03-05 16:24 | RAD_ITS ---
STUDY: X-RAY CHEST REASON FOR EXAM: Female, 85 years old. Technologist Notes Congestive heart failure, nonproductive cough. SOB / COUGH TECHNIQUE: XR Chest 1 View COMPARISON: 10/13/2019 FINDINGS: There is a left pleural effusion. Left lower lobe infiltrate. There is mild cardiac enlargement. Normal mediastinum and cholo. Normal visualized pulmonary arteries. There is atherosclerotic calcification of the aortic arch with tortuosity. There are diffuse degenerative changes of the visualized thoracic spine. There is degenerative osteoarthritis of the bilateral shoulders. There is no demonstrated abnormality of the visualized soft tissue structures of the upper abdomen. RAD/Chest 1 View (Portable) IMPRESSION: There is a left pleural effusion. Left lower lobe infiltrate. Electronically Signed: Ramiro Spangler MD at 20:03 EST , Service support ,
--- NOTE | 2021-03-05 16:24 | EKG12_ITS ---
Test Reason : CP Blood Pressure : / mmHG Vent. Rate : 070 BPM Atrial Rate : 070 BPM P-R Int : 214 ms QRS Dur : 080 ms QT Int : 438 ms P-R-T Axes : 058 083 046 degrees QTc Int : 473 ms Sinus rhythm with 1st degree A-V block Poor R wave progression Confirmed by ROSANGELA ROA, CISCO ([id number]), clinical editor MARCO ROCHA ([id number]) on 03/07/2021 12:11:46 PM Referred By: EVELINA Confirmed By:CISCO ADAMES MD
[2021-03-05 16:59] LABS: Absolute Lymphocyte Count 0.74 X10^3/uL (0.83-4.51); Absolute Neutrophil Count 4.7 X10^3/uL (2.0-7.7); Basophil# 0.01 X10^3/uL; Basophil% 0.2 % (0-1); Eosinophil# 0.11 X10^3/uL; Eosinophils% 1.8 % (0-5); Hematocrit 33.2 % (37-47); Hemoglobin 10.6 g/dL (12.0-15.0); Lymphocyte # 0.74 X10^3/ul (0.83-4.51); Lymphocyte % 12.2 % (19-41); Mean Corp Hgb Conc 31.9 g/dL (32-36); Mean Corpuscular Hgb 30.8 pg (27.0-32.0); Mean Corpuscular Volume 96.5 fL (81-99); Mean Platelet Vol. 9.6 fl (6.2-12.0); Monocyte# 0.47 X10^3/uL; Monocyte% 7.7 % (0-10); NRBC Flagged by Analyzer 0 % (0-5); Neutrophil # 4.72 X10^3/uL (2.7-7.7); Neutrophil % 77.6 % (47-70); Platelet Count 233 K/mm3 (150-450); RBC Distribution Width CV 15.9 % (11.6-14.6); RBC Distribution Width SD 56.7 fl (35.1-43.9); Red Blood Count 3.44 M/mm3 (4.2-5.4); White Blood Count 6.1 K/mm3 (4.4-11.0)
[2021-03-05 17:14] LABS: Anion Gap 4 (5-15); BUN 18 mg/dL (7-18); BUN/Creat Ratio 16.1 RATIO (10-20); Calcium,Total 9.4 mg/dL (8.5-10.1); Chloride 108 mmol/L (98-107); Creatinine, Serum 1.12 mg/dL (0.55-1.02); EST Glomerular Filtration Rate 49 mL/min (>60); Est Glom Filt Rate - Afr Amer 60 mL/min (>60); Estimated Creatinine Clearance 29.57 ml/min; Glucose 132 mg/dL (74-106); Potassium 4.2 mmol/L (3.5-5.1); Sodium Level 141 mmol/L (136-145); Troponin-I HS 12 pg/mL (3.0-54.0)
[2021-03-05 17:19] LABS: BNP,B-Type NATRIURETIC PEPTIDE 922.2 pg/mL (0-100)
--- NOTE | 2021-03-05 18:53 | ED.VIS.DYS ---
HPI History of Present Illness Chief Complaint: Shortness of Breath Informant: patient and family Onset/Context/Timing Onset: Weeks Context: sudden and gradual (Gradually has gotten worse.) Timing: Intermittent Quality: Positive for Dyspnea on exertion; Negative for Orthopnea, PND and Wheezing Maximum Severity: Moderate Worsened by: Exertion; Not Worsened By Lying flat and Coughing Relieved by: Rest Associated Symptoms Negative for cough, rhinorrhea, post nasal drip, ear pain, sore throat or clear sputum Chest Pain: Positive for None Narrative Narrative: Patient is an elderly woman with history of hypertension, carotid stenosis, renal failure who presents from PCPs office because of 6 pound weight gain, dyspnea on exertion and bilateral rales. She denies history of coronary disease. She denies history congestive heart failure. Based on medication she has history of dyslipidemia. She also has history of gout. She denies fever, chills night sweats. She denies headache, ocular, visual auditory symptoms. She denies chest discomfort of any type. She does report dyspnea on exertion. Denies denies orthopnea or PND. She denies GI symptoms. She denies black or maroon-colored stool. She is at increased swelling from baseline of her lower extremity. PE Risk Factors: Negative for Cancer, OCP + Smoking + > 35, Prior DVT or PE, Recent immobilization, Recent surgery and Recent travel Prior similar symptoms: No Recent Illness/Hospitalization: No PFSH PFSH Home Medications allopurinol 200 mg PO DAILY 10/24/14 [History Last Taken 03/05/21] aspirin 81 mg PO DAILY@0800 10/24/14 [History Last Taken 03/05/21] atorvastatin 40 mg PO QHS 10/24/14 [History Last Taken 03/05/21 19:55] cyanocobalamin (vitamin B-12) 1,000 mcg IM Q30D 10/24/14 [History Last Taken Unknown] hydrocodone-acetaminophen 1 tab PO Q6H PRN PRN 10/24/14 [History Last Taken 03/05/21 19:57] isosorbide mononitrate 60 mg PO DAILY 10/24/14 [History Last Taken 03/05/21] duloxetine 40 mg PO DAILY 10/13/19 [History Last Taken 03/05/21] hydrocortisone 1 applic TOPICAL BID PRN PRN 10/13/19 [History Last Taken Unknown] nitroglycerin 0.4 mg SL Q5M PRN 10/13/19 [History Last Taken Unknown] omeprazole 40 mg PO DAILY 10/13/19 [History Last Taken 03/05/21] pyridoxine (vitamin B6) 100 mg PO DAILY 10/13/19 [History Last Taken 03/05/21] irbesartan [Avapro] 300 mg PO DAILY 03/05/21 [History Last Taken Unknown] labetalol 300 mg PO BID 03/05/21 [History Last Taken Unknown] terazosin [Hytrin] 10 mg PO QHS 03/05/21 [History Last Taken Unknown] Allergy/AdvReac Type Severity Reaction Status Date / Time GREG Inhibitors AdvReac Unknown Verified 03/05/21 16:12 carvedilol [From Coreg] AdvReac Unknown Verified 03/05/21 16:12 nifedipine [From Procardia] AdvReac Unknown Verified 03/05/21 16:12 simvastatin [From Zocor] AdvReac Unknown Verified 03/05/21 16:12 spironolactone AdvReac Unknown Verified 03/05/21 16:12 Social History (Updated 03/05/21 @ 18:[address] Zeyad Camejo MD) household members: family Smoking Status: Never smoker substance use type: does not use ROS ROS ED Constitutional Constitutional ED: Reports other Details: 6 pound weight gain ; Denies chills, fever(s), sweats or weight loss Eyes Eyes: Denies blurry vision, change in vision or diplopia ENT ENT ED: Denies ear pain, rhinorrhea or sore throat Cardiovascular Cardiovascular: Denies chest pain, orthopnea, palpitations, paroxysmal nocturnal dyspnea or racing heartbeat Respiratory/Chest Respiratory/Chest: Reports dyspnea and dyspnea on exertion; Denies cough, orthopnea, paroxysmal nocturnal dyspnea or sputum Gastrointestinal Gastrointestinal: Denies abdominal pain, constipation, diarrhea, melena, nausea or vomiting Genitourinary Genitourinary ED: Denies dysuria, hematuria or urinary frequency Musculoskeletal Musculoskeletal: Denies arthralgias, back pain, myalgias or neck pain Integumentary Denies abscess or rash Neurologic Neurologic: Denies headache(s), paresthesias or weakness Psychiatric Psychiatric: Denies anxiety or depression Endocrine Endocrinology: Denies polydipsia, polyphagia or polyuria Hematologic/Lymphatic Hematologic/Lymphatic: Denies easy bleeding or easy bruising EXAM Physical Exam Const Vital Signs: 03/05/21 16:12 03/05/21 19:13 03/05/21 19:15 Temperature 95.6 F L Temperature Source Temporal Pulse Rate 64 80 80 Respiratory Rate 18 28 H Respiratory Effort Respiratory Depth Respiratory Pattern Blood Pressure 212/62 H 223/79 H 223/79 H Blood Pressure Mean 112 127 Pulse Ox 97 85 Oxygen Delivery Method Room Air Room Air Oxygen Flow Rate (L/min) 2 03/05/21 19:19 03/05/21 19:43 Temperature Temperature Source Pulse Rate 80 Respiratory Rate 26 H Respiratory Effort Labored Respiratory Depth Normal Respiratory Pattern Tachypnea Blood Pressure 211/94 H Blood Pressure Mean 133 Pulse Ox 95 Oxygen Delivery Method Nasal Cannula Nasal Cannula Oxygen Flow Rate (L/min) 2 2 Positive well nourished, well developed and obese General Appearance ED: well developed and NAD Nutritional Appearance: obese HEENT Reports TM's clear and moist mucous membranes atraumatic; Negative for trauma or tenderness Tympanic Membrane ED: Yes TM's clear Eyes PERRL and EOMs intact bilaterally General Eye ED: Negative for pale conjunctiva or scleral icterus Neck no lymphadenopathy, supple, no meningeal signs and no JVD Resp normal respiratory effort and No clear to auscultation bilaterally Auscultation: rales bilateral base (Right greater than left) Cardio regular rate, regular rhythm, S1 normal heart sound, S2 normal heart sound and no murmurs GI non-tender, non-distended and no masses Auscultation: normoactive bowel sounds Palpation: soft Back/Spine no CVA tenderness and normal to inspection Extremity normal to inspection General Extremety ED: Yes tenderness Neuro oriented x3 and CN's II-XII intact bilaterally [place] Coma Scale: document GCS findings Spontaneous Obeys Commands Oriented 15 Sensorium / Orientation: alert Sensory Exam: other Patient is very hard of hearing Psych mental status grossly normal Thought Process: normal thought process Skin no wounds Lesions: no lesions Rashes: no rashes MDM MDM MDM Narrative Medical decision making narrative: Clinically patient has congestive heart failure. Need to rule out cause. There is no history of valvular heart disease. There is no history of thyroid disease coronary disease. Will obtain troponin. CBC to assess for anemia and basic metabolic panel to assess for renal function. Lab Data Attestation: I reviewed the patient's lab results. Labs: Laboratory Results - last 24 hr 03/05/21 03/05/21 03/05/21 16:50 16:50 16:50 WBC 6.1 RBC 3.44 L Hgb 10.6 L Hct 33.2 L MCV 96.5 MCH 30.8 MCHC 31.9 L RDW Std Deviation 56.7 H RDW Coeff of Yolanda 15.9 H Plt Count 233 MPV 9.6 Immature Gran % (Auto) 0.500 Neut % (Auto) 77.6 H Lymph % (Auto) 12.2 L Meagher % (Auto) 7.7 Eos % (Auto) 1.8 Baso % (Auto) 0.2 Absolute Neuts (auto) 4.7 Absolute Lymphs (auto) 0.74 L Nucleated RBC % 0 Sodium 141 Potassium 4.2 Chloride 108 H Carbon Dioxide 29.0 Anion Gap 4 L BUN 18 Creatinine 1.12 H Estim Creat Clear Calc 29.57 Est GFR (MDRD) Af Amer 60 Est GFR (MDRD) Non-Af 49 L BUN/Creatinine Ratio 16.1 Glucose 132 H Calcium 9.4 Troponin I High Sens 12 B-Natriuretic Peptide 922.2 H Radiography Chest X-Ray - ED: 1 View and Read by ED Physician (Single view portable chest x-ray interpreted by la at 1938 as congestive heart failure. There is calcification aorta. Cardiac silhouette is unremarkable. Osseous structures are unremarkable.) Diagnostic Testing: Clinical Impression(s) from Imaging Studies Chest X-Ray 03/05/21 16:24 IMPRESSION: There is a left pleural effusion. Left lower lobe infiltrate. Electronically Signed: Ramiro Spangler MD at 20:03 EST , Service support , EKG Initial EKG: Attestation: I personally reviewed and interpreted this EKG as follows: Interpretation: Sinus Rhythm (Sinus rhythm with a trickle rate of 70 and first-degree AV block. HI interval is 214 ms. Cures duration 80 ms. QT duration 438 ms. [place] is normal.) Discharge Plan Triage Chief Complaint: Shortness of Breath ED Provider: Zeyad Camejo Dx/Rx/DC Orders Clinical Impression: New onset of congestive heart failure, Accelerated essential hypertension, Mild renal insufficiency Primary Care Provider: Davey Duarte
[2021-03-05] MEDS: Furosemide 20 MG/2 ML VIAL IV ×2 (19:15→23:25)
[2021-03-05] MEDS: Nitroglycerin Oint 1 INCH PACKET TD (19:15)
[2021-03-05] MEDS: HYDROcodone Bitartrate/Apap 5/325 Tablet PO (19:52)
--- NOTE | 2021-03-05 20:19 | PCM.HP.STD ---
HPI - General HPI Narrative Griselda Rodríguez is an 85-year-old female who presents to the emergency room with shortness of breath that has been gradual over the past 2 weeks. She was seen by her primary care physician and sent to the emergency room for evaluation. Upon arrival the patient was hypertensive and dyspneic requiring oxygen to maintain her oxygen saturation above 90%. Laboratory studies reveal an elevated BNP greater than 900 with no previous mention on her history of congestive heart failure. Initial troponin is 12 and negative and other laboratory studies are unremarkable. Patient did improve her breathing status with a dose of Lasix in the emergency room and oxygen by nasal cannula. Patient denies any chest pain, nausea, vomiting or diarrhea. Patient will be admitted to the progressive care unit and an echocardiogram will be done in the morning to evaluate her heart function regarding congestive heart failure. [facility] Home Medications allopurinol 200 mg PO DAILY 10/24/14 [History Last Taken 03/05/21] aspirin 81 mg PO DAILY@0800 10/24/14 [History Last Taken 03/05/21] atorvastatin 40 mg PO QHS 10/24/14 [History Last Taken 03/05/21 19:55] cyanocobalamin (vitamin B-12) 1,000 mcg IM Q30D 10/24/14 [History Last Taken Unknown] hydrocodone-acetaminophen 1 tab PO Q6H PRN PRN 10/24/14 [History Last Taken 03/05/21 19:57] isosorbide mononitrate 60 mg PO DAILY 10/24/14 [History Last Taken 03/05/21] duloxetine 40 mg PO DAILY 10/13/19 [History Last Taken 03/05/21] hydrocortisone 1 applic TOPICAL BID PRN PRN 10/13/19 [History Last Taken Unknown] nitroglycerin 0.4 mg SL Q5M PRN 10/13/19 [History Last Taken Unknown] omeprazole 40 mg PO DAILY 10/13/19 [History Last Taken 03/05/21] pyridoxine (vitamin B6) 100 mg PO DAILY 10/13/19 [History Last Taken 03/05/21] irbesartan [Avapro] 300 mg PO DAILY 03/05/21 [History Last Taken Unknown] labetalol 300 mg PO BID 03/05/21 [History Last Taken Unknown] terazosin [Hytrin] 10 mg PO QHS 03/05/21 [History Last Taken Unknown] Allergy/AdvReac Type Severity Reaction Status Date / Time GREG Inhibitors AdvReac Unknown Verified 03/05/21 16:12 carvedilol [From Coreg] AdvReac Unknown Verified 03/05/21 16:12 nifedipine [From Procardia] AdvReac Unknown Verified 03/05/21 16:12 simvastatin [From Zocor] AdvReac Unknown Verified 03/05/21 16:12 spironolactone AdvReac Unknown Verified 03/05/21 16:12 Social History (Updated 03/05/21 @ 18:[address] Zeyad Camejo MD) household members: family Smoking Status: Never smoker substance use type: does not use ROS Constitutional Constitutional: Denies chills or fatigue Eyes Eyes: Denies blurry vision ENT HEENT: Denies abnormal hearing Cardiovascular Cardiovascular: Reports edema and orthopnea; Denies chest pain Respiratory/Chest Respiratory/Chest: Reports shortness of breath at rest; Denies cough Gastrointestinal Gastrointestinal: Denies abdominal pain Genitourinary Genitourinary: Denies dysuria Musculoskeletal Musculoskeletal: Denies back pain Integumentary Integumentary: Denies dry skin Neurologic Neurologic: Denies abnormal gait Psychiatric Psychiatric: Denies anxiety Vital Signs Vital Signs Vital Signs: 03/05/21 16:12 03/05/21 19:13 03/05/21 19:15 Temperature 95.6 F L Temperature Source Temporal Pulse Rate 64 80 80 Respiratory Rate 18 28 H Respiratory Effort Respiratory Depth Respiratory Pattern Blood Pressure 212/62 H 223/79 H 223/79 H Blood Pressure Mean 112 127 Pulse Ox 97 85 Oxygen Delivery Method Room Air Room Air Oxygen Flow Rate (L/min) 2 03/05/21 19:19 03/05/21 19:43 Temperature Temperature Source Pulse Rate 80 Respiratory Rate 26 H Respiratory Effort Labored Respiratory Depth Normal Respiratory Pattern Tachypnea Blood Pressure 211/94 H Blood Pressure Mean 133 Pulse Ox 95 Oxygen Delivery Method Nasal Cannula Nasal Cannula Oxygen Flow Rate (L/min) 2 2 Weight Weight: 201 lb Body Mass Index (BMI) 36.7 Physical Exam Const oriented x3 General Appearance: cooperative HEENT normocephalic and head/scalp atraumatic Eyes PERRL and EOMs intact bilaterally Neck supple Lymph Lymphatic: no lymphadenopathy noted Resp Auscultation: rales bilateral Cardio regular rate, regular rhythm, S1 normal heart sound and S2 normal heart sound GI normal to inspection, nondistended, normoactive bowel sounds Extremity General Extremity: edema bilateral (3+) Skin Rashes: No no rashes Neuro CN's II-XII intact bilaterally Psych affect normal Results Lab / Micro Data Result Diagrams: 03/05/21 16:50 03/05/21 16:50 Labs: Laboratory Results - last 24 hr 03/05/21 16:50: WBC 6.1, RBC 3.44 L, Hgb 10.6 L, Hct 33.2 L, MCV 96.5, MCH 30.8, MCHC 31.9 L, RDW Std Deviation 56.7 H, RDW Coeff of Yolanda 15.9 H, Plt Count 233, MPV 9.6, Immature Gran % (Auto) 0.500, Neut % (Auto) 77.6 H, Lymph % (Auto) 12.2 L, Hart[place] % (Auto) 7.7, Eos % (Auto) 1.8, Baso % (Auto) 0.2, Absolute Neuts (auto) 4.7, Absolute Lymphs (auto) 0.74 L, Nucleated RBC % 0 03/05/21 16:50: Sodium 141, Potassium 4.2, Chloride 108 H, Carbon Dioxide 29.0, Anion Gap 4 L, BUN 18, Creatinine 1.12 H, Estim Creat Clear Calc 29.57, Est GFR (MDRD) Af Amer 60, Est GFR (MDRD) Non-Af 49 L, BUN/Creatinine Ratio 16.1, Glucose 132 H, Calcium 9.4, Troponin I High Sens 12 03/05/21 16:50: B-Natriuretic Peptide 922.2 H Radiology Impression Chest X-Ray 03/05/21 16:24 IMPRESSION: There is a left pleural effusion. Left lower lobe infiltrate. Electronically Signed: Ramiro Spangler MD at 20:03 EST , Service support , Assessment & Plan Assessment/Plan (1) History of hypertension: (2) History of cardiac murmur: (3) History of carotid stenosis: (4) Acute on chronic renal failure: (5) Hyperkalemia: (6) New onset of congestive heart failure: (7) Accelerated essential hypertension: (8) Mild renal insufficiency: PLAN: 1 acute congestive heart failure?admit patient to the progressive care unit, order echocardiogram for a.m., repeat CBC BMP, BNP in the morning, Lasix 20 mg IV nightly, oxygen per protocol 2. Hypertensive urgency?continue home antihypertensive therapy and will add a as needed hydralazine order 3. Hyperkalemia?repeat BMP in the morning and address as appropriately 4. DVT prophylaxis?low molecular weight heparin Charges/Coding Visit Charges Inpatient E&M: 21776 Init Hosp L3
--- NOTE | 2021-03-05 20:29 | ECHOD_ITS ---
Reason For Study: CHF Procedure This was a 2D Doppler, Color Flow transthoracic echocardiogram. The exam was of adequate technical quality. Exam performed portable in ICU/CCU. Left Ventricle Normal LV size. Left ventricular systolic function is normal. The estimated ejection fraction is 60 %. No regional wall motion abnormalities noted. Right Ventricle Normal RV size. Normal systolic function. Atria The left atrium is mildly enlarged. Normal right atrium. No doppler evidence for ASD. Mitral Valve There is mild to moderate mitral annular calcification. Mild focal mitral valve calcification of the anterior leaflet. The mitral valve chordae are thickened and/or calcified. The mitral papillary muscle appears thickened and/or calcified. Mild mitral valve stenosis. Mild-Moderate (1-2+) eccentric mitral valve insufficiency. Tricuspid Valve Normal tricuspid valve. Trivial tricuspid valve insufficiency. Right ventricular systolic pressure estimated to be 55 mmHg. Aortic Valve Trisinus/trileaflet aortic valve. Mild diffuse aortic valve calcification. Mild aortic stenosis. Mild (1+) aortic valve insufficiency. Pulmonic Valve The pulmonic valve is not well visualized. Great Vessels Normal sized aortic root. Pericardium/Pleural Trivial pericardial effusion. There are no echocardiographic indications of cardiac tamponade. MMode/2D Measurements & Calculations LVIDd: 5.0 cm IVSd: 0.92 cm LVOT diam: 1.8 cm LVIDs: 3.3 cm LVPWd: 0.95 cm LVOT area: 2.6 cm2 RVDd: 2.9 cm FS: 34.4 % Ao root diam: 3.4 cm LAV(MOD-bp): 88.0 ml LVAd ap4: 28.7 cm2 LAV(MOD-bp) Indexed: 45.9 ml/m2 LVLd ap4: 8.3 cm LAV(MOD-sp2): 88.8 ml EDV(MOD-sp4): 81.3 ml LAV(MOD-sp4): 85.2 ml EDV(sp4-el): 84.3 ml LVAs ap4: 17.5 cm2 LVLs ap4: 7.5 cm ESV(MOD-sp4): 37.1 ml ESV(sp4-el): 34.8 ml EF(MOD-sp4): 54.3 % EF(sp4-el): 58.8 % LVAd ap2: 27.4 cm2 SV(MOD-sp4): 44.2 ml SV(MOD-sp2): 50.6 ml LVLd ap2: 8.6 cm EDV(MOD-sp2): 76.2 ml EDV(sp2-el): 74.5 ml LVAs ap2: 14.7 cm2 LVLs ap2: 7.2 cm ESV(MOD-sp2): 25.6 ml ESV(sp2-el): 25.4 ml EF(MOD-sp2): 66.4 % SV(sp4-el): 49.5 ml Aortic Valve Planimetry: 1.4 cm2 LA A4 area: 27.3 cm2 LA dimension(2D): 4.5 cm RA A4 area: 13.9 cm2 Doppler Measurements & Calculations MV E max oswaldo: 136.7 cm/sec Lat Peak E' Oswaldo: 5.7 cm/sec Med Peak E' Oswaldo: 4.5 cm/sec MV A max oswaldo: 65.0 cm/sec E/E' lat: 24.1 E/E' med: 30.3 MV E/A: 2.1 MV V2 max: 126.8 cm/sec Ao V2 max: 204.4 cm/sec AI max oswaldo: 410.8 cm/sec MV max P.4 mmHg Ao max P.8 mmHg AI max P.6 mmHg MV V2 mean: 64.1 cm/sec Ao V2 mean: 149.5 cm/sec AI dec slope: 244.7 cm/sec2 MV mean P.9 mmHg Ao mean P.8 mmHg AI P1/2t: 491.7 msec MV V2 VTI: 41.6 cm Ao V2 VTI: 55.4 cm MVA(VTI): 1.9 cm2 [place](I,D): 1.4 cm2 [place](V,D): 1.3 cm2 LV V1 max: 105.2 cm/sec SV(LVOT): 80.4 ml TR max oswaldo: 360.6 cm/sec LV V1 max P.4 mmHg TR max P.0 mmHg LV V1 mean P.9 mmHg LV V1 mean: 82.3 cm/sec LV V1 VTI: 31.0 cm MV P1/2t-pr_phl: 176.3 msec ECHO/Echo Complete Interpretation Summary Left ventricular systolic function is normal. The estimated ejection fraction is 60 %. The left atrium is mildly enlarged. There is mild to moderate mitral annular calcification. Mild focal mitral valve calcification of the anterior leaflet. The mitral valve chordae are thickened and/or calcified. The mitral papillary muscle appears thickened and/or calcified. Mild mitral valve stenosis. Mild-Moderate (1-2+) eccentric mitral valve insufficiency. Trivial tricuspid valve insufficiency. Mild diffuse aortic valve calcification. Mild aortic stenosis. Mild (1+) aortic valve insufficiency. Trivial pericardial effusion. There are no echocardiographic indications of cardiac tamponade. Right ventricular systolic pressure estimated to be 55 mmHg. Transmitral diastolic flow velocities suggest diastolic dysfunction (pseudonorm al pattern). Ordering Physician: Jose Cortes Referring Physician: FLORES SCOTT Performed By: Carla Arthur, RDCS, RVT
[2021-03-05] MEDS: hydrALAZINE 20 MG/ML Vial 10 MG IV (21:08)
[2021-03-06] VITALS (8 sets, daily range): BP systolic 135–164; BP diastolic 42–60; PULSE 57–63; RESP 18–19; TEMP 36.6–36.8; O2SAT 96–97
[2021-03-06] MEDS: Doxazosin 4 MG Tablet 8 MG PO ×2 (01:21→20:08)
[2021-03-06] MEDS: Labetalol 100 MG Tablet 300 MG PO ×3 (01:22→20:08)
[2021-03-06] MEDS: Atorvastatin Calcium 40 MG Tablet PO ×2 (01:22→20:09)
--- NOTE | 2021-03-06 03:01 | PCS.PANDOC ---
PANDEMIC DOCUMENTATION INITIATED: Date: 03/06/21 Time: 2291
[2021-03-06 06:03] LABS: Absolute Lymphocyte Count 0.92 X10^3/uL (0.83-4.51); Absolute Neutrophil Count 4.2 X10^3/uL (2.0-7.7); Basophil# 0.03 X10^3/uL; Basophil% 0.5 % (0-1); Eosinophil# 0.12 X10^3/uL; Hematocrit 31.1 % (37-47); Hemoglobin 9.9 g/dL (12.0-15.0); Lymphocyte # 0.92 X10^3/ul (0.83-4.51); Lymphocyte % 15.6 % (19-41); Mean Corp Hgb Conc 31.8 g/dL (32-36); Mean Corpuscular Hgb 30.4 pg (27.0-32.0); Mean Corpuscular Volume 95.4 fL (81-99); Mean Platelet Vol. 10.2 fl (6.2-12.0); Monocyte# 0.62 X10^3/uL; Monocyte% 10.5 % (0-10); NRBC Flagged by Analyzer 0 % (0-5); Neutrophil # 4.17 X10^3/uL (2.7-7.7); Neutrophil % 71.1 % (47-70); Platelet Count 229 K/mm3 (150-450); RBC Distribution Width CV 15.7 % (11.6-14.6); RBC Distribution Width SD 54.9 fl (35.1-43.9); Red Blood Count 3.26 M/mm3 (4.2-5.4); White Blood Count 5.9 K/mm3 (4.4-11.0)
[2021-03-06 06:31] LABS: Anion Gap 2 (5-15); BUN 16 mg/dL (7-18); Calcium,Total 9.4 mg/dL (8.5-10.1); Chloride 105 mmol/L (98-107); EST Glomerular Filtration Rate 56 mL/min (>60); Est Glom Filt Rate - Afr Amer 68 mL/min (>60); Estimated Creatinine Clearance 33.12 ml/min; Glucose 106 mg/dL (74-106); Potassium 3.7 mmol/L (3.5-5.1); Sodium Level 140 mmol/L (136-145)
--- NOTE | 2021-03-06 09:25 | CASEMGMT ---
MEAGAN PAIGE Face to Face with patient for initial transition planning/care coordination assessment. RN GRECIA introduced self and role at [facility]. Patient lying in bed, alert and oriented. Patient willing to participate in assessment and is able to answer all questions appropriately. Care providers, pharmacy, and demographics verified. Patient wishes to discharge home, denies need for home health at this time. Patient states she has no further needs or concerns at this time. CM to follow for discharge planning needs that may arise. PCP: Gerald Specialists: [employer] scullion Preferred Pharmacy: [facility] Insurance: [email or web address] Prescription Benefit: yes Living Will/HPOA: yes, Kika Hotte HPOA LNOK: daughter Living Arrangements: Patient lives alone in a single story home with no steps to enter. Patient states she is independent at home. Patient states that daughter is supportive and checks on her frequently. Transportation: daughter DME/HHC: Patient states she has built in shower chair, cane, rollator, bed railing, and bipap at home. Patient has no preferences for DME. Patient states he has previously had [facility]. Disposition Plan: Patient to discharge home with family support and follow-up plans in place. Jess ARMAS, RN, CM
[2021-03-06] MEDS: Pantoprazole Sodium 40 MG Tablet PO (09:51)
[2021-03-06] MEDS: DULoxetine Hcl 20 MG Capsule 40 MG PO (09:51)
[2021-03-06] MEDS: Enoxaparin 40 MG/0.4 ML Syringe SC (09:52)
[2021-03-06] MEDS: Aspirin 81 MG TAB.CHEW PO (09:52)
[2021-03-06] MEDS: Losartan Potassium 100 MG Tablet PO (09:52)
[2021-03-06] MEDS: Isosorbide Mononitrate 60 MG Tablet PO (09:52)
[2021-03-06] MEDS: Allopurinol 100 MG Tablet 200 MG PO (09:52)
--- NOTE | 2021-03-06 11:20 | PN.HOSP_ITS ---
Subjective Subjective Patient notes that she is about 65% better compared to yesterday. The patient was feeling short of breath on room air at the time of evaluation She still feels short of breath with any activity but not at rest She has a persistent cough which is nonproductive. Denies any orthopnea or PND. She notes that she does her BiPAP routinely at home for her sleep apnea. Objective Data Objective Data Patient had an 89% saturation on room air and was placed back on oxygen during the evaluation was at 96%. Vital Signs: Vital Signs Temp Pulse Resp BP Pulse Ox 98 F 60 18 164/48 H 96 03/06/21 10:00 03/06/21 10:00 03/06/21 10:00 03/06/21 10:00 03/06/21 10:00 Oxygen Flow Rate (L/min) 2 Oxygen Delivery Method Room Air Weight: 201 lb Body Mass Index (BMI) 36.7 Intake & Output: Intake and Output for Last 24 Hours 03/04/21 03/05/21 03/06/21 23:59 23:59 23:59 Intake Total 120 / 120 Output Total 500 / 500 700 / 700 Balance -380 / -380 -700 / -700 Lab / Micro Data Result Diagrams: 03/06/21 05:25 03/06/21 05:25 Labs: Laboratory Results - last 24 hr 03/06/21 05:25: Sodium 140, Potassium 3.7, Chloride 105, Carbon Dioxide 33.0 H, Anion Gap 2 L, BUN 16, Creatinine 1.00, Estim Creat Clear Calc 33.12, Est GFR (MDRD) Af Amer 68, Est GFR (MDRD) Non-Af 56 L, BUN/Creatinine Ratio 16.0, Glucose 106, Calcium 9.4 03/06/21 05:25: WBC 5.9, RBC 3.26 L, Hgb 9.9 L, Hct 31.1 L, MCV 95.4, MCH 30.4, MCHC 31.8 L, RDW Std Deviation 54.9 H, RDW Coeff of Yolanda 15.7 H, Plt Count 229, MPV 10.2, Immature Gran % (Auto) 0.300, Neut % (Auto) 71.1 H, Lymph % (Auto) 15.6 L, Labette % (Auto) 10.5 H, Eos % (Auto) 2.0, Baso % (Auto) 0.5, Absolute Neuts (auto) 4.2, Absolute Lymphs (auto) 0.92, Nucleated RBC % 0 Radiography Diagnostic Testing: Radiology Impression Chest X-Ray 03/05/21 16:24 IMPRESSION: There is a left pleural effusion. Left lower lobe infiltrate. Electronically Signed: Ramiro Spangler MD at 20:03 EST , Service support , Physical Exam Narrative Obese, lying in bed sleeping but was awakened to light touch. She had increased neck circumference but had a supple with no JVD She had decreased breath sounds bilaterally with fine crackles the bases. Heart was regular with a controlled rate and a 2/6 systolic murmur at the lower left sternal border. She had 1+ pitting edema in the pretibial areas bilaterally. Abdomen was obese but soft and nontender with normal bowel sounds. After being awakened, she was oriented x3 She had a normal affect and mood. Assessment & Plan Assessment/Plan (1) New onset of congestive heart failure: (2) History of hypertension: (3) Accelerated essential hypertension: (4) Mild renal insufficiency: (5) Obesity (BMI 30-39.9): (6) Sleep apnea: (7) History of cardiac murmur: PLAN: 85-year-old with new onset congestive heart failure (unknown type as yet), complicated by uncontrolled systolic hypertension, stage IIIa CKD with chronic anemia, obesity with treated sleep apnea. - Patient has echocardiogram scheduled today to assess the CHF. - I will provide her Lasix 40 mg daily by mouth ongoing dyspnea and hypoxemia. - The patient's hyperkalemia resolved with supportive care including IV Lasix. - She will continue with supplemental oxygen as she was hypoxemic and short of breath on room air. - Her systolic blood pressure continues to be elevated but is down 20% from presentation. - Plan to continue to monitor her blood pressure with supportive care and consider medication adjustment in the next 24 hours. - I will follow her BMP with her ongoing Lasix use. - I will repeat her hemoglobin in the morning-she had no acute change compared to presentation. - She does report routine BiPAP compliance for her sleep apnea patient setting. - We reviewed the benefits of weight loss in the context of her multiple comorbidities. - We talked about her lack of meal structure and her tendency to pick at foods rather than prepare foods. - The patient is on Lovenox for DVT prophylaxis. - She is a full code.
[2021-03-06] MEDS: Furosemide 40 MG Tablet PO (12:31)
[2021-03-07] VITALS (8 sets, daily range): BP systolic 152–197; BP diastolic 46–68; PULSE 57–72; RESP 16–18; TEMP 36.6–36.8; O2SAT 86–96
[2021-03-07 05:25] LABS: Absolute Lymphocyte Count 1.08 X10^3/uL (0.83-4.51); Basophil# 0.02 X10^3/uL; Basophil% 0.4 % (0-1); Eosinophil# 0.08 X10^3/uL; Eosinophils% 1.7 % (0-5); Hematocrit 32.7 % (37-47); Hemoglobin 10.7 g/dL (12.0-15.0); Lymphocyte # 1.08 X10^3/ul (0.83-4.51); Lymphocyte % 23.1 % (19-41); Mean Corp Hgb Conc 32.7 g/dL (32-36); Mean Corpuscular Hgb 30.9 pg (27.0-32.0); Mean Corpuscular Volume 94.5 fL (81-99); Mean Platelet Vol. 10.1 fl (6.2-12.0); Monocyte% 10.7 % (0-10); NRBC Flagged by Analyzer 0 % (0-5); Neutrophil # 2.98 X10^3/uL (2.7-7.7); Neutrophil % 63.9 % (47-70); Platelet Count 235 K/mm3 (150-450); RBC Distribution Width CV 15.7 % (11.6-14.6); RBC Distribution Width SD 54.4 fl (35.1-43.9); Red Blood Count 3.46 M/mm3 (4.2-5.4); White Blood Count 4.7 K/mm3 (4.4-11.0)
[2021-03-07 05:48] LABS: Anion Gap 7 (5-15); BUN 22 mg/dL (7-18); BUN/Creat Ratio 16.5 RATIO (10-20); Calcium,Total 8.9 mg/dL (8.5-10.1); Chloride 101 mmol/L (98-107); Creatinine, Serum 1.33 mg/dL (0.55-1.02); EST Glomerular Filtration Rate 40 mL/min (>60); Est Glom Filt Rate - Afr Amer 49 mL/min (>60); Glucose 99 mg/dL (74-106); Potassium 3.5 mmol/L (3.5-5.1); Sodium Level 138 mmol/L (136-145)
--- NOTE | 2021-03-07 08:36 | PCM.PN.HOSP ---
Objective Data Objective Data Vital Signs: Vital Signs Temp Pulse Resp BP Pulse Ox 98.2 F 61 16 197/55 H 94 03/07/21 05:30 03/07/21 07:00 03/07/21 05:30 03/07/21 05:30 03/07/21 05:30 Oxygen Flow Rate (L/min) 2 Oxygen Delivery Method CPAP Weight: 87.2 kg Body Mass Index (BMI) 36.7 Intake & Output: Intake and Output for Last 24 Hours 03/05/21 03/06/21 03/07/21 23:59 23:59 23:59 Intake Total 120 / 120 Output Total 500 / 500 1000 / 1400 400 / 400 Balance -380 / -380 -1000 / -1400 -400 / -400 Lab / Micro Data Result Diagrams: 03/07/21 05:14 03/07/21 05:14 Labs: Laboratory Results - last 24 hr 03/07/21 05:14: WBC 4.7, RBC 3.46 L, Hgb 10.7 L, Hct 32.7 L, MCV 94.5, MCH 30.9, MCHC 32.7, RDW Std Deviation 54.4 H, RDW Coeff of Yolanda 15.7 H, Plt Count 235, MPV 10.1, Immature Gran % (Auto) 0.200, Neut % (Auto) 63.9, Lymph % (Auto) 23.1, Runnels % (Auto) 10.7 H, Eos % (Auto) 1.7, Baso % (Auto) 0.4, Absolute Neuts (auto) 3.0, Absolute Lymphs (auto) 1.08, Nucleated RBC % 0 03/07/21 05:14: Sodium 138, Potassium 3.5, Chloride 101, Carbon Dioxide 30.0, Anion Gap 7, BUN 22 H, Creatinine 1.33 H, Estim Creat Clear Calc 24.90, Est GFR (MDRD) Af Amer 49 L, Est GFR (MDRD) Non-Af 40 L, BUN/Creatinine Ratio 16.5, Glucose 99, Calcium 8.9 Radiography Diagnostic Testing: Radiology Impression Echocardiogram 03/05/21 20:29 Interpretation Summary Left ventricular systolic function is normal. The estimated ejection fraction is 60 %. The left atrium is mildly enlarged. There is mild to moderate mitral annular calcification. Mild focal mitral valve calcification of the anterior leaflet. The mitral valve chordae are thickened and/or calcified. The mitral papillary muscle appears thickened and/or calcified. Mild mitral valve stenosis. Mild-Moderate (1-2+) eccentric mitral valve insufficiency. Trivial tricuspid valve insufficiency. Mild diffuse aortic valve calcification. Mild aortic stenosis. Mild (1+) aortic valve insufficiency. Trivial pericardial effusion. There are no echocardiographic indications of cardiac tamponade. Right ventricular systolic pressure estimated to be 55 mmHg. Transmitral diastolic flow velocities suggest diastolic dysfunction (pseudonormal pattern). Ordering Physician: Jose Cortes Referring Physician: FLORES SCOTT Performed By: Carla Arthur RDCS, RVT Assessment & Plan Assessment/Plan (1) New onset of congestive heart failure: (2) History of hypertension: (3) Accelerated essential hypertension: (4) Mild renal insufficiency: (5) Obesity (BMI 30-39.9): (6) Sleep apnea: (7) History of cardiac murmur: PLAN: 85-year-old with new onset congestive heart failure (unknown type as yet), complicated by uncontrolled systolic hypertension, stage IIIa CKD with chronic anemia, obesity with treated sleep apnea. - Patient has echocardiogram scheduled today to assess the CHF. - I will provide her Lasix 40 mg daily by mouth ongoing dyspnea and hypoxemia. - The patient's hyperkalemia resolved with supportive care including IV Lasix. - She will continue with supplemental oxygen as she was hypoxemic and short of breath on room air. - Her systolic blood pressure continues to be elevated but is down 20% from presentation. - Plan to continue to monitor her blood pressure with supportive care and consider medication adjustment in the next 24 hours. - I will follow her BMP with her ongoing Lasix use. - I will repeat her hemoglobin in the morning-she had no acute change compared to presentation. - She does report routine BiPAP compliance for her sleep apnea patient setting. - We reviewed the benefits of weight loss in the context of her multiple comorbidities. - We talked about her lack of meal structure and her tendency to pick at foods rather than prepare foods. - The patient is on Lovenox for DVT prophylaxis. - She is a full code.
[2021-03-07] MEDS: Furosemide 40 MG Tablet PO (09:02)
[2021-03-07] MEDS: Isosorbide Mononitrate 60 MG Tablet PO (09:02)
[2021-03-07] MEDS: Pantoprazole Sodium 40 MG Tablet PO (09:02)
[2021-03-07] MEDS: Allopurinol 100 MG Tablet 200 MG PO (09:02)
[2021-03-07] MEDS: Labetalol 100 MG Tablet 300 MG PO (09:02)
[2021-03-07] MEDS: Losartan Potassium 100 MG Tablet PO (09:03)
[2021-03-07] MEDS: Enoxaparin 40 MG/0.4 ML Syringe SC (09:03)
[2021-03-07] MEDS: DULoxetine Hcl 20 MG Capsule 40 MG PO (09:03)
[2021-03-07] MEDS: Aspirin 81 MG TAB.CHEW PO (09:03)
--- NOTE | 2021-03-07 11:48 | DS.PCM_ITS ---
Providers Date of Admission: 03/05/21 Primary Care Physician: Dr. Davey Scott MD Reason For Visit: CONGESTSIVE HEART FAILURE Diagnosis Discharge Diagnosis (1) New onset of congestive heart failure: Status: Acute Code(s): I50.9 - Heart failure, unspecified (2) History of hypertension: Status: Chronic Code(s): Z86.79 - Personal history of other diseases of the circulatory system (3) Accelerated essential hypertension: Status: Acute Code(s): I10 - Essential (primary) hypertension (4) Mild renal insufficiency: Status: Acute Code(s): N28.9 - Disorder of kidney and ureter, unspecified (5) Obesity (BMI 30-39.9): Status: Acute Code(s): E66.9 - Obesity, unspecified (6) Sleep apnea: Status: Acute Code(s): G47.30 - Sleep apnea, unspecified (7) History of cardiac murmur: Status: Chronic Code(s): Z86.79 - Personal history of other diseases of the circulatory system Medications at Discharge Home Medications allopurinol 200 mg PO DAILY 10/24/14 aspirin 81 mg PO DAILY@0800 10/24/14 atorvastatin 40 mg PO QHS 10/24/14 cyanocobalamin (vitamin B-12) 1,000 mcg IM Q30D 10/24/14 hydrocodone-acetaminophen 1 tab PO Q6H PRN PRN 10/24/14 isosorbide mononitrate 60 mg PO DAILY 10/24/14 duloxetine 40 mg PO DAILY 10/13/19 hydrocortisone 1 applic TOPICAL BID PRN PRN 10/13/19 nitroglycerin 0.4 mg SL Q5M PRN 10/13/19 omeprazole 40 mg PO DAILY 10/13/19 pyridoxine (vitamin B6) 100 mg PO DAILY 10/13/19 irbesartan [Avapro] 300 mg PO DAILY 03/05/21 labetalol 300 mg PO BID 03/05/21 terazosin 10 mg PO QHS 03/05/21 furosemide 40 mg PO DAILY #60 tab 03/07/21 potassium chloride 20 meq PO DAILY #20 tab 03/07/21 Hospital Course Summary of Care Provided Minutes Spent on Discharge: 35 Hospital Course: Patient is an 85-year-old lady who presented with progressive shortness of breath 1. congestive heart failure with preserved ejection fraction ?Patient admitted to monitored bed managed with strict input and output, fluid restriction as well as IV Lasix condition did improve. Echo obtained during patient hospital stay revealed EF of 50%. 2. Hypertension - Blood pressure controlled, home medications continued with dose adjustment as needed 3. Class II obesity with BMI of 35.2 ?Weight loss advised 4. Chronic kidney disease stage IIIa 5. Obstructive sleep apnea Physical Exam Narrative GENERAL: cooperative HEENT: Atraumatic; EYES; Anicteric, Normal Conjunctiva NECK; supple, normal thyroid, RESPIRATORY: Diminished to auscultation CARDIOVASCULAR: Regular S1 S2, GI: soft, normoactive bowel sounds, NEURO: Awake; no lateralizing signs. SKIN: No Rash PSYCH; Flat affect Weight / BMI Weight Weight: 87.2 kg Body Mass Index (BMI) 36.7 ABG / Lab / Microbiology Data Result Diagrams: 03/07/21 05:14 03/07/21 05:14 Laboratory: Laboratory Results - last 24 hr 03/07/21 05:14: WBC 4.7, RBC 3.46 L, Hgb 10.7 L, Hct 32.7 L, MCV 94.5, MCH 30.9, MCHC 32.7, RDW Std Deviation 54.4 H, RDW Coeff of Yolanda 15.7 H, Plt Count 235, MPV 10.1, Immature Gran % (Auto) 0.200, Neut % (Auto) 63.9, Lymph % (Auto) 23.1, Roberts % (Auto) 10.7 H, Eos % (Auto) 1.7, Baso % (Auto) 0.4, Absolute Neuts (auto) 3.0, Absolute Lymphs (auto) 1.08, Nucleated RBC % 0 03/07/21 05:14: Sodium 138, Potassium 3.5, Chloride 101, Carbon Dioxide 30.0, Anion Gap 7, BUN 22 H, Creatinine 1.33 H, Estim Creat Clear Calc 24.90, Est GFR (MDRD) Af Amer 49 L, Est GFR (MDRD) Non-Af 40 L, BUN/Creatinine Ratio 16.5, Glucose 99, Calcium 8.9 Radiography Diagnostic Testing: Radiology Impression Echocardiogram 03/05/21 20:29 Interpretation Summary Left ventricular systolic function is normal. The estimated ejection fraction is 60 %. The left atrium is mildly enlarged. There is mild to moderate mitral annular calcification. Mild focal mitral valve calcification of the anterior leaflet. The mitral valve chordae are thickened and/or calcified. The mitral papillary muscle appears thickened and/or calcified. Mild mitral valve stenosis. Mild-Moderate (1-2+) eccentric mitral valve insufficiency. Trivial tricuspid valve insufficiency. Mild diffuse aortic valve calcification. Mild aortic stenosis. Mild (1+) aortic valve insufficiency. Trivial pericardial effusion. There are no echocardiographic indications of cardiac tamponade. Right ventricular systolic pressure estimated to be 55 mmHg. Transmitral diastolic flow velocities suggest diastolic dysfunction (pseudonormal pattern). Ordering Physician: Jose Cortes Referring Physician: DAVEY SCOTT Performed By: Carla Arthur, RDCS, RVT D/C Instructions Discharge Diet: 8 Cup Fluid Restriction and 2000 mg Sodium Diet Discharge Activity: Return to Normal Activity Call your doctor if you observe: Fever of 101 or Higher, Shortness of breath, Fainting spells and Chest pain Meaningful Use Info Meaningful Use Diagnoses (Choose all that apply): CHF CHF GREG/ARB ordered at discharge?: Yes Documented LVEF (%): 60 Discharge Plan Admission Admit Date/Time: 03/05/21 20:25 Attending Provider: Franko Rose Primary Care Provider: Davey Scott Discharge Orders/Prescriptions Prescriptions: New furosemide 40 mg Tablet 40 mg PO DAILY Qty: 60 RF: 0 potassium chloride 20 mEq tablet extended release 20 meq PO DAILY Qty: 20 RF: 0 Continued atorvastatin 40 MG tablet 40 mg PO QHS RF: 0 hydrocodone-acetaminophen 1 TABLET tablet 1 tab PO Q6H PRN PRN (Reason: Pain) RF: 0 isosorbide mononitrate 30 MG tablet 60 mg PO DAILY RF: 0 allopurinol 100 MG tablet 200 mg PO DAILY RF: 0 cyanocobalamin (vitamin B-12) 1,000 MCG/ML solution 1,000 mcg IM Q30D RF: 0 aspirin 81 MG tablet,chewable 81 mg PO DAILY@0800 RF: 0 omeprazole 40 MG capsule,delayed release(DR/EC) 40 mg PO DAILY RF: 0 nitroglycerin 0.4 MG tablet, sublingual 0.4 mg SL Q5M PRN (Reason: CHEST PAIN) RF: 0 hydrocortisone 1 APPLIC cream 1 applic topical BID PRN PRN (Reason: Hemorrhoids) RF: 0 pyridoxine (vitamin B6) 100 MG tablet 100 mg PO DAILY RF: 0 duloxetine 20 MG capsule 40 mg PO DAILY RF: 0 labetalol 300 mg Tablet 300 mg PO BID RF: 0 terazosin 10 mg Capsule 10 mg PO QHS RF: 0 irbesartan [Avapro] 300 mg Tablet 300 mg PO DAILY RF: 0 Referrals / Follow Up: Davey Scott MD [Primary Care Provider] - In 1 Week Disposition Disposition (needs filled in before D/C Order can be placed): Home, Self Care Charges/Coding Visit Charges Inpatient E&M: 48024 Disch Hosp
--- NOTE | 2021-03-07 12:13 | CASEMGMT ---
Per Wallace RN, pt qualifies for 2L home oxygen with exertion. Pt stated no preference for DME company and referral faxed to [facility] [place]. to follow. Elsa RHODES CM
--- NOTE | 2021-03-07 14:45 | PHA.DC.MR ---
Pharmacy Service has performed discharge medication reconciliation for this patient. The patient's discharge medication list was reviewed for discrepancies and discrepancies were resolved. Home Medications allopurinol 200 mg PO DAILY 10/24/14 aspirin 81 mg PO DAILY@0800 10/24/14 atorvastatin 40 mg PO QHS 10/24/14 cyanocobalamin (vitamin B-12) 1,000 mcg IM Q30D 10/24/14 hydrocodone-acetaminophen 1 tab PO Q6H PRN PRN 10/24/14 isosorbide mononitrate 60 mg PO DAILY 10/24/14 duloxetine 40 mg PO DAILY 10/13/19 hydrocortisone 1 applic TOPICAL BID PRN PRN 10/13/19 nitroglycerin 0.4 mg SL Q5M PRN 10/13/19 omeprazole 40 mg PO DAILY 10/13/19 pyridoxine (vitamin B6) 100 mg PO DAILY 10/13/19 irbesartan [Avapro] 300 mg PO DAILY 03/05/21 labetalol 300 mg PO BID 03/05/21 terazosin 10 mg PO QHS 03/05/21 furosemide 40 mg PO DAILY #60 tab 03/07/21
== END 2021-03-07 14:34 | disposition home or self-care (01) | DRG 291 ==
LOC: ED 20:12 → PCU 20:38
PROVIDERS: Internal Medicine; Admitting Provider Family Medicine; Emergency Provider Emergency Medicine; PCP Internal Medicine; Visit Provider Internal Medicine
DX: I13.0 Hypertensive heart and chronic kidney disease with heart failure and stage 1 through stage 4 chronic kidney disease, or unspecified chronic kidney disease (principal); I50.33 Acute on chronic diastolic (congestive) heart failure; E66.9 Obesity, unspecified; N18.31 Chronic kidney disease, stage 3a; I16.0 Hypertensive urgency; G47.33 Obstructive sleep apnea (adult) (pediatric); E87.5 Hyperkalemia; E78.5 Hyperlipidemia, unspecified; N28.9 Disorder of kidney and ureter, unspecified; Z68.35 Body mass index [BMI] 35.0-35.9, adult; Z79.82 Long term (current) use of aspirin; R09.02 Hypoxemia; Z79.899 Other long term (current) drug therapy
CPT/HCPCS: 36415; 71045; 80048; 83880; 84484; 85025; 93005; 93306; 94760; 97162; 97166; 99284; A4216; J1940

== ENCOUNTER 2021-10-01 19:48 | Inpatient (IN) | payer MEDICARE, OTHER, SELFPAY ==
[2021-10-01 19:49] VITALS: BP 107/41; PULSE 61; RESP 15; TEMP 36.4; O2SAT 98; BMI 34.0
--- NOTE | 2021-10-01 20:26 | CT_ITS ---
EXAMINATION: HELICAL CT OF THE HEAD WITHOUT CONTRAST ENHANCEMENT OF 2126 HOURS ON 10/01/2021 REASON FOR EXAM: 86-year-old female with head trauma. RADIATION DOSAGE (If Supplied By Facility): CTDIvol = ( 44.99 ) mGy, DLP = ( 796.11 ) mGycm TECHNIQUE: Transaxial CT imaging of the brain was performed without administration of intravenous contrast material. Sagittal and coronal reconstructions were obtained and all were demonstrated in osseous and soft tissue algorithms. COMPARISON: No relevant priors. FINDINGS: Mild cortical and cerebellar atrophy. Normal ventricular system without midline shift. No subdural, epidural, or cerebral hematoma, hemorrhage or contusion. No ischemic or hemorrhagic infarct. No intracranial mass lesions from metastatic disease. Normal sella and pituitary. Normal posterior fossa and brainstem. Normal calvarium without linear or depressed skull fractures. Normal paranasal sinuses. CT/Brain/Head without Contrast IMPRESSION: 1. Mild cortical and cerebellar atrophy. 2. No subdural, epidural, or intracerebral hematoma, hemorrhage or contusion. 3. No infarcts or intracranial mass lesions. 4. No other intracranial pathology. 5. Normal calvarium without linear or depressed skull fractures. 6. Normal paranasal sinuses. Electronically Signed: Cordell Resendiz MD at 22:00 EDT ,
--- NOTE | 2021-10-01 20:26 | CT_ITS ---
STUDY: CT CERVICAL SPINE WITHOUT CONTRAST ENHANCEMENT OF 2129 HOURS ON 10/01/2021 REASON FOR EXAM: 86-year-old female with neck trauma. RADIATION DOSAGE (If Supplied By Facility): CTDIvol = ( 27.18 ) mGy, DLP = ( 612.60 ) mGycm TECHNIQUE: High resolution transaxial imaging was performed without contrast material. Sagittal and coronal images were reconstructed. COMPARISON: None FINDINGS: Mild cervical kyphosis that may be indicative of muscle spasm. No vertebral body fractures. 3 mm forward subluxation of C3 with respect to C4. Marked narrowing at the C4-5 and C5-6 intervertebral disc spaces. Moderate narrowing of the C6-7 intervertebral disc space. Moderate osteophytic degenerative changes from C3 through C7. Mild posterior degenerative disc at the C4-5, C5-6, C6-7 levels. The odontoid and spinous processes. Pre-vertebral linear calcifications anterior to the C3-C5 vertebra. CT/Spine Cervical without Contras IMPRESSION: 1. Mild cervical kyphosis and may be indicative of muscle spasm. 2. No vertebral body fractures. 3. Presence of a 3 mm forward subluxation of C3 with respect to C4. 4. Marked narrowing at the C4-C5 and C5-6 intervertebral disc spaces with moderate narrowing of the C6-C7 intervertebral disc space. 5. Moderate osteophytic degenerative changes from C3 through C7. 6. Mild posterior degenerative disks at the C4-5, C5-6, and C6-7 levels. Electronically Signed: Cordell Resendiz MD at 22:19 EDT ,
--- NOTE | 2021-10-01 20:26 | EKG12_ITS ---
Test Reason : DYSRHYTHMIA Blood Pressure : / mmHG Vent. Rate : 060 BPM Atrial Rate : 060 BPM P-R Int : 222 ms QRS Dur : 098 ms QT Int : 434 ms P-R-T Axes : 067 -10 067 degrees QTc Int : 434 ms Sinus rhythm with 1st degree A-V block Low voltage QRS (Limb Leads) Confirmed by ROSANGELA ROA, CISCO ([id number]), scientific editor MARCO ROCHA ([id number]) on 10/03/2021 10:45:48 AM Referred By: JOANN Confirmed By:CISCO ADAMES MD
--- NOTE | 2021-10-01 20:28 | ED.VIS.FALL ---
HPI HPI - Fall History of Present Illness Chief Complaint: Fall Narrative Narrative: 86-year-old female presenting for multiple falls. She states that she fell down some stairs about 2 weeks ago. She describes this is about 15 steps but she was able to get up and walk after that. She states she must of slid because she hit a gate. She is unsure if she hit her head. She is having some neck and back pain. She states it feels better when she lays down and its worse when she tries to change positions. She has multiple bruises on her arms and legs as well as her lower back. Patient's daughter states he is not eating and drinking very much over the last 5 days. She describes nausea without vomiting. She is just not hungry. She denies abdominal pain. She is not have any chest pain or shortness of breath. PFSH [facility] Medical History Anxiety BiPAP (biphasic positive airway pressure) dependence Congestive heart failure (CHF) Depression Hyperlipidemia Hypertension Presence of stent in artery Sleep apnea Home Medications allopurinol 100 mg tablet 200 mg PO DAILY gout 10/24/14 [History Last Taken 03/05/21] aspirin 81 mg chewable tablet 81 mg PO DAILY@0800 heart health 10/24/14 [History Last Taken 03/05/21] atorvastatin 40 mg tablet 40 mg PO QHS cholesterol 10/24/14 [History Last Taken 03/05/21 19:55] cyanocobalamin (vitamin B-12) 1,000 mcg/mL injection solution 1,000 mcg IM Q30D vitamin 10/24/14 [History Last Taken Unknown] hydrocodone-acetaminophen 5-325mg 5mg-325mg 1 tab PO Q6H PRN PRN Pain 10/24/14 [History Last Taken 03/05/21 19:57] isosorbide mononitrate 30 mg tablet,extended release 24 hr 60 mg PO DAILY heart health 10/24/14 [History Last Taken 03/05/21] duloxetine 20 mg capsule,delayed release 40 mg PO DAILY mental health 10/13/19 [History Last Taken 03/05/21] hydrocortisone 2.5 % topical cream 1 applic topical BID PRN PRN Hemorrhoids 10/13/19 [History Last Taken Unknown] nitroglycerin 0.4 mg sublingual tablet 0.4 mg SL Q5M PRN CHEST PAIN 10/13/19 [History Last Taken Unknown] omeprazole 40 mg capsule,delayed release 40 mg PO DAILY reflux 10/13/19 [History Last Taken 03/05/21] pyridoxine (vitamin B6) 100 mg tablet 100 mg PO DAILY vitamin 10/13/19 [History Last Taken 03/05/21] irbesartan 300 mg tablet (Avapro) 300 mg PO DAILY blood pressure 03/05/21 [History Last Taken Unknown] labetalol 300 mg tablet 300 mg PO BID blood pressure 03/05/21 [History Last Taken Unknown] terazosin 10 mg capsule 10 mg PO QHS blood pressure 03/05/21 [History Last Taken Unknown] furosemide 40 mg tablet 40 mg PO DAILY #60 tabs 03/07/21 [Rx Last Taken Unknown] Allergy/AdvReac Type Severity Reaction Status Date / Time GREG Inhibitors AdvReac Unknown Verified 10/01/21 19:49 carvedilol [From Coreg] AdvReac Unknown Verified 10/01/21 19:49 nifedipine [From Procardia] AdvReac Unknown Verified 10/01/21 19:49 simvastatin [From Zocor] AdvReac Unknown Verified 10/01/21 19:49 spironolactone AdvReac Unknown Verified 10/01/21 19:49 Surgical History History of appendectomy History of hysterectomy Social History household members: family Smoking Status: Never smoker substance use type: does not use ROS ROS ED Constitutional Constitutional ED: Denies chills or fever(s) Eyes Eyes: Denies change in vision ENT ENT ED: Denies rhinorrhea or sore throat Cardiovascular Cardiovascular: Denies chest pain or palpitations Respiratory/Chest Respiratory/Chest: Denies cough or dyspnea Gastrointestinal Gastrointestinal: Denies abdominal pain Musculoskeletal Musculoskeletal: Reports neck pain Integumentary Reports other Details: Multiple bruises on extremities and lower back Neurologic Neurologic: Denies headache(s) Psychiatric Psychiatric: Denies anxiety or depression Endocrine Endocrinology: Denies polydipsia or polyphagia EXAM Physical Exam Const Vital Signs: 10/01/21 19:49 10/01/21 20:56 10/01/21 21:05 Temperature 97.6 F L Temperature Source Temporal Pulse Rate 61 Respiratory Rate 15 Respiratory Effort Normal Respiratory Depth Normal Respiratory Pattern Normal Blood Pressure 107/41 L Blood Pressure Mean 63 Pulse Ox 98 100 Oxygen Delivery Method Room Air Room Air Nasal Cannula Oxygen Flow Rate (L/min) 2 10/01/21 21:06 Temperature Temperature Source Pulse Rate 57 L Respiratory Rate 13 Respiratory Effort Respiratory Depth Respiratory Pattern Blood Pressure 106/30 L Blood Pressure Mean 55 Pulse Ox 100 Oxygen Delivery Method Nasal Cannula Oxygen Flow Rate (L/min) 3 Positive well nourished General Appearance ED: FABIANO LEACH Reports normocephalic atraumatic Eyes PERRL and EOMs intact bilaterally Neck full ROM General: Negative for tenderness Chest Wall inspection of chest normal Resp normal respiratory effort Auscultation: Negative for rales, rhonchi or wheezes Cardio regular rate and regular rhythm GI non-tender and non-distended Back/Spine no CVA tenderness Back/Spine Narrative: Mild tenderness to palpation lumbar spine approximately L4-L5. There is a small bruise overlying the midline. No deformity or step-off Extremity Extremity Narrative: Bruising to the bilateral knees however she maintains full range of motion in flexion extension. She moves her lower extremities briskly without any difficulty. Neurovascular intact throughout. Neuro oriented x3 and CN's II-XII intact bilaterally Sensorium / Orientation: alert Psych mental status grossly normal and thought process normal MDM MDM MDM Narrative Medical decision making narrative: Patient seen and evaluated for generalized weakness and multiple falls recently. Patient does have bruises on her extremities however she does not have any bony tenderness or deformity suggesting a fracture. She is able to move all 4 extremities. Patient does have some back pain and I did obtain an x-ray of the lumbar spine which on my interpretation shows no acute fractures. There is extensive degenerative changes. Chest x-ray my interpretation is cardiomegaly without any acute cardiopulmonary process. CT brain and cervical spine did not show any acute fractures but showed multiple degenerative changes of the cervical spine. No intracranial injury. CBC shows no leukocytosis. Hemoglobin 8.5. Patient does not report any black or bloody stools. Patient's hemoglobin does seem to go up and down over time. BMP shows a creatinine of 4.05 which is new. BUN is elevated at 57. Potassium 6.4. EKG on my interpretation shows a sinus rhythm with a ventricular rate of 60 bpm with first-degree AV block. There is no acute T wave changes. Patient will be treated with a 500 cc bolus of IV fluids and then will get fluids inpatient. TSH is normal. Findings discussed with family and they are comfortable with be admitted. Urinalysis pending on admission. Impression: 1. Generalized weakness 2. Multiple falls 3. Hyperkalemia 4. Acute kidney injury Lab Data Attestation: I reviewed the patient's lab results. Labs: Laboratory Results - last 24 hr 10/01/21 10/01/21 21:07 21:07 WBC 8.9 RBC 2.66 L Hgb 8.5 L Hct 26.5 L MCV 99.6 H MCH 32.0 MCHC 32.1 RDW Std Deviation 63.8 H RDW Coeff of Yolanda 17.5 H Plt Count 162 MPV 10.5 Immature Gran % (Auto) 0.200 Neut % (Auto) 69.9 Lymph % (Auto) 18.0 L [place] % (Auto) 10.2 H Eos % (Auto) 1.5 Baso % (Auto) 0.2 Absolute Neuts (auto) 6.2 Absolute Lymphs (auto) 1.60 Nucleated RBC % 0 Sodium 136 Potassium 6.4 H* Chloride 108 H Carbon Dioxide 20.0 L Anion Gap 8 BUN 57 H Creatinine 4.05 H Estim Creat Clear Calc 8.03 Est GFR (MDRD) Af Amer 14 L Est GFR (MDRD) Non-Af 11 L BUN/Creatinine Ratio 14.1 Glucose 96 Calcium 9.2 Troponin I High Sens 9 TSH 2.35 Radiography Diagnostic Testing: Clinical Impression(s) from Imaging Studies Brain CT 10/01/21 20:26 IMPRESSION: 1. Mild cortical and cerebellar atrophy. 2. No subdural, epidural, or intracerebral hematoma, hemorrhage or contusion. 3. No infarcts or intracranial mass lesions. 4. No other intracranial pathology. 5. Normal calvarium without linear or depressed skull fractures. 6. Normal paranasal sinuses. Electronically Signed: Cordell Resendiz MD at 22:00 EDT , Cervical Spine CT 10/01/21 20:26 IMPRESSION: 1. Mild cervical kyphosis and may be indicative of muscle spasm. 2. No vertebral body fractures. 3. Presence of a 3 mm forward subluxation of C3 with respect to C4. 4. Marked narrowing at the C4-C5 and C5-6 intervertebral disc spaces with moderate narrowing of the C6-C7 intervertebral disc space. 5. Moderate osteophytic degenerative changes from C3 through C7. 6. Mild posterior degenerative disks at the C4-5, C5-6, and C6-7 levels. Electronically Signed: Cordell Resendiz MD at 22:19 EDT , Chest X-Ray 10/01/21 21:30 IMPRESSION: 1. Moderate cardiomegaly without heart failure. 2. No other evidence of active cardiopulmonary disease. 3. Mildly elevated right hemidiaphragm, previous study of 03/05/2021. 4. Air-filled hepatic flexure of the colon beneath the right hemidiaphragm. Electronically Signed: Cordell Resendiz MD at 22:09 EDT , Lumbar Spine X-Ray 10/01/21 21:30 IMPRESSION: 1. No vertebral body fractures. 2. Presence of a 7 mm retrolisthesis of L3 with respect to L4. 3. Moderate narrowing of the L5-S1 intervertebral disc space and moderate narrowing of the L1-2 and L2-3 intervertebral disc spaces. 4. Moderate anterior osteophytic degenerative changes for the entire lumbar spine. 5. Extensive calcification of the abdominal aorta without aneurysmal dilatation. Bilateral renal artery stents are present. Electronically Signed: Cordell Resendiz MD at 22:23 EDT , Discharge Plan Triage Chief Complaint: Fall ED Provider: Martin Brody Dx/Rx/DC Orders Prescriptions: No Action atorvastatin 40 MG tablet 40 mg PO QHS hydrocodone-acetaminophen 1 TABLET tablet 1 tab PO Q6H PRN PRN (Reason: Pain) isosorbide mononitrate 30 MG tablet 60 mg PO DAILY allopurinol 100 MG tablet 200 mg PO DAILY cyanocobalamin (vitamin B-12) 1,000 MCG/ML solution 1,000 mcg IM Q30D aspirin 81 MG tablet,chewable 81 mg PO DAILY@0800 omeprazole 40 MG capsule,delayed release(DR/EC) 40 mg PO DAILY nitroglycerin 0.4 MG tablet, sublingual 0.4 mg SL Q5M PRN (Reason: CHEST PAIN) hydrocortisone 1 APPLIC cream 1 applic topical BID PRN PRN (Reason: Hemorrhoids) pyridoxine (vitamin B6) 100 MG tablet 100 mg PO DAILY duloxetine 20 MG capsule 40 mg PO DAILY labetalol 300 mg Tablet 300 mg PO BID terazosin 10 mg Capsule 10 mg PO QHS irbesartan [Avapro] 300 mg Tablet 300 mg PO DAILY furosemide 40 mg Tablet 40 mg PO DAILY Qty: 60 0RF Primary Care Provider: Davey Duarte Referrals: Davey Duarte MD [Primary Care Provider] -
[2021-10-01 21:05] VITALS: O2SAT 100
[2021-10-01 21:06] VITALS: BP 106/30; PULSE 57; RESP 13; O2SAT 100
[2021-10-01 21:13] LABS: Absolute Neutrophil Count 6.2 X10^3/uL (2.0-7.7); Basophil# 0.02 X10^3/uL; Basophil% 0.2 % (0-1); Eosinophil# 0.13 X10^3/uL; Eosinophils% 1.5 % (0-5); Hematocrit 26.5 % (37-47); Hemoglobin 8.5 g/dL (12.0-15.0); Mean Corp Hgb Conc 32.1 g/dL (32-36); Mean Corpuscular Volume 99.6 fL (81-99); Mean Platelet Vol. 10.5 fl (6.2-12.0); Monocyte# 0.91 X10^3/uL; Monocyte% 10.2 % (0-10); NRBC Flagged by Analyzer 0 % (0-5); Neutrophil % 69.9 % (47-70); Platelet Count 162 K/mm3 (150-450); RBC Distribution Width CV 17.5 % (11.6-14.6); RBC Distribution Width SD 63.8 fl (35.1-43.9); Red Blood Count 2.66 M/mm3 (4.2-5.4); White Blood Count 8.9 K/mm3 (4.4-11.0)
--- NOTE | 2021-10-01 21:30 | RAD_ITS ---
STUDY: AP UPRIGHT CHEST X-RAY OF 2139 HOURS ON 10/01/2021 REASON FOR EXAM: 86-year-old female with chest pain. TECHNIQUE: A single view AP upright chest x-ray was performed per protocol. COMPARISON: 03/05/2021. FINDINGS: Mild demineralization. Moderate cardiomegaly without heart failure. Moderately elevated right hemidiaphragm--noted in the previous study. No evidence of pulmonary infiltrates, atelectasis, effusion, pulmonary mass lesions. Heavily calcified thoracic aorta without aneurysmal dilatation. Air-filled hepatic flexure of the colon beneath the right hemidiaphragm. RAD/Chest 1 View (Portable) IMPRESSION: 1. Moderate cardiomegaly without heart failure. 2. No other evidence of active cardiopulmonary disease. 3. Mildly elevated right hemidiaphragm, previous study of 03/05/2021. 4. Air-filled hepatic flexure of the colon beneath the right hemidiaphragm. Electronically Signed: Cordell Resendiz MD at 22:09 EDT ,
--- NOTE | 2021-10-01 21:30 | RAD_ITS ---
STUDY: LIMITED LUMBOSACRAL SPINE X-RAYS THERE IS A 2142 HOURS ON 10/01/2021 REASON FOR EXAM: 86-year-old female with back pain. TECHNIQUE: 3 view(s) of the lumbar spine were obtained. COMPARISON: None FINDINGS: Normal mild lumbar lordosis. 7 mm retrolisthesis of the L3 vertebra with respect to L4. No vertebral body fractures. Marked narrowing of the L5-S1 intervertebral disc space. Moderate narrowing of the L1-2 and L2-3 intervertebral disc spaces. Moderate anterior osteophytic degenerative changes for the entire lumbar spine. Extensive calcification of the abdominal aorta without aneurysmal dilatation. Bilateral renal artery stents. RAD/Lumbar Spine 2 or 3 Views IMPRESSION: 1. No vertebral body fractures. 2. Presence of a 7 mm retrolisthesis of L3 with respect to L4. 3. Moderate narrowing of the L5-S1 intervertebral disc space and moderate narrowing of the L1-2 and L2-3 intervertebral disc spaces. 4. Moderate anterior osteophytic degenerative changes for the entire lumbar spine. 5. Extensive calcification of the abdominal aorta without aneurysmal dilatation. Bilateral renal artery stents are present. Electronically Signed: Cordell Resendiz MD at 22:23 EDT ,
[2021-10-01 22:05] LABS: Anion Gap 8 (5-15); BUN 57 mg/dL (7-18); BUN/Creat Ratio 14.1 RATIO (10-20); Calcium,Total 9.2 mg/dL (8.5-10.1); Chloride 108 mmol/L (98-107); Creatinine, Serum 4.05 mg/dL (0.55-1.02); EST Glomerular Filtration Rate 11 mL/min (>60); Est Glom Filt Rate - Afr Amer 14 mL/min (>60); Estimated Creatinine Clearance 8.03 ml/min; Glucose 96 mg/dL (74-106); Potassium 6.4 mmol/L (3.5-5.1); Sodium Level 136 mmol/L (136-145); Thyroid Stim Hormone (TSH) 2.35 uIU/mL (0.358-3.74); Troponin-I HS (w/2H Reflex) 9 pg/mL (3.0-54.0)
--- NOTE | 2021-10-01 22:54 | PCM.HP.STD ---
[facility] - General General Date of Admission: 10/01/21 Date of Service: 10/01/21 Chief Complaint: frequent falling [facility] Narrative CARLA MORROW, is a 86 F who presents to the emergency room with chief complaint of frequent falling. Patient has multiple contusions in various stages of healing along with some upper back and neck soreness. The patient is of advanced age and lives at home independently. It seems that she has not been eating or drinking well over the past 5 days. Her creatinine is elevated above baseline at 4 despite having chronic kidney disease. Lumbar x-ray is negative for fracture however that she does have chronic findings. The patient denies any chest pain, shortness of breath and/or fevers or chills. She will be admitted to general medical floor for IV hydration and physical therapy assessment in the morning for a safe discharge plan. ON LICENSE OF [facility] Medical History Anxiety BiPAP (biphasic positive airway pressure) dependence Congestive heart failure (CHF) Depression Hyperlipidemia Hypertension Presence of stent in artery Sleep apnea Home Medications allopurinol 100 mg tablet 200 mg PO DAILY gout 10/24/14 [History Last Taken 03/05/21] aspirin 81 mg chewable tablet 81 mg PO DAILY@0800 heart health 10/24/14 [History Last Taken 03/05/21] atorvastatin 40 mg tablet 40 mg PO QHS cholesterol 10/24/14 [History Last Taken 03/05/21 19:55] cyanocobalamin (vitamin B-12) 1,000 mcg/mL injection solution 1,000 mcg IM Q30D vitamin 10/24/14 [History Last Taken Unknown] hydrocodone-acetaminophen 5-325mg 5mg-325mg 1 tab PO Q6H PRN PRN Pain 10/24/14 [History Last Taken 03/05/21 19:57] isosorbide mononitrate 30 mg tablet,extended release 24 hr 60 mg PO DAILY heart health 10/24/14 [History Last Taken 03/05/21] duloxetine 20 mg capsule,delayed release 40 mg PO DAILY mental health 10/13/19 [History Last Taken 03/05/21] hydrocortisone 2.5 % topical cream 1 applic topical BID PRN PRN Hemorrhoids 10/13/19 [History Last Taken Unknown] nitroglycerin 0.4 mg sublingual tablet 0.4 mg SL Q5M PRN CHEST PAIN 10/13/19 [History Last Taken Unknown] omeprazole 40 mg capsule,delayed release 40 mg PO DAILY reflux 10/13/19 [History Last Taken 03/05/21] pyridoxine (vitamin B6) 100 mg tablet 100 mg PO DAILY vitamin 10/13/19 [History Last Taken 03/05/21] irbesartan 300 mg tablet (Avapro) 300 mg PO DAILY blood pressure 03/05/21 [History Last Taken Unknown] labetalol 300 mg tablet 300 mg PO BID blood pressure 03/05/21 [History Last Taken Unknown] terazosin 10 mg capsule 10 mg PO QHS blood pressure 03/05/21 [History Last Taken Unknown] furosemide 40 mg tablet 40 mg PO DAILY #60 tabs 03/07/21 [Rx Last Taken Unknown] Allergy/AdvReac Type Severity Reaction Status Date / Time GREG Inhibitors AdvReac Unknown Verified 10/01/21 19:49 carvedilol [From Coreg] AdvReac Unknown Verified 10/01/21 19:49 nifedipine [From Procardia] AdvReac Unknown Verified 10/01/21 19:49 simvastatin [From Zocor] AdvReac Unknown Verified 10/01/21 19:49 spironolactone AdvReac Unknown Verified 10/01/21 19:49 Surgical History History of appendectomy History of hysterectomy Social History household members: family Smoking Status: Never smoker substance use type: does not use ROS Constitutional Constitutional: Reports anorexia and weakness Eyes Eyes: Denies blurry vision ENT HEENT: Denies abnormal hearing Cardiovascular Cardiovascular: Denies chest pain Respiratory/Chest Respiratory/Chest: Denies cough Gastrointestinal Gastrointestinal: Denies abdominal pain Genitourinary Genitourinary: Denies dysuria Musculoskeletal Musculoskeletal: Reports back pain and neck pain Integumentary Integumentary: Denies dry skin Neurologic Neurologic: Denies abnormal gait Psychiatric Psychiatric: Denies anxiety Endocrine Endocrinology: Denies change in body appearance Vital Signs Vital Signs Vital Signs: 10/01/21 19:49 10/01/21 20:56 10/01/21 21:05 Temperature 97.6 F L Temperature Source Temporal Pulse Rate 61 Respiratory Rate 15 Respiratory Effort Normal Respiratory Depth Normal Respiratory Pattern Normal Blood Pressure 107/41 L Blood Pressure Mean 63 Pulse Ox 98 100 Oxygen Delivery Method Room Air Room Air Nasal Cannula Oxygen Flow Rate (L/min) 2 10/01/21 21:06 Temperature Temperature Source Pulse Rate 57 L Respiratory Rate 13 Respiratory Effort Respiratory Depth Respiratory Pattern Blood Pressure 106/30 L Blood Pressure Mean 55 Pulse Ox 100 Oxygen Delivery Method Nasal Cannula Oxygen Flow Rate (L/min) 3 Weight Weight: 186 lb Body Mass Index (BMI) 34.0 Physical Exam Const alert, oriented x3 and no apparent distress General Appearance: cooperative HEENT normocephalic Eyes PERRL Neck nuchal rigidity Lymph Lymphatic: no lymphadenopathy noted Resp normal respiratory effort and normal air movement Cardio regular rate, regular rhythm, S1 normal heart sound and S2 normal heart sound Heart Sounds: murmur GI non-tender Extremity no clubbing, cyanosis or edema Skin General Skin Exam: no breakdown Neuro CN's II-XII intact bilaterally Psych affect normal Results Lab / Micro Data Result Diagrams: 10/01/21 21:07 10/01/21 21:07 Labs: Laboratory Results - last 24 hr 10/01/21 21:07: WBC 8.9, RBC 2.66 L, Hgb 8.5 L, Hct 26.5 L, MCV 99.6 H, MCH 32.0, MCHC 32.1, RDW Std Deviation 63.8 H, RDW Coeff of Yolanda 17.5 H, Plt Count 162, MPV 10.5, Immature Gran % (Auto) 0.200, Neut % (Auto) 69.9, Lymph % (Auto) 18.0 L, [place] % (Auto) 10.2 H, Eos % (Auto) 1.5, Baso % (Auto) 0.2, Absolute Neuts (auto) 6.2, Absolute Lymphs (auto) 1.60, Nucleated RBC % 0 10/01/21 21:07: Sodium 136, Potassium 6.4 H*, Chloride 108 H, Carbon Dioxide 20.0 L, Anion Gap 8, BUN 57 H, Creatinine 4.05 H, Estim Creat Clear Calc 8.03, Est GFR (MDRD) Af Amer 14 L, Est GFR (MDRD) Non-Af 11 L, BUN/Creatinine Ratio 14.1, Glucose 96, Calcium 9.2, Troponin I High Sens 9, TSH 2.[address] 10/01/21 20:26 IMPRESSION: 1. Mild cortical and cerebellar atrophy. 2. No subdural, epidural, or intracerebral hematoma, hemorrhage or contusion. 3. No infarcts or intracranial mass lesions. 4. No other intracranial pathology. 5. Normal calvarium without linear or depressed skull fractures. 6. Normal paranasal sinuses. Electronically Signed: Cordell Resendiz MD at 22:00 EDT , Cervical Spine CT 10/01/21 20:26 IMPRESSION: 1. Mild cervical kyphosis and may be indicative of muscle spasm. 2. No vertebral body fractures. 3. Presence of a 3 mm forward subluxation of C3 with respect to C4. 4. Marked narrowing at the C4-C5 and C5-6 intervertebral disc spaces with moderate narrowing of the C6-C7 intervertebral disc space. 5. Moderate osteophytic degenerative changes from C3 through C7. 6. Mild posterior degenerative disks at the C4-5, C5-6, and C6-7 levels. Electronically Signed: Cordell Resendiz MD at 22:19 EDT , Chest X-Ray 10/01/21 21:30 IMPRESSION: 1. Moderate cardiomegaly without heart failure. 2. No other evidence of active cardiopulmonary disease. 3. Mildly elevated right hemidiaphragm, previous study of 03/05/2021. 4. Air-filled hepatic flexure of the colon beneath the right hemidiaphragm. Electronically Signed: Cordell Resendiz MD at 22:09 EDT , Lumbar Spine X-Ray 10/01/21 21:30 IMPRESSION: 1. No vertebral body fractures. 2. Presence of a 7 mm retrolisthesis of L3 with respect to L4. 3. Moderate narrowing of the L5-S1 intervertebral disc space and moderate narrowing of the L1-2 and L2-3 intervertebral disc spaces. 4. Moderate anterior osteophytic degenerative changes for the entire lumbar spine. 5. Extensive calcification of the abdominal aorta without aneurysmal dilatation. Bilateral renal artery stents are present. Electronically Signed: Cordell Resendiz MD at 22:23 EDT , Assessment & Plan Assessment/Plan (1) History of cardiac murmur: (2) History of hypertension: (3) Sleep apnea: (4) Obesity (BMI 30-39.9): (5) Fall: (6) Acute on chronic renal failure: PLAN: Plan 1. Acute on chronic renal failure?admit patient to general medical floor gentle IV hydration with normal saline at 75 cc/h, repeat BMP in the morning 2. Frequent falls at home likely secondary to dehydration and poor nutrition status?physical therapy to evaluate and assess balance in the morning 3. Hypertension?hold medication at this time 4. Sleep apnea?continue CPAP machine 5. DVT prophylaxis?SCDs Charges/Coding Visit Charges Inpatient E&M: 92583 Init Hosp L3
[2021-10-01 23:10] LABS: Reflex Troponin-HS? (from REC) Y
[2021-10-01 23:14] VITALS: BP 108/38; PULSE 61; RESP 17; O2SAT 100
[2021-10-01 23:20] LABS: BNP,B-Type NATRIURETIC PEPTIDE 280.5 pg/mL (0-100)
[2021-10-01 23:48] LABS: Bacteria 0 SEEN /hpf (None Seen); Mucous, Urine 0 SEEN /hpf (<or=2+); Red Blood Cells-Urine 0 SEEN /hpf (0-5); Squamous Epithelial Cells - UA 0 SEEN /hpf (5-10); White Blood Cells 0 SEEN /hpf (0-5)
[2021-10-01 23:49] LABS: Color, Urine Yellow (Yellow); Glucose, Dipstick Normal (Normal); Ketone-Dipstick Negative (Negative); Leukocyte Esterase-Dipstick Negative /ul (Negative); Nitrite-Dipstick Negative (Negative); Occult Blood-Urine Negative /ul (Negative); Protein-Dipstick Negative (Negative); Specific Gravity, Urine 1.015 (1.002-1.030); Urine Bilirubin Dipstick Negative (Negative); Urine Clarity Clear (Clear); Urine Urobilinogen Normal (Normal)
[2021-10-02] VITALS (11 sets, daily range): BP systolic 93–124; BP diastolic 38–68; PULSE 61–72; RESP 16–18; TEMP 36.1–36.7; O2SAT 95–100; BMI 33.8
[2021-10-02 00:46] LABS: Troponin-I HS 7 pg/mL (3.0-54.0)
[2021-10-02] MEDS: Sodium Polystyrene Sulfonate 15 GM/60 ML UDC PO (01:41)
[2021-10-02] MEDS: 0.9% Saline Lock 10 ML Syringe IV ×3 (01:41→15:49)
[2021-10-02] MEDS: 0.9% Normal Saline 1,000 ML 75 ML IV ×2 (01:41→15:23)
[2021-10-02 06:02] LABS: Anion Gap 7 (5-15); BUN 53 mg/dL (7-18); BUN/Creat Ratio 14.4 RATIO (10-20); Calcium,Total 8.8 mg/dL (8.5-10.1); Chloride 110 mmol/L (98-107); Creatinine, Serum 3.67 mg/dL (0.55-1.02); EST Glomerular Filtration Rate 13 mL/min (>60); Est Glom Filt Rate - Afr Amer 15 mL/min (>60); Estimated Creatinine Clearance 8.86 ml/min; Glucose 98 mg/dL (74-106); Potassium 5.9 mmol/L (3.5-5.1); Sodium Level 138 mmol/L (136-145)
--- NOTE | 2021-10-02 07:42 | PN.HOSP_ITS ---
Subjective Subjective Patient is an 86-year-old lady admitted with multiple falls. Found to be anemic as well as with acute kidney injury and elevated potassium admitted to a monitored bed for further management Objective Data Objective Data Vital Signs: Vital Signs Temp Pulse Resp BP Pulse Ox O2 Del Method O2 Flow Rate 98.1 F 66 16 112/40 L 98 Nasal Cannula 1 10/02/21 06:17 10/02/21 06:17 10/02/21 06:17 10/02/21 06:17 10/02/21 06:17 10/02/21 06:17 10/02/21 06:17 Oxygen Flow Rate (L/min) 1 Oxygen Delivery Method Nasal Cannula Weight: 83.915 kg Body Mass Index (BMI) 33.8 Intake & Output: Intake and Output for Last 24 Hours 09/30/21 10/01/21 10/02/21 23:59 23:59 23:59 Intake Total 500 / 500 Balance 500 / 500 Lab / Micro Data Result Diagrams: 10/01/21 21:07 10/02/21 05:32 Labs: Laboratory Results - last 24 hr 10/01/21 21:07: WBC 8.9, RBC 2.66 L, Hgb 8.5 L, Hct 26.5 L, MCV 99.6 H, MCH 32.0, MCHC 32.1, RDW Std Deviation 63.8 H, RDW Coeff of Yolanda 17.5 H, Plt Count 162, MPV 10.5, Immature Gran % (Auto) 0.200, Neut % (Auto) 69.9, Lymph % (Auto) 18.0 L, [place] % (Auto) 10.2 H, Eos % (Auto) 1.5, Baso % (Auto) 0.2, Absolute Neuts (auto) 6.2, Absolute Lymphs (auto) 1.60, Nucleated RBC % 0 10/01/21 21:07: Sodium 136, Potassium 6.4 H*, Chloride 108 H, Carbon Dioxide 20.0 L, Anion Gap 8, BUN 57 H, Creatinine 4.05 H, Estim Creat Clear Calc 8.03, Est GFR (MDRD) Af Amer 14 L, Est GFR (MDRD) Non-Af 11 L, BUN/Creatinine Ratio 14.1, Glucose 96, Calcium 9.2, Troponin I High Sens 9, TSH 2.35 10/01/21 21:07: B-Natriuretic Peptide 280.5 H 10/01/21 23:37: Urine Color Yellow, Urine Clarity Clear, Urine pH 5.0, Ur Specific [place] 1.015, Urine Protein Negative, Urine Glucose (UA) Normal, Urine Ketones Negative, Urine Occult Blood Negative, Urine Nitrite Negative, Urine Bilirubin Negative, Urine Urobilinogen Normal, Ur Leukocyte Esterase Negative, Urine RBC 0 SEEN, Urine WBC 0 SEEN, Ur Squamous Epith Cells 0 SEEN, Urine Bacteria 0 SEEN, Urine Mucus 0 SEEN 10/01/21 23:55: Troponin I High Sens 7 10/02/21 05:32: Sodium 138, Potassium 5.9 H, Chloride 110 H, Carbon Dioxide 2 1.0, Anion Gap 7, BUN 53 H, Creatinine 3.67 H, Estim Creat Clear Calc 8.86, Est GFR (MDRD) Af Amer 15 L, Est GFR (MDRD) Non-Af 13 L, BUN/Creatinine Ratio 14.4, Glucose 98, Calcium 8.8 Radiography Diagnostic Testing: Radiology Impression Brain CT 10/01/21 20:26 IMPRESSION: 1. Mild cortical and cerebellar atrophy. 2. No subdural, epidural, or intracerebral hematoma, hemorrhage or contusion. 3. No infarcts or intracranial mass lesions. 4. No other intracranial pathology. 5. Normal calvarium without linear or depressed skull fractures. 6. Normal paranasal sinuses. Electronically Signed: Cordell Resendiz MD at 22:00 EDT Reading Location ID and State: [facility] / [place] Tel , Service support , Cervical Spine CT 10/01/21 20:26 IMPRESSION: 1. Mild cervical kyphosis and may be indicative of muscle spasm. 2. No vertebral body fractures. 3. Presence of a 3 mm forward subluxation of C3 with respect to C4. 4. Marked narrowing at the C4-C5 and C5-6 intervertebral disc spaces with moderate narrowing of the C6-C7 intervertebral disc space. 5. Moderate osteophytic degenerative changes from C3 through C7. 6. Mild posterior degenerative disks at the C4-5, C5-6, and C6-7 levels. Electronically Signed: Cordell Resendiz MD at 22:19 EDT Reading Location ID and State: [facility] / [place] Tel , Service support , Chest X-Ray 10/01/21 21:30 IMPRESSION: 1. Moderate cardiomegaly without heart failure. 2. No other evidence of active cardiopulmonary disease. 3. Mildly elevated right hemidiaphragm, previous study of 03/05/2021. 4. Air-filled hepatic flexure of the colon beneath the right hemidiaphragm. Electronically Signed: Cordell Resendiz MD at 22:09 EDT , Lumbar Spine X-Ray 10/01/21 21:30 IMPRESSION: 1. No vertebral body fractures. 2. Presence of a 7 mm retrolisthesis of L3 with respect to L4. 3. Moderate narrowing of the L5-S1 intervertebral disc space and moderate narrowing of the L1-2 and L2-3 intervertebral disc spaces. 4. Moderate anterior osteophytic degenerative changes for the entire lumbar spine. 5. Extensive calcification of the abdominal aorta without aneurysmal dilatation. Bilateral renal artery stents are present. Electronically Signed: Cordell Resendiz MD at 22:23 EDT , Physical Exam Narrative GENERAL: cooperative HEENT: Atraumatic; EYES; Anicteric, Normal Conjunctiva NECK; supple, normal thyroid, RESPIRATORY: Diminished to auscultation CARDIOVASCULAR: Regular S1 S2, GI: soft, normoactive bowel sounds, : No Renal angle tenderness; EXTREMITIES: No edema, no clubbing, MUSCULOSKELETAL: no muscle wasting NEURO: Awake; no lateralizing signs. SKIN: Bruises lower extremities PSYCH; Flat affect Assessment & Plan Assessment/Plan (1) History of cardiac murmur: (2) History of hypertension: (3) Sleep apnea: (4) Obesity (BMI 30-39.9): (5) Fall: (6) Acute on chronic renal failure: PLAN: Plan Patient is an 86-year-old lady admitted with multiple falls. Found to be anemic as well as with acute kidney injury and elevated potassium admitted for further inpatient management 1. Acute on chronic kidney disease stage IIIa ? Patient creatinine as of 03/07/2021 was 1.33 creatinine on admission was 4.05. Admitted to regular nursing floor. Patient started on IV fluid with monitoring of electrolytes.. Potential nephrotoxic medications including patient's diuretics and ARB held. As part of his management ordered renal duplex 2. Hyperkalemia ? Due to combination of patient impaired kidney function as well as patient being on potassium supplementation patient potassium supplementation discontinued patient given Kayexalate with subsequent monitoring of potassium levels ordered. Patient currently being monitored on continuous telemetry 3. Frequent falls ? Requested for PT OT eval and social media marketing manager to assist with discharge planning 4. Chronic congestive heart failure with preserved ejection fraction ? Currently compensated 5. Essential hypertension ? Did continue with home meds 6. Obesity with BMI of 33.8 ? Weight loss advised 7. Obstructive sleep apnea ? On CPAP machine at night 8. Anemia - Secondary to chronic disorder monitoring H&H and transfuse if patient becomes symptomatic or hemoglobin falls below 7 9. Dyslipidemia -Patient is on statin therapy, continued at home dose 10. GERD ? Patient is on PPI did continue 11. Gout ? Patient is on allopurinol did continue 12. DVT prophylaxis ? SC heparin Charges/Coding Visit Charges Inpatient E&M: 61805 [facility] Hosp L3
[2021-10-02] MEDS: DULoxetine Hcl 20 MG Capsule 40 MG PO (08:25)
[2021-10-02] MEDS: Allopurinol 100 MG Tablet 200 MG PO (08:25)
[2021-10-02] MEDS: Pantoprazole Sodium 40 MG Tablet PO (08:25)
[2021-10-02] MEDS: Aspirin 81 MG TAB.CHEW PO (08:25)
[2021-10-02] MEDS: Isosorbide Mononitrate 60 MG Tablet PO (08:25)
[2021-10-02] MEDS: Pyridoxine HCl 100 MG Tablet PO (08:27)
--- NOTE | 2021-10-02 09:07 | US_ITS ---
STUDY: RENAL ULTRASOUND - COMPLETE REASON FOR EXAM: Female, 86 years old. Renal failure TECHNIQUE: Ultrasound evaluation of the kidneys was performed with real-time and static dyer-scale imaging. COMPARISON: Comparison is made with prior study dated 10/14/2019. FINDINGS: RIGHT KIDNEY: Normal location of the right kidney, which is normal in size. The right kidney measures 9.6 cm x 5.6 x 4.5 cm. There is diffuse thinning of the renal cortex. The renal cortex measures 0.8 cm. There is no right renal mass or cyst. There are no right renal calculi. There is no right hydronephrosis. DISTAL RIGHT URETER: There is non-visualization of the distal right ureter. There is no demonstrated right ureterovesical junction calculus. There is no demonstrated right ureteral jet. LEFT KIDNEY: Normal location of the left kidney, which is normal in size. The left kidney measures 10.2 cm x 4.3 cm x 4.3 cm. There is diffuse thinning of the renal cortex. The renal cortex measures 0.6 cm. 2 small renal cysts are seen. The largest is in the lateral aspect of the kidney and measures 1.5 cm by 1.5 cm x 1.4 cm. There are no left renal calculi. There is no left hydronephrosis. DISTAL LEFT URETER: There is non-visualization of the distal left ureter. There is no demonstrated left ureterovesical junction calculus. There is no demonstrated left ureteral jet. BLADDER: The distended urinary bladder has a volume of 75 ml. There is a normal wall thickness of the distended urinary bladder. There is no demonstrated mass within the urinary bladder. There are no demonstrated bladder calculi. US/Kidney and Bladder IMPRESSION: Mild degree of bilateral renal cortical thinning. Electronically Signed: Eran Stack MD at 14:44 EDT ,
[2021-10-02] MEDS: Cholecalciferol (VIT D3) 25 MCG TABLET (1,000 UNITS) 50 MCG PO (10:43)
[2021-10-02] MEDS: Heparin Injection (Vial) 5,000 UNIT/ML VIAL 5000 UNIT SC ×2 (10:43→21:00)
[2021-10-02] MEDS: Labetalol 100 MG Tablet 300 MG PO (10:43)
[2021-10-02] MEDS: Docusate Sodium 100 MG Capsule PO ×2 (10:43→20:59)
[2021-10-02] MEDS: Sodium Polystyrene Sulfonate 15 GM/60 ML UDC 30 GM PO (10:44)
--- NOTE | 2021-10-02 11:35 | CASEMGMT ---
MEAGAN PAIGE Face to Face with patient for initial transition planning/care coordination assessment. MEAGAN PAIGE introduced self and role at [facility]. Patient lying in bed, alert and slightly confused. Patient willing to participate in assessment and is able to answer most questions appropriately. Care providers, pharmacy, and demographics verified. Patient wishes to discharge home, will monitor for HHC pending progress with therapy. MEAGAN PAIGE asked permission to call daughter and discuss discharge planning, patient gave permission. Patient states she has no further needs or concerns at this time. MEAGAN PAIGE called and spoke with daughter Kika and clarified specialist, pharmacy, and discharge plan. Daughter wishes for patient to discharge home with HHC. CM to follow for discharge planning needs that may arise. PCP: Gerald Specialists: Pineda, healthcare technician; Sejal, vascular surgeon, [facility] main; Ronnell, Blacking Wheel Tender Preferred Pharmacy: [facility] Insurance: [employer] Prescription Benefit: yes Living Will/HPOA: yes, daughter Kika Hotte LNOK: daughter Living Arrangements: Patient lives alone in a single story home with 1 step to enter the home. Patient states she is independent at home, daughter assists with laundry Transportation: daughter DME/HHC: Patient states she has cane, walker, grab bars, pulse ox, and home oxygen with portable tanks through [employer]. MEAGAN PAIGE called [facility] and confirmed order for 2lpm with ambulation. Patient has had [facility] HHC in the past. Disposition Plan: Patient to discharge home with family support and follow-up plans in place. Will monitor for possible HHC pending therapy. Jess ARMAS, RN, CM
[2021-10-02 13:10] LABS: Anion Gap 9 (5-15); BUN 51 mg/dL (7-18); BUN/Creat Ratio 14.4 RATIO (10-20); Calcium,Total 9.3 mg/dL (8.5-10.1); Chloride 109 mmol/L (98-107); Creatinine, Serum 3.53 mg/dL (0.55-1.02); EST Glomerular Filtration Rate 13 mL/min (>60); Est Glom Filt Rate - Afr Amer 16 mL/min (>60); Estimated Creatinine Clearance 9.22 ml/min; Glucose 101 mg/dL (74-106); Potassium 5.1 mmol/L (3.5-5.1); Sodium Level 137 mmol/L (136-145)
[2021-10-02 17:50] LABS: Anion Gap 6 (5-15); BUN 51 mg/dL (7-18); BUN/Creat Ratio 15.5 RATIO (10-20); Calcium,Total 8.8 mg/dL (8.5-10.1); Chloride 111 mmol/L (98-107); Creatinine, Serum 3.29 mg/dL (0.55-1.02); EST Glomerular Filtration Rate 14 mL/min (>60); Est Glom Filt Rate - Afr Amer 17 mL/min (>60); Estimated Creatinine Clearance 9.89 ml/min; Glucose 113 mg/dL (74-106); Potassium 5.1 mmol/L (3.5-5.1); Sodium Level 137 mmol/L (136-145)
[2021-10-02] MEDS: Atorvastatin Calcium 40 MG Tablet PO (20:59)
[2021-10-02] MEDS: Doxazosin 4 MG Tablet 8 MG PO (20:59)
[2021-10-02] MEDS: 0.9% Normal Saline 1,000 ML 150 ML IV (21:00)
[2021-10-03] VITALS (12 sets, daily range): BP systolic 126–147; BP diastolic 35–51; PULSE 69–84; RESP 16–18; TEMP 36.7–36.9; O2SAT 97–100
[2021-10-03] MEDS: 0.9% Normal Saline 1,000 ML 150 ML IV (03:29)
[2021-10-03 05:21] LABS: Absolute Lymphocyte Count 0.97 X10^3/uL (0.83-4.51); Absolute Neutrophil Count 3.7 X10^3/uL (2.0-7.7); Basophil# 0.01 X10^3/uL; Basophil% 0.2 % (0-1); Eosinophil# 0.09 X10^3/uL; Eosinophils% 1.7 % (0-5); Hematocrit 23.3 % (37-47); Hemoglobin 7.6 g/dL (12.0-15.0); Lymphocyte # 0.97 X10^3/ul (0.83-4.51); Lymphocyte % 18.2 % (19-41); Mean Corp Hgb Conc 32.6 g/dL (32-36); Mean Corpuscular Hgb 31.9 pg (27.0-32.0); Mean Corpuscular Volume 97.9 fL (81-99); Mean Platelet Vol. 10.6 fl (6.2-12.0); Monocyte# 0.54 X10^3/uL; Monocyte% 10.1 % (0-10); NRBC Flagged by Analyzer 0 % (0-5); Neutrophil # 3.69 X10^3/uL (2.7-7.7); Neutrophil % 69.1 % (47-70); Platelet Count 138 K/mm3 (150-450); RBC Distribution Width CV 17.7 % (11.6-14.6); RBC Distribution Width SD 63.3 fl (35.1-43.9); Red Blood Count 2.38 M/mm3 (4.2-5.4); White Blood Count 5.3 K/mm3 (4.4-11.0)
[2021-10-03 05:47] LABS: Anion Gap 5 (5-15); BUN 40 mg/dL (7-18); BUN/Creat Ratio 16.3 RATIO (10-20); Calcium,Total 8.4 mg/dL (8.5-10.1); Chloride 115 mmol/L (98-107); Creatinine, Serum 2.45 mg/dL (0.55-1.02); EST Glomerular Filtration Rate 20 mL/min (>60); Est Glom Filt Rate - Afr Amer 24 mL/min (>60); Estimated Creatinine Clearance 13.28 ml/min; Glucose 82 mg/dL (74-106); Magnesium 1.6 mg/dL (1.6-2.6); Potassium 4.6 mmol/L (3.5-5.1); Sodium Level 140 mmol/L (136-145)
--- NOTE | 2021-10-03 07:34 | PCM.PN.HOSP ---
Subjective Subjective Patient seen renal function continues to improve. Renal duplex demonstrated cortical thinning otherwise unremarkable. Potassium down to 4.4 Objective Data Objective Data Vital Signs: Vital Signs Temp Pulse Resp BP Pulse Ox O2 Del Method O2 Flow Rate 98.1 F 84 16 141/44 H 97 Nasal Cannula 2 10/03/21 02:50 10/03/21 04:14 10/03/21 02:50 10/03/21 02:50 10/03/21 03:00 10/03/21 03:00 10/03/21 03:00 Oxygen Flow Rate (L/min) 2 Oxygen Delivery Method Nasal Cannula Weight: 83.915 kg Body Mass Index (BMI) 33.8 Intake & Output: Intake and Output for Last 24 Hours 10/01/21 10/02/21 10/03/21 23:59 23:59 23:59 Intake Total 2416.25 / 2416.25 1672.5 / 1672.5 Balance 2416.25 / 2416.25 1672.5 / 1672.5 Lab / Micro Data Result Diagrams: 10/03/21 05:06 10/03/21 05:06 Labs: Laboratory Results - last 24 hr 10/02/21 12:25: Sodium 137, Potassium 5.1, Chloride 109 H, Carbon Dioxide 19.0 L, Anion Gap 9, BUN 51 H, Creatinine 3.53 H, Estim Creat Clear Calc 9.22, Est GFR (MDRD) Af Amer 16 L, Est GFR (MDRD) Non-Af 13 L, BUN/Creatinine Ratio 14.4, Glucose 101, Calcium 9.3 10/02/21 17:25: Sodium 137, Potassium 5.1, Chloride 111 H, Carbon Dioxide 20.0 L, Anion Gap 6, BUN 51 H, Creatinine 3.29 H, Estim Creat Clear Calc 9.89, Est GFR (MDRD) Af Amer 17 L, Est GFR (MDRD) Non-Af 14 L, BUN/Creatinine Ratio 15.5, Glucose 113 H, Calcium 8.8 10/03/21 05:06: WBC 5.3, RBC 2.38 L, Hgb 7.6 L, Hct 23.3 L, MCV 97.9, MCH 31.9, MCHC 32.6, RDW Std Deviation 63.3 H, RDW Coeff of Yolanda 17.7 H, Plt Count 138 L, MPV 10.6, Immature Gran % (Auto) 0.700, Neut % (Auto) 69.1, Lymph % (Auto) 18.2 L, [place] % (Auto) 10.1 H, Eos % (Auto) 1.7, Baso % (Auto) 0.2, Absolute Neuts (auto) 3.7, Absolute Lymphs (auto) 0.97, Nucleated RBC % 0 10/03/21 05:06: Sodium 140, Potassium 4.6, Chloride 115 H, Carbon Dioxide 20.0 L, Anion Gap 5, BUN 40 H, Creatinine 2.45 H, Estim Creat Clear Calc 13.28, Est GFR (MDRD) Af Amer 24 L, Est GFR (MDRD) Non-Af 20 L, BUN/Creatinine Ratio 16.3, Glucose 82, Calcium 8.4 L, Magnesium 1.6 Radiography Diagnostic Testing: Radiology Impression Renal Ultrasound 10/02/21 09:07 IMPRESSION: Mild degree of bilateral renal cortical thinning. Electronically Signed: Eran Stack MD at 14:44 EDT , Physical Exam Narrative GENERAL: cooperative HEENT: Atraumatic; EYES; Anicteric, Normal Conjunctiva NECK; supple, normal thyroid, RESPIRATORY: Diminished to auscultation CARDIOVASCULAR: Regular S1 S2, GI: soft, normoactive bowel sounds, : No Renal angle tenderness; EXTREMITIES: No edema, no clubbing, MUSCULOSKELETAL: no muscle wasting NEURO: Awake; no lateralizing signs. SKIN: Bruises lower extremities PSYCH; Flat affect Assessment & Plan Assessment/Plan (1) History of cardiac murmur: (2) History of hypertension: (3) Sleep apnea: (4) Obesity (BMI 30-39.9): (5) Fall: (6) Acute on chronic renal failure: PLAN: Plan Patient is an 86-year-old lady admitted with multiple falls. Found to be anemic as well as with acute kidney injury and elevated potassium admitted for further inpatient management 1. Acute on chronic kidney disease stage IIIa ? Patient creatinine as of 03/07/2021 was 1.33 creatinine on admission was 4.05. Admitted to regular nursing floor. Patient started on IV fluid with monitoring of electrolytes.. Potential nephrotoxic medications including patient's diuretics and ARB held. As part of his management ordered renal duplex ? 10/03/2021 kidney function continues to improve 2. Hyperkalemia ? Due to combination of patient impaired kidney function as well as patient being on potassium supplementation patient potassium supplementation discontinued patient given Kayexalate with subsequent monitoring of potassium levels ordered. Patient currently being monitored on continuous telemetry ? 10/03/2021 hyperkalemia resolved 3. Frequent falls ? Requested for PT OT eval and professor of social work to assist with discharge planning 4. Chronic congestive heart failure with preserved ejection fraction ? Currently compensated 5. Essential hypertension ? Did continue with home meds 6. Obesity with BMI of 33.8 ? Weight loss advised 7. Obstructive sleep apnea ? On CPAP machine at night 8. Anemia - Secondary to chronic disorder monitoring H&H and transfuse if patient becomes symptomatic or hemoglobin falls below 7 9. Dyslipidemia -Patient is on statin therapy, continued at home dose 10. GERD ? Patient is on PPI did continue 11. Gout ? Patient is on allopurinol did continue 12. DVT prophylaxis ? SC heparin Charges/Coding Visit Charges Inpatient E&M: 72693 Subs Hosp L2
[2021-10-03] MEDS: Allopurinol 100 MG Tablet 200 MG PO (07:59)
[2021-10-03] MEDS: Aspirin 81 MG TAB.CHEW PO (07:59)
[2021-10-03] MEDS: DULoxetine Hcl 20 MG Capsule 40 MG PO (10:34)
[2021-10-03] MEDS: Docusate Sodium 100 MG Capsule PO ×2 (10:34→22:18)
[2021-10-03] MEDS: Heparin Injection (Vial) 5,000 UNIT/ML VIAL 5000 UNIT SC ×2 (10:34→22:16)
[2021-10-03] MEDS: Isosorbide Mononitrate 60 MG Tablet PO (10:35)
[2021-10-03] MEDS: Pantoprazole Sodium 40 MG Tablet PO (10:35)
[2021-10-03] MEDS: Labetalol 100 MG Tablet 300 MG PO ×2 (10:35→22:18)
[2021-10-03] MEDS: Pyridoxine HCl 100 MG Tablet PO (10:36)
[2021-10-03] MEDS: Cholecalciferol (VIT D3) 25 MCG TABLET (1,000 UNITS) 50 MCG PO (10:36)
--- NOTE | 2021-10-03 15:13 | CASEMGMT ---
Addendum entered by Araseli Phoenix 10/03/21 15:28: Received tc back from [facility], they are able to accept pt for SOC on Friday. Pt aware. Original Note: RN CM in to pt room. Pt sitting up in chair with dtr at bedside. Discussed dc planning with pt and dtr, patient was provided a list of [facility] providers including quality and resource use data and consistent with the patient?s preferred geographic region, medical needs, and insurance network. The patient?s preferred provider is [facility]. Pt and dtr agreeable to nursing as well as therapy. TC to [facility] at [facility], referral made. Will await acceptance.
[2021-10-03] MEDS: Atorvastatin Calcium 40 MG Tablet PO (22:17)
[2021-10-03] MEDS: Doxazosin 4 MG Tablet 8 MG PO (22:17)
[2021-10-04 02:30] VITALS: BP 165/52; PULSE 85; RESP 18; TEMP 36.9; O2SAT 100
[2021-10-04 04:00] VITALS: PULSE 78
[2021-10-04 05:33] LABS: Absolute Lymphocyte Count 1.08 X10^3/uL (0.83-4.51); Absolute Neutrophil Count 2.9 X10^3/uL (2.0-7.7); Basophil# 0.01 X10^3/uL; Basophil% 0.2 % (0-1); Eosinophil# 0.08 X10^3/uL; Eosinophils% 1.8 % (0-5); Hematocrit 23.3 % (37-47); Hemoglobin 7.5 g/dL (12.0-15.0); Lymphocyte # 1.08 X10^3/ul (0.83-4.51); Lymphocyte % 23.7 % (19-41); Mean Corp Hgb Conc 32.2 g/dL (32-36); Mean Corpuscular Hgb 31.1 pg (27.0-32.0); Mean Corpuscular Volume 96.7 fL (81-99); Mean Platelet Vol. 10.4 fl (6.2-12.0); Monocyte# 0.48 X10^3/uL; Monocyte% 10.5 % (0-10); NRBC Flagged by Analyzer 0 % (0-5); Neutrophil # 2.86 X10^3/uL (2.7-7.7); Neutrophil % 62.9 % (47-70); Platelet Count 156 K/mm3 (150-450); RBC Distribution Width CV 17.7 % (11.6-14.6); RBC Distribution Width SD 62.5 fl (35.1-43.9); Red Blood Count 2.41 M/mm3 (4.2-5.4); White Blood Count 4.6 K/mm3 (4.4-11.0)
[2021-10-04 06:09] LABS: Anion Gap 4 (5-15); BUN 32 mg/dL (7-18); BUN/Creat Ratio 17.1 RATIO (10-20); Calcium,Total 8.6 mg/dL (8.5-10.1); Chloride 116 mmol/L (98-107); Creatinine, Serum 1.87 mg/dL (0.55-1.02); EST Glomerular Filtration Rate 27 mL/min (>60); Est Glom Filt Rate - Afr Amer 33 mL/min (>60); Glucose 95 mg/dL (74-106); Potassium 4.1 mmol/L (3.5-5.1); Sodium Level 142 mmol/L (136-145)
--- NOTE | 2021-10-04 07:38 | PCM.PN.HOSP ---
Subjective Subjective Patient seen kidney function continues to improve. Back to baseline. Plan is for patient to be discharged home with home health Objective Data Objective Data Vital Signs: Vital Signs Temp Pulse Resp BP Pulse Ox O2 Del Method O2 Flow Rate 98.4 F 78 18 165/52 H 100 Nasal Cannula 2 10/04/21 02:30 10/04/21 04:00 10/04/21 02:30 10/04/21 02:30 10/04/21 02:30 10/04/21 02:37 10/04/21 02:37 Oxygen Flow Rate (L/min) 2 Oxygen Delivery Method Nasal Cannula Weight: 83.915 kg Body Mass Index (BMI) 33.8 Intake & Output: Intake and Output for Last 24 Hours 10/02/21 10/03/21 10/04/21 23:59 23:59 23:59 Intake Total 2416.25 / 2416.25 2875.0 / 2875.0 200 / 200 Balance 2416.25 / 2416.25 2875.0 / 2875.0 200 / 200 Lab / Micro Data Result Diagrams: 10/04/21 05:19 10/04/21 05:19 Labs: Laboratory Results - last 24 hr 10/04/21 05:19: WBC 4.6, RBC 2.41 L, Hgb 7.5 L, Hct 23.3 L, MCV 96.7, MCH 31.1, MCHC 32.2, RDW Std Deviation 62.5 H, RDW Coeff of Yolanda 17.7 H, Plt Count 156, MPV 10.4, Immature Gran % (Auto) 0.900, Neut % (Auto) 62.9, Lymph % (Auto) 23.7, [place] % (Auto) 10.5 H, Eos % (Auto) 1.8, Baso % (Auto) 0.2, Absolute Neuts (auto) 2.9, Absolute Lymphs (auto) 1.08, Nucleated RBC % 0 10/04/21 05:19: Sodium 142, Potassium 4.1, Chloride 116 H, Carbon Dioxide 22.0, Anion Gap 4 L, BUN 32 H, Creatinine 1.87 H, Estim Creat Clear Calc 17.40, Est GFR (MDRD) Af Amer 33 L, Est GFR (MDRD) Non-Af 27 L, BUN/Creatinine Ratio 17.1, Glucose 95, Calcium 8.6 Physical Exam Narrative GENERAL: cooperative HEENT: Atraumatic; EYES; Anicteric, Normal Conjunctiva NECK; supple, normal thyroid, RESPIRATORY: Diminished to auscultation CARDIOVASCULAR: Regular S1 S2, GI: soft, normoactive bowel sounds, : No Renal angle tenderness; EXTREMITIES: No edema, no clubbing, MUSCULOSKELETAL: no muscle wasting NEURO: Awake; no lateralizing signs. SKIN: Bruises lower extremities PSYCH; Flat affect Assessment & Plan Assessment/Plan (1) History of cardiac murmur: (2) History of hypertension: (3) Sleep apnea: (4) Obesity (BMI 30-39.9): (5) Fall: (6) Acute on chronic renal failure: PLAN: Plan Patient is an 86-year-old lady admitted with multiple falls. Found to be anemic as well as with acute kidney injury and elevated potassium admitted for further inpatient management 1. Acute on chronic kidney disease stage IIIa ? Patient creatinine as of 03/07/2021 was 1.33 creatinine on admission was 4.05. Admitted to regular nursing floor. Patient started on IV fluid with monitoring of electrolytes.. Potential nephrotoxic medications including patient's diuretics and ARB held. As part of his management ordered renal duplex ? 10/03/2021 kidney function continues to improve 2. Hyperkalemia ? Due to combination of patient impaired kidney function as well as patient being on potassium supplementation patient potassium supplementation discontinued patient given Kayexalate with subsequent monitoring of potassium levels ordered. Patient currently being monitored on continuous telemetry ? 10/03/2021 hyperkalemia resolved 3. Frequent falls ? Requested for PT OT eval and web content & social media manager to assist with discharge planning 4. Chronic congestive heart failure with preserved ejection fraction ? Currently compensated 5. Essential hypertension ? Did continue with home meds 6. Obesity with BMI of 33.8 ? Weight loss advised 7. Obstructive sleep apnea ? On CPAP machine at night 8. Anemia - Secondary to chronic disorder monitoring H&H and transfuse if patient becomes symptomatic or hemoglobin falls below 7 9. Dyslipidemia -Patient is on statin therapy, continued at home dose 10. GERD ? Patient is on PPI did continue 11. Gout ? Patient is on allopurinol did continue 12. DVT prophylaxis ? SC heparin Charges/Coding Visit Charges Inpatient E&M: 97267 Subs Hosp L2
[2021-10-04 07:48] VITALS: BP 144/47; PULSE 72; RESP 16; TEMP 36.8; O2SAT 100
[2021-10-04] MEDS: Allopurinol 100 MG Tablet 200 MG PO (07:58)
[2021-10-04] MEDS: Aspirin 81 MG TAB.CHEW PO (07:58)
[2021-10-04 08:00] VITALS: O2SAT 100
--- NOTE | 2021-10-04 09:00 | PCM.DC.SUM ---
Providers Date of Admission: 10/01/21 Primary Care Physician: Dr. Davey Duarte MD Reason For Visit: ACUTE ON CHRONIC RENAL FAILURE- FREQUENT FALL Diagnosis Discharge Diagnosis (1) History of cardiac murmur: Status: Chronic Code(s): Z86.79 - Personal history of other diseases of the circulatory system (2) History of hypertension: Status: Chronic Code(s): Z86.79 - Personal history of other diseases of the circulatory system (3) Sleep apnea: Status: Acute Code(s): G47.30 - Sleep apnea, unspecified (4) Obesity (BMI 30-39.9): Status: Acute Code(s): E66.9 - Obesity, unspecified (5) Fall: Status: Acute Code(s): W19.XXXA - Unspecified fall, initial encounter (6) Acute on chronic renal failure: Status: Chronic Code(s): N17.9 - Acute kidney failure, unspecified; N18.9 - Chronic kidney disease, unspecified Plan Patient is an 86-year-old lady admitted with multiple falls. Found to be anemic as well as with acute kidney injury and elevated potassium admitted for further inpatient management 1. Acute on chronic kidney disease stage IIIa ? Patient creatinine as of 03/07/2021 was 1.33 creatinine on admission was 4.05. Admitted to regular nursing floor. Patient started on IV fluid with monitoring of electrolytes.. Potential nephrotoxic medications including patient's diuretics and ARB held. As part of his management ordered renal duplex ? 10/03/2021 kidney function continues to improve 2. Hyperkalemia ? Due to combination of patient impaired kidney function as well as patient being on potassium supplementation patient potassium supplementation discontinued patient given Kayexalate with subsequent monitoring of potassium levels ordered. Patient currently being monitored on continuous telemetry ? 10/03/2021 hyperkalemia resolved 3. Frequent falls ? Requested for PT OT eval and neonatal social worker to assist with discharge planning 4. Chronic congestive heart failure with preserved ejection fraction ? Currently compensated 5. Essential hypertension ? Did continue with home meds 6. Obesity with BMI of 33.8 ? Weight loss advised 7. Obstructive sleep apnea ? On CPAP machine at night 8. Anemia - Secondary to chronic disorder monitoring H&H and transfuse if patient becomes symptomatic or hemoglobin falls below 7 9. Dyslipidemia -Patient is on statin therapy, continued at home dose 10. GERD ? Patient is on PPI did continue 11. Gout ? Patient is on allopurinol did continue 12. DVT prophylaxis ? SC heparin Medications at Discharge Home Medications allopurinol 100 mg tablet 200 mg PO DAILY gout 10/24/14 aspirin 81 mg chewable tablet 81 mg PO DAILY@0800 heart health 10/24/14 atorvastatin 40 mg tablet 40 mg PO QHS cholesterol 10/24/14 cyanocobalamin (vitamin B-12) 1,000 mcg/mL injection solution 1,000 mcg IM Q30D vitamin 10/24/14 hydrocodone-acetaminophen 5-325mg 5mg-325mg 1 tab PO Q6H PRN PRN Pain 10/24/14 isosorbide mononitrate 30 mg tablet,extended release 24 hr 60 mg PO DAILY heart health 10/24/14 duloxetine 20 mg capsule,delayed release 40 mg PO DAILY mental health 10/13/19 hydrocortisone 2.5 % topical cream 1 applic topical BID PRN PRN Hemorrhoids 10/13/19 nitroglycerin 0.4 mg sublingual tablet 0.4 mg SL Q5M PRN CHEST PAIN 10/13/19 omeprazole 40 mg capsule,delayed release 40 mg PO DAILY reflux 10/13/19 pyridoxine (vitamin B6) 100 mg tablet 100 mg PO DAILY vitamin 10/13/19 labetalol 300 mg tablet 200 mg PO BID blood pressure 03/05/21 terazosin 10 mg capsule 10 mg PO QHS blood pressure 03/05/21 cholecalciferol (vitamin D3) 50 mcg (2,000 unit) capsule (Vitamin D3) 50 mcg PO DAILY 10/01/21 docusate sodium 100 mg capsule 100 mg PO BID 10/01/21 Hospital Course Summary of Care Provided Minutes Spent on Discharge: 35 Hospital Course: Patient is an 86-year-old lady admitted with multiple falls.? Found to be anemic as well as with acute kidney injury and elevated potassium admitted for further inpatient management 1.? Acute on chronic kidney disease stage IIIa ? Patient creatinine as of 03/07/2021 was 1.33 creatinine on admission was 4.05.? Admitted to regular nursing floor.? Patient started on IV fluid with monitoring of electrolytes..? Potential nephrotoxic medications including patient's diuretics and ARB held.? As part of his management ordered renal duplex ? 10/03/2021 kidney function continues to improve -10/04/2021 patient ARB and diuretics discontinued on discharge 2.? Hyperkalemia ? Due to combination of patient impaired kidney function as well as patient being on potassium supplementation patient potassium supplementation discontinued patient given Kayexalate with subsequent monitoring of potassium levels ordered.? Patient currently being monitored on continuous telemetry ? 10/03/2021 hyperkalemia resolved ? 10/04/2021 potassium supplementation discontinued on discharge 3.? Frequent falls ? Requested for PT OT eval and neonatal social worker to assist with discharge planning ? 10/04/2021 patient was discharged home with home PT 4.? Chronic congestive heart failure with preserved ejection fraction ? Currently compensated 5.? Essential hypertension ? Did continue with home meds 6.? Obesity with BMI of 33.8 ? Weight loss advised 7.? Obstructive sleep apnea ? On CPAP machine at night 8.? Anemia - Secondary to chronic disorder monitoring H&H and transfuse if patient becomes symptomatic or hemoglobin falls below? 7 9.? Dyslipidemia -Patient is on statin therapy, continued at home dose 10.? GERD ? Patient is on PPI did continue 11.? Gout ? Patient is on allopurinol did continue 12.? DVT prophylaxis ? SC heparin Physical Exam Narrative GENERAL: cooperative HEENT: Atraumatic; EYES; Anicteric, Normal Conjunctiva NECK; supple, normal thyroid, RESPIRATORY: Diminished to auscultation CARDIOVASCULAR: Regular S1 S2, GI: soft, normoactive bowel sounds, : No Renal angle tenderness; EXTREMITIES: No edema, no clubbing, MUSCULOSKELETAL: no muscle wasting NEURO: Awake; no lateralizing signs. SKIN: Bruises lower extremities PSYCH; Flat affect Weight / BMI Weight Weight: 83.915 kg Body Mass Index (BMI) 33.8 ABG / Lab / Microbiology Data Result Diagrams: 10/04/21 05:19 10/04/21 05:19 Laboratory: Laboratory Results - last 24 hr 10/04/21 05:19: WBC 4.6, RBC 2.41 L, Hgb 7.5 L, Hct 23.3 L, MCV 96.7, MCH 31.1, MCHC 32.2, RDW Std Deviation 62.5 H, RDW Coeff of Yolanda 17.7 H, Plt Count 156, MPV 10.4, Immature Gran % (Auto) 0.900, Neut % (Auto) 62.9, Lymph % (Auto) 23.7, Hudspeth % (Auto) 10.5 H, Eos % (Auto) 1.8, Baso % (Auto) 0.2, Absolute Neuts (auto) 2.9, Absolute Lymphs (auto) 1.08, Nucleated RBC % 0 10/04/21 05:19: Sodium 142, Potassium 4.1, Chloride 116 H, Carbon Dioxide 22.0, Anion Gap 4 L, BUN 32 H, Creatinine 1.87 H, Estim Creat Clear Calc 17.40, Est GFR (MDRD) Af Amer 33 L, Est GFR (MDRD) Non-Af 27 L, BUN/Creatinine Ratio 17.1, Glucose 95, Calcium 8.6 D/C Instructions Discharge Diet: No restrictions Discharge Activity: Return to Normal Activity Call your doctor if you observe: Fever of 101 or Higher, Shortness of breath, Fainting spells and Chest pain Meaningful Use Info Meaningful Use Diagnoses (Choose all that apply): None applicable Discharge Plan Admission Admit Date/Time: 10/01/21 23:04 Attending Provider: Franko Rose Primary Care Provider: Davey Duarte Consulting Providers: Jose Cortes Discharge Orders/Prescriptions Prescriptions: Continued atorvastatin 40 MG tablet 40 mg PO QHS hydrocodone-acetaminophen 1 TABLET tablet 1 tab PO Q6H PRN PRN (Reason: Pain) isosorbide mononitrate 30 MG tablet 60 mg PO DAILY allopurinol 100 MG tablet 200 mg PO DAILY cyanocobalamin (vitamin B-12) 1,000 MCG/ML solution 1,000 mcg IM Q30D aspirin 81 MG tablet,chewable 81 mg PO DAILY@0800 omeprazole 40 MG capsule,delayed release(DR/EC) 40 mg PO DAILY nitroglycerin 0.4 MG tablet, sublingual 0.4 mg SL Q5M PRN (Reason: CHEST PAIN) hydrocortisone 1 APPLIC cream 1 applic topical BID PRN PRN (Reason: Hemorrhoids) pyridoxine (vitamin B6) 100 MG tablet 100 mg PO DAILY duloxetine 20 MG capsule 40 mg PO DAILY labetalol 300 mg Tablet 200 mg PO BID terazosin 10 mg Capsule 10 mg PO QHS docusate sodium 100 mg Capsule 100 mg PO BID cholecalciferol (vitamin D3) [Vitamin D3] 50 mcg (2,000 unit) Capsule 50 mcg PO DAILY Discontinued irbesartan [Avapro] 300 mg Tablet 300 mg PO DAILY potassium chloride 20 mEq tablet,ER particles/crystals 20 tab PO QODAY furosemide 40 mg tablet 20 mg PO DAILY Referrals / Follow Up: Davey Duarte MD [Primary Care Provider] - Within 1 Week Disposition Disposition (needs filled in before D/C Order can be placed): Home Health Service Charges/Coding Visit Charges Inpatient E&M: 86614 Disch Hosp
[2021-10-04] MEDS: Heparin Injection (Vial) 5,000 UNIT/ML VIAL 5000 UNIT SC (11:06)
[2021-10-04] MEDS: DULoxetine Hcl 20 MG Capsule 40 MG PO (11:06)
[2021-10-04] MEDS: Docusate Sodium 100 MG Capsule PO (11:06)
[2021-10-04] MEDS: Pantoprazole Sodium 40 MG Tablet PO (11:07)
[2021-10-04] MEDS: Labetalol 100 MG Tablet 300 MG PO (11:07)
[2021-10-04] MEDS: Isosorbide Mononitrate 60 MG Tablet PO (11:07)
[2021-10-04] MEDS: Cholecalciferol (VIT D3) 25 MCG TABLET (1,000 UNITS) 50 MCG PO (11:07)
[2021-10-04] MEDS: Pyridoxine HCl 100 MG Tablet PO (11:08)
--- NOTE | 2021-10-04 11:42 | CASEMGMT ---
Tita at [facility] aware pt will dc today.
[2021-10-04 13:05] VITALS: O2SAT 90; O2SAT 98
--- NOTE | 2021-10-04 14:04 | CASEMGMT ---
Pt did not qualify for increase in current oxygen.
[2021-10-04 15:14] VITALS: BP 136/46; PULSE 64; RESP 16; TEMP 36.6; O2SAT 99
== END 2021-10-04 15:41 | disposition home health service (06) | DRG 683 ==
LOC: ED 21:15 → MS3 23:30
PROVIDERS: Admitting Provider Family Medicine; Emergency Provider Student in an Organized Health Care Education/Training Program; PCP Internal Medicine; Visit Provider Internal Medicine
DX: N17.9 Acute kidney failure, unspecified (principal); I13.0 Hypertensive heart and chronic kidney disease with heart failure and stage 1 through stage 4 chronic kidney disease, or unspecified chronic kidney disease; I50.32 Chronic diastolic (congestive) heart failure; N18.31 Chronic kidney disease, stage 3a; E87.5 Hyperkalemia; G47.30 Sleep apnea, unspecified; E78.5 Hyperlipidemia, unspecified; K21.9 Gastro-esophageal reflux disease without esophagitis; G47.33 Obstructive sleep apnea (adult) (pediatric); M10.9 Gout, unspecified; D64.9 Anemia, unspecified; E86.0 Dehydration; R29.6 Repeated falls; R53.1 Weakness; F32.A Depression, unspecified; E66.9 Obesity, unspecified; Z68.33 Body mass index [BMI] 33.0-33.9, adult; Z79.82 Long term (current) use of aspirin; Z79.899 Other long term (current) drug therapy; Z95.5 Presence of coronary angioplasty implant and graft
CPT/HCPCS: 36415; 70450; 71045; 72100; 72125; 76770; 80048; 81001; 83735; 83880; 84443; 84484; 85025; 93005; 97162; 97166; 97535; 97802; 99285; J7030; J7040; A4216

== ENCOUNTER → 2021-10-23 | Outpatient (CLI) | payer MEDICARE, OTHER, SELFPAY ==
[2021-10-23 15:21] LABS: Protein, Urine (Random) 22.3 mg/dL (<11.9); Protein:Creat Ratio 162 mg/g CRE (0-200)
[2021-10-23 15:32] LABS: Anion Gap 7 (5-15); BUN 15 mg/dL (7-18); BUN/Creat Ratio 11.5 RATIO (10-20); Calcium,Total 8.8 mg/dL (8.5-10.1); Chloride 113 mmol/L (98-107); Creatinine, Serum 1.31 mg/dL (0.55-1.02); EST Glomerular Filtration Rate 41 mL/min (>60); Est Glom Filt Rate - Afr Amer 50 mL/min (>60); Glucose 74 mg/dL (74-106); Potassium 4.3 mmol/L (3.5-5.1); Sodium Level 142 mmol/L (136-145)
== END | disposition home or self-care (01) ==
LOC: LAB 14:26
PROVIDERS: PCP Internal Medicine; Visit Provider Internal Medicine Nephrology
DX: N18.31 Chronic kidney disease, stage 3a (principal)
CPT/HCPCS: 36415; 80048; 82570; 84156

== ENCOUNTER 2021-10-27 09:50 | Outpatient (CLI) | payer MEDICARE, OTHER, SELFPAY ==
[2021-10-27] VITALS (10 sets, daily range): BP systolic 126–159; BP diastolic 46–80; PULSE 56–64; RESP 12–16; TEMP 36.4–36.9; O2SAT 96–100
== END 2021-10-27 16:46 | disposition home or self-care (01) ==
LOC: MEDOUTP 09:52 → PCU 09:53
PROVIDERS: PCP Internal Medicine; Visit Provider Internal Medicine
DX: N18.9 Chronic kidney disease, unspecified (principal); D63.1 Anemia in chronic kidney disease
CPT/HCPCS: 36415; 36430; 86850; 86900; 86901; 86920; 86922; J7040; P9016

== ENCOUNTER → 2022-04-24 | Outpatient (CLI) | payer MEDICARE, OTHER, SELFPAY ==
[2022-04-24 17:48] LABS: Anion Gap 6 (5-15); BUN 27 mg/dL (7-18); BUN/Creat Ratio 20.3 RATIO (10-20); Calcium,Total 9.4 mg/dL (8.5-10.1); Chloride 103 mmol/L (98-107); Creatinine, Serum 1.33 mg/dL (0.55-1.02); EST Glomerular Filtration Rate 40 mL/min (>60); Est Glom Filt Rate - Afr Amer 49 mL/min (>60); Glucose 103 mg/dL (74-106); Potassium 4.4 mmol/L (3.5-5.1); Sodium Level 138 mmol/L (136-145)
== END | disposition home or self-care (01) ==
PROVIDERS: PCP Internal Medicine; Visit Provider Internal Medicine Nephrology
DX: I12.9 Hypertensive chronic kidney disease with stage 1 through stage 4 chronic kidney disease, or unspecified chronic kidney disease (principal); N18.31 Chronic kidney disease, stage 3a
CPT/HCPCS: 36415; 80048

== ENCOUNTER → 2022-04-26 | Outpatient (CLI) | payer MEDICARE, OTHER, SELFPAY ==
[2022-04-26 16:30] LABS: Protein, Urine (Random) 10.4 mg/dL (<11.9); Protein:Creat Ratio 112 mg/g CRE (0-200)
== END | disposition home or self-care (01) ==
PROVIDERS: PCP Internal Medicine; Referring Provider Internal Medicine Nephrology; Visit Provider Internal Medicine Nephrology
DX: I12.9 Hypertensive chronic kidney disease with stage 1 through stage 4 chronic kidney disease, or unspecified chronic kidney disease (principal); N18.31 Chronic kidney disease, stage 3a
CPT/HCPCS: 82570; 84156

== ENCOUNTER → 2022-07-05 | Outpatient (CLI) | payer MEDICARE, OTHER, SELFPAY | END | disposition home or self-care (01) | LOC: SL 20:12 | PROVIDERS: PCP Internal Medicine; Referring Provider Psychiatry & Neurology Sleep Medicine; Visit Provider Psychiatry & Neurology Sleep Medicine | DX: G47.33 Obstructive sleep apnea (adult) (pediatric) (principal) | CPT/HCPCS: 95811 ==

== ENCOUNTER → 2022-08-26 | Outpatient (CLI) | payer MEDICARE, OTHER, SELFPAY | END | disposition home or self-care (01) | LOC: SL 20:05 | PROVIDERS: PCP Internal Medicine; Visit Provider Psychiatry & Neurology Sleep Medicine | DX: G47.33 Obstructive sleep apnea (adult) (pediatric) (principal) | CPT/HCPCS: 95811 ==

== ENCOUNTER → 2022-10-28 | Outpatient (CLI) | payer MEDICARE, OTHER, SELFPAY ==
[2022-10-28 17:19] LABS: Hematocrit 33.3 % (37-47); Hemoglobin 10.8 g/dL (12.0-15.0); Mean Corp Hgb Conc 32.4 g/dL (32-36); Mean Corpuscular Hgb 33.1 pg (27.0-32.0); Mean Corpuscular Volume 102.1 fL (81-99); Mean Platelet Vol. 9.8 fl (6.2-12.0); Platelet Count 173 K/mm3 (150-450); RBC Distribution Width CV 16.5 % (11.6-14.6); RBC Distribution Width SD 61.8 fl (35.1-43.9); Red Blood Count 3.26 M/mm3 (4.2-5.4); White Blood Count 5.5 K/mm3 (4.4-11.0)
[2022-10-28 18:17] LABS: Albumin, Serum 3.1 g/dL (3.2-5.0); BUN 22 mg/dL (7-18); BUN/Creat Ratio 15.6 RATIO (10-20); Calcium,Total 9.1 mg/dL (8.5-10.1); Chloride 107 mmol/L (98-107); Creatinine, Serum 1.41 mg/dL (0.55-1.02); EST Glomerular Filtration Rate 38 mL/min (>60); Est Glom Filt Rate - Afr Amer 46 mL/min (>60); Glucose 89 mg/dL (74-106); Potassium 4.7 mmol/L (3.5-5.1); Sodium Level 140 mmol/L (136-145)
[2022-10-28 18:22] LABS: Vitamin D,25 Hydroxy 39.4 ng/mL
[2022-10-29 08:50] LABS: PTHIN 118.4 pg/mL (18.4-80.1)
[2022-10-29 18:37] LABS: Protein, Urine (Random) 15.6 mg/dL (<11.9); Protein:Creat Ratio 337 mg/g CRE (0-200)
== END | disposition home or self-care (01) ==
LOC: LAB 16:53
PROVIDERS: PCP Internal Medicine; Referring Provider Internal Medicine Nephrology; Visit Provider Internal Medicine Nephrology
DX: N18.31 Chronic kidney disease, stage 3a (principal); N25.81 Secondary hyperparathyroidism of renal origin; R80.9 Proteinuria, unspecified; D63.1 Anemia in chronic kidney disease
CPT/HCPCS: 80069; 82306; 82570; 83970; 84156; 85027

== ENCOUNTER → 2023-04-23 | Outpatient (CLI) | payer MEDICARE, OTHER, SELFPAY ==
[2023-04-23 14:55] LABS: Hematocrit 32.8 % (37-47); Hemoglobin 10.5 g/dL (12.0-15.0); Mean Corpuscular Volume 103.1 fL (81-99); Mean Platelet Vol. 10.2 fl (6.2-12.0); Platelet Count 159 K/mm3 (150-450); RBC Distribution Width CV 16.6 % (11.6-14.6); RBC Distribution Width SD 63.3 fl (35.1-43.9); Red Blood Count 3.18 M/mm3 (4.2-5.4); White Blood Count 5.4 K/mm3 (4.4-11.0)
[2023-04-23 15:14] LABS: PTHIN 124.3 pg/mL (18.4-80.1)
[2023-04-23 15:15] LABS: BUN 21 mg/dL (7-18); BUN/Creat Ratio 16.7 RATIO (10-20); Calcium,Total 9.5 mg/dL (8.5-10.1); Chloride 107 mmol/L (98-107); Creatinine, Serum 1.26 mg/dL (0.55-1.02); EST Glomerular Filtration Rate 43 mL/min (>60); Est Glom Filt Rate - Afr Amer 52 mL/min (>60); Glucose 98 mg/dL (74-106); Phosphorus 2.8 mg/dL (2.5-4.9); Potassium 4.4 mmol/L (3.5-5.1); Sodium Level 138 mmol/L (136-145)
[2023-04-23 15:18] LABS: Vitamin D,25 Hydroxy 46.1 ng/mL
[2023-04-23 15:25] LABS: Microalbumin,Random Urine 58.5 mg/L (NO RANGE EST.); Protein:Creat Ratio 158 mg/g CRE (0-200)
== END | disposition home or self-care (01) ==
LOC: LAB 13:48
PROVIDERS: PCP Internal Medicine; Referring Provider Internal Medicine Nephrology; Visit Provider Internal Medicine Nephrology
DX: N18.31 Chronic kidney disease, stage 3a (principal); N25.81 Secondary hyperparathyroidism of renal origin; R80.9 Proteinuria, unspecified; D63.1 Anemia in chronic kidney disease
CPT/HCPCS: 36415; 80069; 82043; 82306; 82570; 83970; 84156; 85027

== ENCOUNTER 2023-11-05 11:55 | Emergency (ER) | payer MEDICARE, OTHER, SELFPAY ==
[2023-11-05 11:56] VITALS: BP 126/39; PULSE 66; RESP 18; TEMP 36.6; O2SAT 99
--- NOTE | 2023-11-05 12:11 | EX.ED.GENINJ ---
HPI History of Present Illness Chief Complaint: Other, Pain/Inj PFSH PFSH Medical History Hearing loss, left Hearing loss, right Rheumatoid arthritis Kidney disease On home oxygen therapy Hypertension Anxiety Depression Sleep apnea BiPAP (biphasic positive airway pressure) dependence Congestive heart failure (CHF) Hyperlipidemia Hypertension Home Medications ?Medication ?Instructions ?Recorded ?Last Taken ?Type allopurinol 100 mg tablet 200 mg PO DAILY gout 10/24/14 03/05/21 History aspirin 81 mg chewable tablet 81 mg PO DAILY@0800 heart health 10/24/14 03/05/21 History atorvastatin 40 mg tablet 40 mg PO QHS cholesterol 10/24/14 03/05/21 19:55 History cyanocobalamin (vitamin B-12) 1,000 mcg IM Q30D vitamin 10/24/14 Unknown History 1,000 mcg/mL injection solution hydrocodone-acetaminophen 5-325mg 1 tab PO Q6H PRN PRN Pain 10/24/14 03/05/21 19:57 History 5mg-325mg isosorbide mononitrate 30 mg 60 mg PO DAILY heart health 10/24/14 03/05/21 History tablet,extended release 24 hr duloxetine 20 mg capsule,delayed 40 mg PO DAILY mental health 10/13/19 03/05/21 History release hydrocortisone 2.5 % topical cream 1 applic topical BID PRN PRN 10/13/19 Unknown History Hemorrhoids nitroglycerin 0.4 mg sublingual 0.4 mg SL Q5M PRN CHEST PAIN 10/13/19 Unknown History tablet omeprazole 40 mg capsule,delayed 40 mg PO DAILY reflux 10/13/19 03/05/21 History release pyridoxine (vitamin B6) 100 mg 100 mg PO DAILY vitamin 10/13/19 03/05/21 History tablet labetalol 300 mg tablet 200 mg PO BID blood pressure 03/05/21 Unknown History terazosin 10 mg capsule 10 mg PO QHS blood pressure 03/05/21 Unknown History cholecalciferol (vitamin D3) 50 50 mcg PO DAILY 10/01/21 Unknown History mcg (2,000 unit) capsule (Vitamin D3) docusate sodium 100 mg capsule 100 mg PO BID 10/01/21 Unknown History Allergy/AdvReac Type Severity Reaction Status Date / Time GREG Inhibitors AdvReac Unknown Verified 11/05/23 11:56 carvedilol (From Coreg) AdvReac Unknown Verified 11/05/23 11:56 nifedipine (From Procardia) AdvReac Unknown Verified 11/05/23 11:56 simvastatin (From Zocor) AdvReac Unknown Verified 11/05/23 11:56 spironolactone AdvReac Unknown Verified 11/05/23 11:56 Family History no significant family his Surgical History History of hysterectomy History of appendectomy Social History (Updated 11/05/23 @ 12:30 by Alida Herron) household members: family and none housing: house Smoking Status: Never smoker substance use type: does not use EXAM Physical Exam Const Vital Signs: 11/05/23 11:56 Temperature 97.9 F Temperature Source Temporal Pulse Rate 66 Respiratory Rate 18 Blood Pressure 126/39 H Blood Pressure Mean 68 Pulse Ox 99 MDM MDM MDM Narrative Medical decision making narrative: HISTORY OF PRESENT ILLNESS: 88-year-old female Presents with neck pain that radiates to bilateral arms. This began last night. No she took a bike at 11 AM. REVIEW OF SYSTEMS: Pertinent positives: Neck pain Pertinent negatives: Loss of sensation, loss of movement in the upper extremities PHYSICAL EXAM: Nursing triage notes reviewed, Vital signs reviewed Constitutional: please see mdm HENT: MMM Eyes: Pupils equal round and reactive to light, Extraocular muscles intact, Neck: No stridor, no JVD, full neck ROM, TTP over lower cervical spine. Negative Spurling's test. Lungs: Clear to auscultation, No wheezing or rales. No increased work of breathing, no conversational dyspnea, no accessory muscle use, no nasal flaring. No respiratory distress noted Heart: Regular rate and rhythm, No murmurs, No rubs and No gallops, 2+ distal pulses (radial, femoral, posterior tibial) in all extremities Abdomen: Soft, there is no tenderness, rigidity, rebound or guarding, no obvious peritoneal signs, no palpable pulsatile abdominal masses, no auscultated abdominal bruit : No CVAT Extremities: No edema Neuro: Intact 5/5 strength with ok sign (median), intact finger abduction (ulnar) intact wrist extension (radial n). Intact sensation in the radial, ulnar, and median nerve distributions. Skin: No rash or lesions noted MEDICAL DECISION MAKING: Chief Complaint: Neck pain External records reviewed: Imaging reviewed: CT scan of the cervical spine from 2021 showed mild cervical kyphosis, subluxation of C3 on C4, narrowing of intervertebral disc spaces at C4-C7, osteophytic degenerative changes, posterior degenerative disks. Factors affecting care: Cervical radiculopathy Social determinants of health: Elderly History obtained from others: Patient's daughter Consults: none MDM Narrative: Patient was initially hemodynamically stable, afebrile and nontoxic-appearing. Exam with TTP over cervical spine. No bruising or other signs of trauma. Intact neurovascular exam in bilateral upper extremities. Negative Spurling's test. I considered the following differential diagnosis: Cervical discopathy, fracture dislocation of the neck, vascular injury to the neck carotid artery dissection for example ALL IMAGES (IF OBTAINED) HAVE BEEN PERSONALLY REVIEWED AND INTERPRETED BY MYSELF. CT scan cervical spine shows degenerative changes. Patient's presentation is likely related to cervical radiculopathy. Will give steroids, muscle relaxers and instructed to follow with pain management. The patient and/or family, caregivers express understanding. The patient and/or family, caregivers agrees with the plan. Shared decision making: I will have a discussion with the patient and or visitors regarding risk/benefits of further testing or admission. They will be made aware of of the risk/benefits inherent in this decision they will be given the opportunity to voice understanding. Total critical care time today provided was at least 0 minutes. This excludes separately billable procedures. Critical care time (if documented) is secondary to the patient having high probability of clinically significant/life threatening deterioration in the patient's condition which required my urgent intervention. Impression: 1. Neck pain 2. Cervical radiculopathy Dispo: Discharge home This note was generated with [employer] dictation software. It may contain incorrect words, spelling, and punctuation that were not noted in review of the chart prior to signing. Radiography Diagnostic Testing: Clinical Impression(s) from Imaging Studies Cervical Spine CT 11/05/23 12:36 IMPRESSION: No evidence of acute cervical spinal fracture or spondylolisthesis. Multilevel degenerative changes. Electronically Signed: Major Polo MD at 13:27 EDT , Discharge Plan Triage Chief Complaint: Other, Pain/Inj ED Provider: Dileep Galaviz Dx/Rx/DC Orders Prescriptions: No Action atorvastatin 40 MG tablet 40 mg PO QHS hydrocodone-acetaminophen 1 TABLET tablet 1 tab PO Q6H PRN PRN (Reason: Pain) isosorbide mononitrate 30 MG tablet 60 mg PO DAILY allopurinol 100 MG tablet 200 mg PO DAILY cyanocobalamin (vitamin B-12) 1,000 MCG/ML solution 1,000 mcg IM Q30D aspirin 81 MG tablet,chewable 81 mg PO DAILY@0800 omeprazole 40 MG capsule,delayed release(DR/EC) 40 mg PO DAILY nitroglycerin 0.4 MG tablet, sublingual 0.4 mg SL Q5M PRN (Reason: CHEST PAIN) hydrocortisone 1 APPLIC cream 1 applic topical BID PRN PRN (Reason: Hemorrhoids) pyridoxine (vitamin B6) 100 MG tablet 100 mg PO DAILY duloxetine 20 MG capsule 40 mg PO DAILY labetalol 300 mg Tablet 200 mg PO BID terazosin 10 mg Capsule 10 mg PO QHS docusate sodium 100 mg Capsule 100 mg PO BID cholecalciferol (vitamin D3) [Vitamin D3] 50 mcg (2,000 unit) Capsule 50 mcg PO DAILY Primary Care Provider: Davey Duarte Referrals: Davey Duarte MD [Primary Care Provider] - Print Language: Tongan
--- NOTE | 2023-11-05 12:36 | CT_ITS ---
INDICATION: neck pain EXAMINATION: CT CERVICAL SPINE - CT Spine Cervical W/O Contrast Injection TECHNIQUE: Helically acquired images were obtained of the cervical spine. 2D reformatted images were reviewed. The protocol utilizes one or more of the following dose reduction techniques: automated exposure control, adjustment of mA and/or kV according to patient size,and/or use of iterative reconstruction technique. IV Contrast dosage and agent: None. RADIATION DOSAGE (If Supplied By Facility): CTDIvol = ( 16.95 ) mGy, DLP = ( 324.48 ) mGycm COMPARISON: Prior study dated: 10/01/2021 FINDINGS: VERTEBRAE: No fracture or traumatic subluxation. No discrete lytic or blastic abnormality. Normal alignment. Normal craniocervical junction and cervicothoracic junction. DISCS and SPINAL CANAL: Degenerative changes of the atlantoaxial joint. Severe narrowing of C4-C5 and to lesser extent C5-C6 and C6-C7 disc spaces. Posterior lateral degenerative spurs with mild narrowing of the neural foramina at the level of C5-C6. Endplate spondylosis. Degenerative changes of the apophyseal joints at multiple levels. Small calcification posterior to the thecal sac on the right side at the level of C3-C4 could be due to dural calcifications or calcification of ligamenta flava. NECK SOFT TISSUES: No prevertebral soft tissue swelling. Atherosclerotic calcifications of the carotid arteries bilaterally. LUNG APICES: Clear. CT/Spine Cervical without Contras IMPRESSION: No evidence of acute cervical spinal fracture or spondylolisthesis. Multilevel degenerative changes. Electronically Signed: Major Polo MD at 13:27 EDT ,
[2023-11-05] MEDS: Orphenadrine 60 MG/2 ML Ampul IM (12:44)
[2023-11-05] MEDS: Ibuprofen 200 MG Tablet 400 MG PO (12:44)
[2023-11-05] MEDS: Acetaminophen 325 MG Tablet 650 MG PO (12:44)
[2023-11-05] MEDS: predniSONE 20 MG Tablet 40 MG PO (12:45)
[2023-11-05] MEDS: Lidocaine 5% Patch 1 PATCH TOPICAL (12:45)
[2023-11-05 12:52] VITALS: BMI 30.7
[2023-11-05 13:45] VITALS: BP 126/39; PULSE 68; RESP 17; TEMP 36.6; O2SAT 99
== END 2023-11-05 14:05 | disposition home or self-care (01) ==
PROVIDERS: Emergency Provider Emergency Medicine; PCP Internal Medicine; Visit Provider Emergency Medicine
DX: M47.22 Other spondylosis with radiculopathy, cervical region (principal); I11.0 Hypertensive heart disease with heart failure; I50.9 Heart failure, unspecified; G47.30 Sleep apnea, unspecified
CPT/HCPCS: 72125; 96372; 99284

== ENCOUNTER 2024-03-17 19:16 | Emergency (ER) | payer MEDICARE, OTHER, SELFPAY ==
[2024-03-17 19:17] VITALS: BP 178/57; PULSE 69; RESP 18; TEMP 36.5; O2SAT 100
--- NOTE | 2024-03-17 19:44 | RAD_ITS ---
EXAM: XR RIGHT HAND COMPLETE, 3 OR MORE VIEWS CLINICAL INDICATION: infection TECHNIQUE: Frontal, lateral and oblique views of the right hand. COMPARISON: Right forearm on the same date. FINDINGS: BONES/JOINTS: Diffuse metacarpal phalangeal joint and interphalangeal joint degenerative changes throughout the hand characterized by joint space narrowing and proliferative osseous changes. No acute fracture. No subluxation. Normal alignment. No sclerotic or destructive changes observed. SOFT TISSUES: Diffuse soft tissue swelling. No radiopaque foreign body. VASCULATURE: Vascular calcifications. RAD/Hand Min 3 Views IMPRESSION: Diffuse soft tissue swelling. No evidence of acute osseous abnormalities. Electronically Signed: Eyad Godinez DO at 20:28 EST ,
--- NOTE | 2024-03-17 19:49 | EDS_ITS ---
HPI History of Present Illness Chief Complaint: Bite Informant: patient and family Narrative Narrative: Here with daughter dog bite right hand 4 days ago. She has small show while well, she reports dog's leg was caught in harness she is trying to help and out when she got bit. Dog receives vaccinations. Unclear when her last tetanus however discussed her PCP has a good log of it. No fever or chills. No history of diabetes. Swelling has been consistent however reported by daughter redness has increased. Pain of the forearm. History of chronic back pain took home [place] at 6:30 PM. Prior similar symptoms: No ROS ROS ED Constitutional Constitutional ED: Denies chills, fever(s) or sweats ENT ENT ED: Denies sore throat Cardiovascular Cardiovascular: Denies chest pain, leg edema, palpitations or racing heartbeat Respiratory/Chest Respiratory/Chest: Denies cough, dyspnea or dyspnea on exertion Gastrointestinal Gastrointestinal: Denies abdominal pain, diarrhea, nausea or vomiting Genitourinary Genitourinary ED: Denies dysuria, hematuria or urinary frequency Musculoskeletal Musculoskeletal: Reports extremity pain; Denies back pain or neck pain Integumentary Reports wounds; Denies rash Neurologic Neurologic: Denies headache(s), paresthesias or weakness PFSH PFSH Medical History Hearing loss, left Hearing loss, right Rheumatoid arthritis Kidney disease On home oxygen therapy Hypertension Anxiety Depression Sleep apnea BiPAP (biphasic positive airway pressure) dependence Congestive heart failure (CHF) Hyperlipidemia Hypertension Home Medications ?Medication ?Instructions ?Recorded ?Last Taken ?Type allopurinol 100 mg tablet 200 mg PO DAILY gout 10/24/14 03/05/21 History aspirin 81 mg chewable tablet 81 mg PO DAILY@0800 heart health 10/24/14 03/05/21 History atorvastatin 40 mg tablet 40 mg PO QHS cholesterol 10/24/14 03/05/21 19:55 History cyanocobalamin (vitamin B-12) 1,000 mcg IM Q30D vitamin 10/24/14 Unknown History 1,000 mcg/mL injection solution hydrocodone-acetaminophen 5-325mg 1 tab PO Q6H PRN PRN Pain 10/24/14 03/05/21 19:57 History 5mg-325mg isosorbide mononitrate 30 mg 60 mg PO DAILY heart health 10/24/14 03/05/21 History tablet,extended release 24 hr duloxetine 20 mg capsule,delayed 40 mg PO DAILY mental health 10/13/19 03/05/21 History release hydrocortisone 2.5 % topical cream 1 applic topical BID PRN PRN 10/13/19 Unknown History Hemorrhoids nitroglycerin 0.4 mg sublingual 0.4 mg SL Q5M PRN CHEST PAIN 10/13/19 Unknown History tablet omeprazole 40 mg capsule,delayed 40 mg PO DAILY reflux 10/13/19 03/05/21 History release pyridoxine (vitamin B6) 100 mg 100 mg PO DAILY vitamin 10/13/19 03/05/21 History tablet labetalol 300 mg tablet 200 mg PO BID blood pressure 03/05/21 Unknown History terazosin 10 mg capsule 10 mg PO QHS blood pressure 03/05/21 Unknown History cholecalciferol (vitamin D3) 50 50 mcg PO DAILY 10/01/21 Unknown History mcg (2,000 unit) capsule (Vitamin D3) docusate sodium 100 mg capsule 100 mg PO BID 10/01/21 Unknown History orphenadrine citrate 100 mg 100 mg PO BID PRN neck pain 5 days 11/05/23 Unknown Rx tablet,extended release #10 tabs prednisone 20 mg tablet 20 mg PO DAILY 5 days #5 tabs 11/05/23 Unknown Rx amoxicillin 875 mg-potassium 875 mg PO Q12H #14 TABLETS 03/17/24 Unknown Rx clavulanate 125 mg tablet Allergy/AdvReac Type Severity Reaction Status Date / Time GREG Inhibitors AdvReac Unknown Verified 03/17/24 19:17 carvedilol (From Coreg) AdvReac Unknown Verified 03/17/24 19:17 nifedipine (From Procardia) AdvReac Unknown Verified 03/17/24 19:17 simvastatin (From Zocor) AdvReac Unknown Verified 03/17/24 19:17 spironolactone AdvReac Unknown Verified 03/17/24 19:17 Surgical History History of hysterectomy History of appendectomy Social History household members: family and none housing: house Smoking Status: Never smoker substance use type: does not use EXAM Physical Exam Const Vital Signs: 03/17/24 19:17 12/25/24 21:17 03/17/24 22:09 Temperature 97.7 F L 97.2 F L Temperature Source Temporal Pulse Rate 69 62 67 Respiratory Rate 18 16 16 Blood Pressure 178/57 H 155/54 H 165/48 H Blood Pressure Mean 97 87 87 Pulse Ox 100 95 95 Positive well nourished and well developed General Appearance ED: well developed and NAD HEENT Reports moist mucous membranes normocephalic and atraumatic Eyes General Eye ED: Yes normal appearance of both eyes Neck full ROM Chest Wall Chest: Negative for tenderness Resp normal respiratory effort and normal air movement Effort and Inspection: symmetric chest movement; Negative for respiratory distress Cardio regular rate, regular rhythm and no murmurs Peripheral Pulses: pulses 2+ throughout GI normal to inspection, nondistended, normoactive bowel sounds and non-tender Palpation: Negative for guarding or rebound tenderness present Extremity Extremity Narrative: Right upper extremity: Dorsal hand swelling there is erythema to the dorsal hand there is healing puncture wounds distal hand with no active drainage. Tender palpation there is no crepitus. Redness progressed up the forearm near the elbow scattered. No streaking up the arm there is no axillary lymphadenopathy. General Extremety ED: Yes edema and tenderness General Extremity: edema Neuro oriented x3 and no sensory deficits noted Sensorium / Orientation: awake and alert Skin no rashes or lesions noted and no wounds MDM MDM MDM Narrative Medical decision making narrative: Interventions / MDM: Differential diagnosis: Dog bite right hand, right upper extremity cellulitis Diagnosis considered but do not suspect: N/A My EKG interpretation: N/A Imaging independently reviewed and interpreted by myself: 3 view right hand: Soft tissue swelling no soft tissue gas: 2 view right forearm: Soft tissue swelling no soft tissue gas External documents reviewed: N/A Test considered but not ordered:N/A ED course: Patient nontoxic afebrile progressive redness over 4 days of swelling dorsal hand. Will check labs and blood culture. X-ray right hand forearm ordered. Will start Unasyn. Erythema was outlined. Reevaluation white count normal 8.6 normal ESR slightly elevated CRP of 22. X- rays soft tissue swelling. She was given Unasyn. She is nontoxic. She is not a diabetic. Considered admission however shared decision made with the patient. She would like to go home with Augmentin. Strict return precautions. She has [place] at home to use for her back pain. All questions were answered. Re-evaluation: stable Disposition discussed with patient/family/significant other: Patient and daughter Case discussed with consulting clinician: N/A This note was generated with [employer] dictation software. It may contain incorrect words, spelling, and punctuation that were not noted in checking the note before signing. Lab Data Labs: Laboratory Results - last 24 hr 03/17/24 20:00 WBC 8.6 RBC 3.09 L Hgb 10.1 L Hct 31.2 L MCV 101.0 H MCH 32.7 H MCHC 32.4 RDW Std Deviation 59.1 H RDW Coeff of Yolanda 15.9 H Plt Count 148 L MPV 10.2 Immature Gran % (Auto) 0.600 Neut % (Auto) 76.9 H Lymph % (Auto) 9.1 L [place] % (Auto) 11.9 H Eos % (Auto) 1.3 Baso % (Auto) 0.2 Absolute Neuts (auto) 6.6 Absolute Lymphs (auto) 0.78 L Nucleated RBC % 0 ESR 9 Sodium 136 Potassium 3.9 Chloride 104 Carbon Dioxide 28.0 Anion Gap 5 BUN 47 H Creatinine 1.73 H Estim Creat Clear Calc 22.23 Est GFR (MDRD) Af Amer 36 L Est GFR (MDRD) Non-Af 30 L BUN/Creatinine Ratio 27.2 H Glucose 104 Calcium 9.3 C-React Prot Ext Range 22.10 H Radiography Diagnostic Testing: Clinical Impression(s) from Imaging Studies Hand X-Ray 03/17/24 19:44 IMPRESSION: Diffuse soft tissue swelling. No evidence of acute osseous abnormalities. Electronically Signed: Eyad Godinez, at 20:28 EST , Forearm X-Ray 03/17/24 20:10 IMPRESSION: Soft tissue swelling. No acute osseous abnormalities or foreign body. Electronically Signed: Eyad GodinezDO at 20:29 EST , Discharge Plan Triage Chief Complaint: Bite ED Provider: Mikey Vu Dx/Rx/DC Orders Clinical Impression: Dog bite, Cellulitis of right hand Instructions: ED Cellulitis, ED Dog Bite Prescriptions: New amoxicillin-pot clavulanate 875-125 mg tablet 875 mg PO Q12H Qty: 14 0RF No Action atorvastatin 40 MG tablet 40 mg PO QHS hydrocodone-acetaminophen 1 TABLET tablet 1 tab PO Q6H PRN PRN (Reason: Pain) isosorbide mononitrate 30 MG tablet 60 mg PO DAILY allopurinol 100 MG tablet 200 mg PO DAILY cyanocobalamin (vitamin B-12) 1,000 MCG/ML solution 1,000 mcg IM Q30D aspirin 81 MG tablet,chewable 81 mg PO DAILY@0800 omeprazole 40 MG capsule,delayed release(DR/EC) 40 mg PO DAILY nitroglycerin 0.4 MG tablet, sublingual 0.4 mg SL Q5M PRN (Reason: CHEST PAIN) hydrocortisone 1 APPLIC cream 1 applic topical BID PRN PRN (Reason: Hemorrhoids) pyridoxine (vitamin B6) 100 MG tablet 100 mg PO DAILY duloxetine 20 MG capsule 40 mg PO DAILY labetalol 300 mg Tablet 200 mg PO BID terazosin 10 mg Capsule 10 mg PO QHS docusate sodium 100 mg Capsule 100 mg PO BID cholecalciferol (vitamin D3) [Vitamin D3] 50 mcg (2,000 unit) Capsule 50 mcg PO DAILY orphenadrine citrate 100 mg tablet extended release 100 mg PO BID PRN (Reason: neck pain) 5 Days Qty: 10 0RF prednisone 20 mg tablet 20 mg PO DAILY 5 Days Qty: 5 0RF Primary Care Provider: Davey Duarte Referrals: Davey Duarte MD [Primary Care Provider] - 3-5 Days Activity Restrictions/Additional Instructions: X-ray soft tissue swelling. Labs normal white count. CRP up at 22. Status post Unasyn. Take Augmentin as prescribed. Monitor symptoms worsen return to the ED otherwise follow-up with your doctor. Print Language: [place] Leonean Disposition Disposition: Home, Self Care Discharge Date/Time: 03/17/24 22:16
--- NOTE | 2024-03-17 20:10 | RAD_ITS ---
EXAM: XR RIGHT FOREARM, 2 VIEWS CLINICAL INDICATION: infection TECHNIQUE: Frontal and lateral views of the right forearm. COMPARISON: Hand on the same date. FINDINGS: BONES/JOINTS: No significant abnormality. No acute fracture. No dislocation. SOFT TISSUES: Soft tissue swelling. VASCULATURE: Vasculature calcifications. RAD/Forearm 2 Views IMPRESSION: Soft tissue swelling. No acute osseous abnormalities or foreign body. Electronically Signed: Eyad Godinez DO at 20:29 EST ,
[2024-03-17 20:15] VITALS: BMI 31.6
[2024-03-17 20:15] LABS: Absolute Lymphocyte Count 0.78 X10^3/uL (0.83-4.51); Absolute Neutrophil Count 6.6 X10^3/uL (2.0-7.7); Basophil# 0.02 X10^3/uL; Basophil% 0.2 % (0-1); Eosinophil# 0.11 X10^3/uL; Eosinophils% 1.3 % (0-5); Hematocrit 31.2 % (37-47); Hemoglobin 10.1 g/dL (12.0-15.0); Lymphocyte # 0.78 X10^3/ul (0.83-4.51); Lymphocyte % 9.1 % (19-41); Mean Corp Hgb Conc 32.4 g/dL (32-36); Mean Corpuscular Hgb 32.7 pg (27.0-32.0); Mean Platelet Vol. 10.2 fl (6.2-12.0); Monocyte# 1.02 X10^3/uL; Monocyte% 11.9 % (0-10); NRBC Flagged by Analyzer 0 % (0-5); Neutrophil # 6.61 X10^3/uL (2.7-7.7); Neutrophil % 76.9 % (47-70); Platelet Count 148 K/mm3 (150-450); RBC Distribution Width CV 15.9 % (11.6-14.6); RBC Distribution Width SD 59.1 fl (35.1-43.9); Red Blood Count 3.09 M/mm3 (4.2-5.4); White Blood Count 8.6 K/mm3 (4.4-11.0)
[2024-03-17 20:17] LABS: Erythrocyte Sedimentation Rate 9 mm/hr (0-30)
[2024-03-17] MEDS: Ampicillin/Sulbactam 3 GM in 0.9% Normal Saline (100mL MB+) 100 ML IV (20:19)
[2024-03-17 20:42] LABS: Anion Gap 5 (5-15); BUN 47 mg/dL (7-18); BUN/Creat Ratio 27.2 RATIO (10-20); Calcium,Total 9.3 mg/dL (8.5-10.1); Chloride 104 mmol/L (98-107); Creatinine, Serum 1.73 mg/dL (0.55-1.02); EST Glomerular Filtration Rate 30 mL/min (>60); Est Glom Filt Rate - Afr Amer 36 mL/min (>60); Estimated Creatinine Clearance 22.23 ml/min; Glucose 104 mg/dL (74-106); Potassium 3.9 mmol/L (3.5-5.1); Sodium Level 136 mmol/L (136-145)
[2024-03-17 21:17] VITALS: BP 155/54; PULSE 62; RESP 16; O2SAT 95
[2024-03-17 22:09] VITALS: BP 165/48; PULSE 67; RESP 16; TEMP 36.2; O2SAT 95
== END 2024-03-17 22:16 | disposition home or self-care (01) ==
PROVIDERS: Emergency Provider Emergency Medicine; PCP Internal Medicine; Visit Provider Emergency Medicine
DX: S61.451A Open bite of right hand, initial encounter (principal); I11.0 Hypertensive heart disease with heart failure; I50.9 Heart failure, unspecified; E78.5 Hyperlipidemia, unspecified; M54.9 Dorsalgia, unspecified; L03.113 Cellulitis of right upper limb; Z90.710 Acquired absence of both cervix and uterus; G47.30 Sleep apnea, unspecified; Z99.81 Dependence on supplemental oxygen; Z79.82 Long term (current) use of aspirin; Z79.899 Other long term (current) drug therapy; F41.9 Anxiety disorder, unspecified; F32.A Depression, unspecified; Z90.49 Acquired absence of other specified parts of digestive tract; W54.0XXA Bitten by dog, initial encounter; Y93.89 Activity, other specified
CPT/HCPCS: 73090; 73130; 80048; 85025; 85652; 86140; 87040; 96365; 96366; 99284; A4216; J0295

== ENCOUNTER 2024-03-21 16:55 | Inpatient (IN) | payer MEDICARE, OTHER, SELFPAY ==
[2024-03-21 16:56] VITALS: BP 188/157; PULSE 79; RESP 18; TEMP 36.8; O2SAT 95
[2024-03-21 17:03] VITALS: BP 188/157; PULSE 79; RESP 18; TEMP 36.8; O2SAT 95
--- NOTE | 2024-03-21 17:16 | EX.ED.DYSGE1 ---
HPI <CLARE Taveras - Last Filed: 03/21/24 18:46> History of Present Illness Chief Complaint: Bite Narrative Narrative: 88-year-old female was bitten by her dog in the right hand about 1 week ago. Dog shots are up-to-date. She was seen here on and had blood work and an x-ray and was prescribed Augmentin. 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 The area on her hand over the bite has continued to swell and now has an opening with yellow drainage and the redness has progressed up her arm. She has significant pain in the hand. She is right-hand dominant. No fever or chills. PFSH <CLARE Taveras - Last Filed: 03/21/24 18:46> [facility] Medical History Hearing loss, left Hearing loss, right Rheumatoid arthritis Kidney disease On home oxygen therapy Hypertension Anxiety Depression Sleep apnea BiPAP (biphasic positive airway pressure) dependence Congestive heart failure (CHF) Hyperlipidemia Hypertension Home Medications ?Medication ?Instructions ?Recorded ?Last Taken ?Type allopurinol 100 mg tablet 200 mg PO DAILY gout 10/24/14 03/05/21 History aspirin 81 mg chewable tablet 81 mg PO DAILY@0800 heart health 10/24/14 03/05/21 History atorvastatin 40 mg tablet 40 mg PO QHS cholesterol 10/24/14 03/05/21 19:55 History hydrocodone-acetaminophen 5-325mg 1 tab PO Q6H PRN PRN Pain 10/24/14 03/05/21 19:57 History 5mg-325mg isosorbide mononitrate 30 mg 60 mg PO DAILY heart health 10/24/14 03/05/21 History tablet,extended release 24 hr duloxetine 20 mg capsule,delayed 40 mg PO DAILY mental health 10/13/19 03/05/21 History release nitroglycerin 0.4 mg sublingual 0.4 mg SL Q5M PRN CHEST PAIN 10/13/19 Unknown History tablet omeprazole 40 mg capsule,delayed 40 mg PO DAILY reflux 10/13/19 03/05/21 History release pyridoxine (vitamin B6) 100 mg 100 mg PO DAILY vitamin 10/13/19 03/05/21 History tablet labetalol 300 mg tablet 200 mg PO BID blood pressure 03/05/21 Unknown History terazosin 10 mg capsule 10 mg PO QHS blood pressure 03/05/21 Unknown History cholecalciferol (vitamin D3) 50 50 mcg PO DAILY 10/01/21 Unknown History mcg (2,000 unit) capsule (Vitamin D3) docusate sodium 100 mg capsule 100 mg PO BID 10/01/21 Unknown History irbesartan 300 mg tablet 300 mg PO DAILY 03/21/24 Unknown History memantine 10 mg tablet 10 mg PO BID 03/21/24 Unknown History Allergy/AdvReac Type Severity Reaction Status Date / Time GREG Inhibitors AdvReac Unknown Verified 03/21/24 16:55 carvedilol (From Coreg) AdvReac Unknown Verified 03/21/24 16:55 nifedipine (From Procardia) AdvReac Unknown Verified 03/21/24 16:55 simvastatin (From Zocor) AdvReac Unknown Verified 03/21/24 16:55 spironolactone AdvReac Unknown Verified 03/21/24 16:55 Surgical History History of hysterectomy History of appendectomy Social History household members: family and none housing: house Smoking Status: Never smoker substance use type: does not use ROS <CLARE Taveras - Last Filed: 03/21/24 18:46> ROS ED ROS Narrative Constitutional: Negative for fever, chills, malaise. GI: Negative for nausea, vomiting. Neuro: Negative for motor/sensory dysfunction. Skin: Positive for redness/dog bite wound. Musc: Positive for right hand pain. EXAM <CLARE Taveras - Last Filed: 03/21/24 18:46> Physical Exam Narrative Exam Narrative: CONST: Patient sitting in no acute distress. EYES: Normal inspection. NECK: Normal inspection. RESP: No respiratory distress, CTAB. CVS: Regular rate and rhythm, no murmur, no gallop. EXTREMITIES: Right dorsal hand has significant soft tissue swelling and erythema, opening on the dorsal lateral aspect from the dog bite is draining a small amount of yellow purulent fluid. There is erythema and warmth without edema extending up to the level of the elbow. She has limited range of motion of the digits secondary to pain and swelling. Normal sensation, 2+ radial pulse and brisk cap refill throughout. NEURO: Alert and answering questions appropriately. PSYCH: Normal affect. Const Vital Signs: 03/21/24 16:56 03/21/24 17:03 03/21/24 18:02 Temperature 98.3 F 98.3 F 98.0 F Temperature Source Oral Temporal Temporal Pulse Rate 79 79 75 Respiratory Rate 18 18 16 Blood Pressure 188/157 H 188/157 H 126/63 H Blood Pressure Mean 167 167 84 Pulse Ox 95 95 94 Oxygen Delivery Method Room Air Room Air Room Air <Dr. Cam Aguilera DO - Last Filed: 03/21/24 20:14> Physical Exam Const Vital Signs: 03/21/24 16:56 03/21/24 17:03 03/21/24 18:02 Temperature 98.3 F 98.3 F 98.0 F Temperature Source Oral Temporal Temporal Pulse Rate 79 79 75 Respiratory Rate 18 18 16 Blood Pressure 188/157 H 188/157 H 126/63 H Blood Pressure Mean 167 167 84 Pulse Ox 95 95 94 Oxygen Delivery Method Room Air Room Air Room Air MDM <CLARE Taveras - Last Filed: 03/21/24 18:46> [facility] Narrative Medical decision making narrative: History gathered from: Patient, daughter Differential: Cellulitis, abscess, osteomyelitis Consults: Hospitalist Patient was bitten on her right hand by her dog a week ago. She has been on oral antibiotics for 3 days and has worsening soft tissue swelling of the hand and the puncture wound has enlarged with yellow drainage. She also has erythema extending up the arm. She appears well and nontoxic and is afebrile and hemodynamically stable. Her dorsal hand looks concerning for an abscess. There is cellulitis up to the level of the elbow. Extremity is neurovascularly intact. Labs overall look stable with white count of 8.1, ESR 20, downtrending CRP at 13.3. Lactate is 2.6. She baseline renal insufficiency with creatinine of 1.81. X-ray shows no acute findings. I anesthetized the area around the dog bite with 1% lidocaine and used an 11 blade scalpel to enlarge the opening. I explored the area with curved hemostats. There was a droplet of pus on the surface of the wound but only bloody drainage after opening. Blood cultures were drawn and she was started on vancomycin and Zosyn. She failed outpatient biotics and with the extent of cellulitis requires admission. I discussed the case with the hospitalist for admission. Lab Data Attestation: I reviewed the patient's lab results. Labs: Laboratory Results - last 24 hr 03/21/24 17:27 WBC 8.1 RBC 3.10 L Hgb 10.2 L Hct 31.5 L MCV 101.6 H MCH 32.9 H MCHC 32.4 RDW Std Deviation 58.9 H RDW Coeff of Yolanda 15.7 H Plt Count 176 MPV 9.7 Immature Gran % (Auto) 0.600 Neut % (Auto) 77.6 H Lymph % (Auto) 11.7 L [place] % (Auto) 7.8 Eos % (Auto) 1.9 Baso % (Auto) 0.4 Absolute Neuts (auto) 6.3 Absolute Lymphs (auto) 0.94 Nucleated RBC % 0 ESR 20 Sodium 139 Potassium 4.1 Chloride 105 Carbon Dioxide 25.0 Anion Gap 9 BUN 37 H Creatinine 1.81 H Estim Creat Clear Calc 20.60 Est GFR (MDRD) Af Amer 34 L Est GFR (MDRD) Non-Af 28 L BUN/Creatinine Ratio 20.4 H Glucose 113 H Lactic Acid 2.6 H* Calcium 9.6 C-React Prot Ext Range 13.30 H Radiography Diagnostic Testing: Clinical Impression(s) from Imaging Studies Hand X-Ray 03/21/24 17:40 IMPRESSION: Diffuse soft tissue swelling around the hand. Electronically Signed: Ramiro Spangler MD at 18:14 EST , ED attending interpretation of right hand x-ray shows soft tissue swelling, no acute Osseous changes. <Dr. Cam Aguilera, DO - Last Filed: 03/21/24 20:14> [facility] Lab Data Labs: Laboratory Results - last 24 hr 03/21/24 17:27 WBC 8.1 RBC 3.10 L Hgb 10.2 L Hct 31.5 L MCV 101.6 H MCH 32.9 H MCHC 32.4 RDW Std Deviation 58.9 H RDW Coeff of Yolanda 15.7 H Plt Count 176 MPV 9.7 Immature Gran % (Auto) 0.600 Neut % (Auto) 77.6 H Lymph % (Auto) 11.7 L [place] % (Auto) 7.8 Eos % (Auto) 1.9 Baso % (Auto) 0.4 Absolute Neuts (auto) 6.3 Absolute Lymphs (auto) 0.94 Nucleated RBC % 0 ESR 20 Sodium 139 Potassium 4.1 Chloride 105 Carbon Dioxide 25.0 Anion Gap 9 BUN 37 H Creatinine 1.81 H Estim Creat Clear Calc 20.60 Est GFR (MDRD) Af Amer 34 L Est GFR (MDRD) Non-Af 28 L BUN/Creatinine Ratio 20.4 H Glucose 113 H Lactic Acid 2.6 H* Calcium 9.6 C-React Prot Ext Range 13.30 H Radiography Diagnostic Testing: Clinical Impression(s) from Imaging Studies Hand X-Ray 03/21/24 17:40 IMPRESSION: Diffuse soft tissue swelling around the hand. Electronically Signed: Ramiro Spangler MD at 18:14 EST Reading Location ID and State: [facility] / [place] , Service support , Treatment and Re-Evaluation :: I have personally performed a face to face assessment of the patient and have reviewed the SANT[facility] Note. I performed a substantive portion of the visit including all aspects of the following. My clifford findings include: History: Patient presents with redness and swelling to her right hand and forearm that has been getting worse over the past week. Patient states she was bitten by her dog 1 week ago. Patient was seen here in the emergency department 4 days ago and was given a dose of IV antibiotics. Patient has been taking Augmentin at home with no improvement. Patient admits to some tingling into her fingers. Daughter states patient's last tetanus was more than 10 years ago. Exam: Vital signs are stable. Patient is afebrile. Patient is in no acute distress. Skin is warm and dry. There is erythema and edema over the dorsum of the right hand. There is erythema warmth extending over the dorsal aspect of the forearm and distal upper arm. There is an area of fluctuance with purulent drainage coming from the dorsum of the right hand over the distal fourth metacarpal. Sensation was intact to light touch in all digits. Capillary refill was less than 2 seconds in all digits. Medical Decision Making: Differential diagnosis includes cellulitis, abscess, osteomyelitis, and sepsis. CBC will be obtained to assess for leukocytosis and anemia. Basic metabolic profile will be obtained to assess for electrolyte abnormality and renal function. Sed rate and CRP will be obtained to assess for inflammatory markers. Serum lactate will be obtained to assess for sepsis. Blood culture will be obtained to assess for sepsis. X-rays of the right hand will be obtained to assess for osteomyelitis. Patient was given a dose of morphine and Zofran. Patient was started on Zosyn and vancomycin. CBC was reviewed. There is a mild anemia with a hemoglobin of 10.2 and hematocrit of 31.5. The remainder is within normal limits. Basic metabolic profile was reviewed. BUN was 37 and creatinine was 1.81. These are consistent with previous results. Sed rate was reviewed and was normal at 20. CRP was reviewed and was mildly elevated at 13.3. Serum lactate was reviewed and was elevated at 2.6. There is a small area of purulent drainage on the dorsal aspect of the right hand. This was anesthetized and opened further with an 11 blade scalpel by the SANTOSH under my supervision. There is a small amount of purulent drainage expressed. Case was discussed with the hospitalist. He will admit the patient to his service. Patient and family understand and are agreeable with the plan. All questions were answered. Discharge Plan Dx/Rx/DC Orders Clinical Impression: Dog bite, Cellulitis of right arm, Failure of outpatient treatment Disposition Disposition: Acute Care [facility] Discharge Date/Time: 03/21/24 19:31
[2024-03-21 17:27] VITALS: BMI 31.3
[2024-03-21] MEDS: Morphine 4 MG/ML Syringe IV (17:27)
[2024-03-21] MEDS: Ondansetron 4 MG/2 ML Vial IV (17:27)
[2024-03-21] MEDS: Lidocaine 1% (20 ml mdv) 20 ML Vial INFILT (17:28)
[2024-03-21 17:37] LABS: Absolute Lymphocyte Count 0.94 X10^3/uL (0.83-4.51); Absolute Neutrophil Count 6.3 X10^3/uL (2.0-7.7); Basophil# 0.03 X10^3/uL; Basophil% 0.4 % (0-1); Eosinophil# 0.15 X10^3/uL; Eosinophils% 1.9 % (0-5); Hematocrit 31.5 % (37-47); Hemoglobin 10.2 g/dL (12.0-15.0); Lymphocyte # 0.94 X10^3/ul (0.83-4.51); Lymphocyte % 11.7 % (19-41); Mean Corp Hgb Conc 32.4 g/dL (32-36); Mean Corpuscular Hgb 32.9 pg (27.0-32.0); Mean Corpuscular Volume 101.6 fL (81-99); Mean Platelet Vol. 9.7 fl (6.2-12.0); Monocyte# 0.63 X10^3/uL; Monocyte% 7.8 % (0-10); NRBC Flagged by Analyzer 0 % (0-5); Neutrophil # 6.26 X10^3/uL (2.7-7.7); Neutrophil % 77.6 % (47-70); Platelet Count 176 K/mm3 (150-450); RBC Distribution Width CV 15.7 % (11.6-14.6); RBC Distribution Width SD 58.9 fl (35.1-43.9); White Blood Count 8.1 K/mm3 (4.4-11.0)
--- NOTE | 2024-03-21 17:40 | RAD_ITS ---
EXAM: XR RIGHT HAND COMPLETE, 3 OR MORE VIEWS CLINICAL INDICATION: dog bite TECHNIQUE: Frontal, lateral and oblique views of the right hand. COMPARISON: No relevant prior studies available. FINDINGS: BONES/JOINTS: Unremarkable. No acute fracture. No subluxation. Normal alignment. Preservation of the joint space. No sclerotic or destructive changes observed. SOFT TISSUES: Diffuse soft tissue swelling around the hand. No radiopaque foreign body. RAD/Hand Min 3 Views IMPRESSION: Diffuse soft tissue swelling around the hand. Electronically Signed: Ramiro Spangler MD at 18:14 EST ,
[2024-03-21 17:43] LABS: Erythrocyte Sedimentation Rate 20 mm/hr (0-30)
[2024-03-21] MEDS: Piperacil/Tazobactam 3.375 GM in 0.9% Normal Saline (50mL MB+) 50 ML IV (17:46)
[2024-03-21] MEDS: Diphth,Pertuss(Acell),Tet Vac 0.5 ML Vial IM (17:46)
[2024-03-21 17:54] LABS: Anion Gap 9 (5-15); BUN 37 mg/dL (7-18); BUN/Creat Ratio 20.4 RATIO (10-20); Calcium,Total 9.6 mg/dL (8.5-10.1); Chloride 105 mmol/L (98-107); Creatinine, Serum 1.81 mg/dL (0.55-1.02); EST Glomerular Filtration Rate 28 mL/min (>60); Est Glom Filt Rate - Afr Amer 34 mL/min (>60); Glucose 113 mg/dL (74-106); Potassium 4.1 mmol/L (3.5-5.1); Sodium Level 139 mmol/L (136-145)
--- NOTE | 2024-03-21 18:00 | ED.RN ---
LACTIC ACID 2DR AWARE.6.
[2024-03-21 18:01] LABS: Lactic Acid 2.6 mmol/L (0.4-1.9)
[2024-03-21 18:02] VITALS: BP 126/63; PULSE 75; RESP 16; TEMP 36.7; O2SAT 94
[2024-03-21] MEDS: Vancomycin HCl 1,250 MG in 0.9% Normal Saline (250mL Bag) 250 ML 167 MG IV (18:26)
[2024-03-21] MEDS: Morphine 2 MG/ML Syringe IV (18:26)
--- NOTE | 2024-03-21 18:39 | PCM.HP.STD ---
HPI - General General Date of Admission: 03/21/24 Date of Service: 03/21/24 Chief Complaint: Dog bite with worsening right hand cellulitis HPI Narrative CARLA MORROW, is a 88 F who presented to [facility] ED on 03/21/2024 with worsening right hand cellulitis after a recent dog bite. Patient was seen in the ED on 03/17 after a dog bite to her right hand on 03/13. Noted then that dog received vaccinations. And localized swelling with some pain in the hand and lower forearm but had no systemic symptoms of infection. X-ray then showed soft tissue swelling and normal WBC count. CRP was elevated at 22. She was given a dose of Unasyn and discharged home on Augmentin. She returned to the ED today with worsening pain and swelling and with the wound now with an opening with yellow drainage. She continued to deny fevers and chills. In the ED she was hypertensive to the 170s systolic but otherwise afebrile and hemodynamically stable. Labs notable for normal WBC count, creatinine 1.81 (baseline unclear but appears to be around 1.2-1.4), lactate 2.6, CRP improved at 13. Hand x-ray showed diffuse soft tissue swelling around the hand but no bony changes or other concerning findings. Patient had I&D done in the ED with a small amount of purulent drainage expressed. Hand was then wrapped with Bryan wrap. She was given doses of IV vancomycin and Zosyn and hospitalist was contacted for admission. I saw the patient at bedside in the ED, daughter was present. Patient was laying back in bed and did appear mild to moderately uncomfortable due to ongoing right arm pain and swelling. Patient is hard of hearing, did have her hearing aids in but still had difficulty with hearing my questions. She reported pain that had spread into her armpit and up into the right side of her neck. Notably on exam she had redness up to the elbow but no erythema or swelling present beyond that. Daughter notes that patient lives at home alone. They recently hired private home health care that has been coming in for half days 3 to 4 days/week to help the patient. She notes that the patient has been reluctant to have them come in and would prefer that this service be discontinued. No other acute concerns at this time. [facility] Medical History Hearing loss, left Hearing loss, right Rheumatoid arthritis Kidney disease On home oxygen therapy Hypertension Anxiety Depression Sleep apnea BiPAP (biphasic positive airway pressure) dependence Congestive heart failure (CHF) Hyperlipidemia Hypertension Home Medications ?Medication ?Instructions ?Recorded ?Last Taken ?Type allopurinol 100 mg tablet 200 mg PO DAILY gout 10/24/14 03/05/21 History aspirin 81 mg chewable tablet 81 mg PO DAILY@0800 heart health 10/24/14 03/05/21 History atorvastatin 40 mg tablet 40 mg PO QHS cholesterol 10/24/14 03/05/21 19:55 History hydrocodone-acetaminophen 5-325mg 1 tab PO Q6H PRN PRN Pain 10/24/14 03/05/21 19:57 History 5mg-325mg isosorbide mononitrate 30 mg 60 mg PO DAILY heart health 10/24/14 03/05/21 History tablet,extended release 24 hr duloxetine 20 mg capsule,delayed 40 mg PO DAILY mental health 10/13/19 03/05/21 History release nitroglycerin 0.4 mg sublingual 0.4 mg SL Q5M PRN CHEST PAIN 10/13/19 Unknown History tablet omeprazole 40 mg capsule,delayed 40 mg PO DAILY reflux 10/13/19 03/05/21 History release pyridoxine (vitamin B6) 100 mg 100 mg PO DAILY vitamin 10/13/19 03/05/21 History tablet labetalol 300 mg tablet 200 mg PO BID blood pressure 03/05/21 Unknown History terazosin 10 mg capsule 10 mg PO QHS blood pressure 03/05/21 Unknown History cholecalciferol (vitamin D3) 50 50 mcg PO DAILY 10/01/21 Unknown History mcg (2,000 unit) capsule (Vitamin D3) docusate sodium 100 mg capsule 100 mg PO BID 10/01/21 Unknown History irbesartan 300 mg tablet 300 mg PO DAILY 03/21/24 Unknown History memantine 10 mg tablet 10 mg PO BID 03/21/24 Unknown History Allergy/AdvReac Type Severity Reaction Status Date / Time BRYAN Inhibitors AdvReac Unknown Verified 03/21/24 16:55 carvedilol (From Coreg) AdvReac Unknown Verified 03/21/24 16:55 nifedipine (From Procardia) AdvReac Unknown Verified 03/21/24 16:55 simvastatin (From Zocor) AdvReac Unknown Verified 03/21/24 16:55 spironolactone AdvReac Unknown Verified 03/21/24 16:55 Surgical History History of hysterectomy History of appendectomy Social History household members: family and none housing: house Smoking Status: Never smoker substance use type: does not use ROS Constitutional Constitutional: Denies chills, fatigue, fever(s) or weakness Cardiovascular Cardiovascular: Denies chest pain Respiratory/Chest Respiratory/Chest: Denies shortness of breath at rest Gastrointestinal Gastrointestinal: Denies abdominal pain Musculoskeletal Musculoskeletal: Reports other Details: Right hand and forearm pain with swelling Neurologic Neurologic: Denies dizziness, focal weakness, headache(s), numbness or paresthesias Vital Signs Vital Signs Vital Signs: 03/21/24 16:56 03/21/24 17:03 03/21/24 18:02 Temperature 98.3 F 98.3 F 98.0 F Temperature Source Oral Temporal Temporal Pulse Rate 79 79 75 Respiratory Rate 18 18 16 Blood Pressure 188/157 H 188/157 H 126/63 H Blood Pressure Mean 167 167 84 Pulse Ox 95 95 94 Oxygen Delivery Method Room Air Room Air Room Air Weight Weight: 77.247 kg Body Mass Index (BMI) 31.3 Physical Exam Const alert Constitutional Narrative: Elderly female, class I obesity, hard of hearing, mild to moderately uncomfortable appearing due to ongoing right arm pain and swelling, answering some questions with short appropriate responses. General Appearance: cooperative HEENT normocephalic, head/scalp atraumatic, hearing grossly normal bilaterally, nasal mucous membranes and turbinates normal and moist oral mucous membranes Eyes PERRL, EOMs intact bilaterally and conjunctivae normal Neck full ROM Chest inspection of chest normal Resp normal respiratory effort, normal air movement, no use of accessory muscles and clear to auscultation bilaterally Cardio regular rate, regular rhythm, no murmurs and peripheral pulses 2+ throughout GI normal to inspection, nondistended, normoactive bowel sounds, soft to palpation, non-tender and non-distended Back/Spine normal ROM Extremity Extremity Narrative: Right hand with wrap and bandage in place. Mild erythema with swelling noted to the right forearm that stops at the elbow with mild to moderate tenderness to palpation. Neuro moves all extremities and no focal motor deficits Psych mental status grossly normal Mood & Affect: anxious Results Lab / Micro Data 03/21/24 17:27 03/21/24 17:27 Labs: Laboratory Results - last 24 hr 03/21/24 17:27: WBC 8.1, RBC 3.10 L, Hgb 10.2 L, Hct 31.5 L, MCV 101.6 H, MCH 32.9 H, MCHC 32.4, RDW Std Deviation 58.9 H, RDW Coeff of Yolanda 15.7 H, Plt Count 176, MPV 9.7, Immature Gran % (Auto) 0.600, Neut % (Auto) 77.6 H, Lymph % (Auto) 11.7 L, [place] % (Auto) 7.8, Eos % (Auto) 1.9, Baso % (Auto) 0.4, Absolute Neuts (auto) 6.3, Absolute Lymphs (auto) 0.94, Nucleated RBC % 0, ESR 20, Sodium 139, Potassium 4.1, Chloride 105, Carbon Dioxide 25.0, Anion Gap 9, BUN 37 H, Creatinine 1.81 H, Estim Creat Clear Calc 20.60, Est GFR (MDRD) Af Amer 34 L, Est GFR (MDRD) Non-Af 28 L, BUN/Creatinine Ratio 20.4 H, Glucose 113 H, Lactic Acid 2.6 H*, Calcium 9.6, C-React Prot Ext Range 13.30 H Imaging Radiology Impression Hand X-Ray 03/21/24 17:40 IMPRESSION: Diffuse soft tissue swelling around the hand. Electronically Signed: Ramiro Spangler MD at 18:14 EST Reading Location ID and State: [facility] / [place] , Service support , Assessment & Plan Assessment/Plan (1) Dog bite: (2) Cellulitis of right hand: (3) Cellulitis of right arm: (4) Failure of outpatient treatment: PLAN: Plan Patient is an 88-year-old female who presented [facility] ED on 03/21/2024 with worsening right hand and arm pain and swelling after a recent dog bite. 1. Recent dog bite with resultant right upper extremity cellulitis, failure of outpatient antibiotic treatment ? Admit under inpatient status to [facility]. Wound care consulted. Patient with dog bite to dorsum of right hand on 03/13. Failed outpatient antibiotic treatment. Hand x-ray on admit with diffuse soft tissue swelling but no other concerning findings. Has cellulitis up to the right elbow. S/p I&D with small purulent drainage in the ED. Will treat with IV vancomycin and Zosyn for now. Follow-up wound culture and blood cultures. Pain management with scheduled Tylenol, oxycodone as needed and IV Dilaudid as needed. 2. Mild creatinine elevation in setting of CKD stage III with elevated lactic acid ? Creatinine 1.81 on admit, baseline appears to be around 1.2-1.4. Lactic acid 2.6. Presume secondary to mild dehydration in setting of cellulitis. Given 1 L of IV fluids on admit. Follow-up repeat lactic acid. Trend daily BMP and urine output. Chronic medical conditions: ? Class I obesity: BMI 30 on admit. Complicates hospital course, care and prognosis. ? MARIANO: Continue home CPAP at night. ? Chronic HFpEF, hypertension, hyperlipidemia: Last echo in 2020 showed EF 60%, moderate pulmonary hypertension, no other significant abnormalities. Hypertensive to the 170s systolic on admit, suspected in part due to pain. Continue home labetalol, nitrate, terazosin, aspirin and statin. Holding home irbesartan for now. Hydralazine as needed ordered as well. ? History of gout: Continue home allopurinol. ? Cognitive impairment: Continue home memantine. ? Depression: Continue home duloxetine. ? Chronic pain: Pain management as noted above. ? GERD: Continue home PPI. DVT prophylaxis: Heparin subcu CODE STATUS: Full code, verified Expected disposition: Home, 2 to 3 days Total clinical time spent by myself addressing the patient's medical issues, reviewing all the data, and collaborating with patient's care team: 55 minutes. Charges/Coding Visit Charges Inpatient E&M: 06308 Init Hosp L2
[2024-03-21 19:20] VITALS: BP 179/59; PULSE 70; RESP 18; TEMP 36.9; O2SAT 96
[2024-03-21 20:11] VITALS: BMI 30.7
[2024-03-21 21:00] VITALS: BP 145/52; PULSE 70; RESP 18; TEMP 36.5; O2SAT 93
[2024-03-21 21:33] LABS: Reflex Lactate? Y
[2024-03-21 22:23] LABS: Lactic Acid 1.4 mmol/L (0.4-1.9)
[2024-03-21] MEDS: 0.9% Normal Saline (1000mL) 1,000 ML 250 ML IV (22:26)
[2024-03-21] MEDS: Docusate Sodium 100 MG Capsule PO (22:27)
[2024-03-21] MEDS: Doxazosin 4 MG Tablet 8 MG PO (22:27)
[2024-03-21] MEDS: Ketorolac 15 MG/ML Vial IV (22:27)
[2024-03-21] MEDS: Acetaminophen 500 MG Tablet 1000 MG PO (22:28)
[2024-03-21] MEDS: Atorvastatin Calcium 40 MG Tablet PO (22:28)
[2024-03-21] MEDS: Memantine Hydrochloride 10 MG Tablet PO (22:28)
[2024-03-21] MEDS: Labetalol 200 MG Tablet PO (22:28)
--- NOTE | 2024-03-21 22:29 | PCM.RX.CS ---
Consult Antibiotic Management Pharmacy has been consulted to manage selected antibiotic: Vancomycin Type of Intervention Type of Consult: New start Labs Labs: Sodium 139 mmol/L (136-145) 03/21/24 17:27 Potassium 4.1 mmol/L (3.5-5.1) 03/21/24 17:27 Chloride 105 mmol/L (98-107) 03/21/24 17:27 Carbon Dioxide 25.0 mmol/L (21.0-32.0) 03/21/24 17:27 Anion Gap 9 (5-15) 03/21/24 17:27 BUN 37 mg/dL (7-18) H 03/21/24 17:27 Creatinine 1.81 mg/dL (0.55-1.02) H 03/21/24 17:27 Est GFR (MDRD) Af Amer 34 mL/min (>60) L 03/21/24 17:27 Est GFR (MDRD) Non-Af 28 mL/min (>60) L 03/21/24 17:27 BUN/Creatinine Ratio 20.4 RATIO (10-20) H 03/21/24 17:27 Glucose 113 mg/dL (74-106) H 03/21/24 17:27 Dosing Weight Weight used for dosin.2 kg Estimated Creatinine Clearance Estimated Creatinine Clearance: 20.6 Goal Trough Goal Trough: 15-20 mcg/mL Pharmacy Plan for Drug Dosing Pharmacy Plan for Drug Dosing: Pharmacy Service will continue to monitor and adjust dosing as required. 1250MG GIVEN IN ER 03/21 @ 1826. START 750MG Q24H AND DRAW TROUGH PRIOR TO 3RD DOSE Follow-Up Labs Follow-Up Labs: Trough: Vancomycin Date/Time Labs Ordered Labs to be done on [date and time ordered]: 03/23 @ 1800
[2024-03-22] MEDS: Ketorolac 15 MG/ML Vial IV (02:02)
[2024-03-22 03:00] VITALS: BP 136/46; PULSE 70; RESP 18; TEMP 36.7; O2SAT 95
[2024-03-22] MEDS: Piperacil/Tazobactam 3.375 GM in 0.9% Normal Saline (50mL MB+) 50 ML IV ×3 (05:30→23:09)
[2024-03-22] MEDS: Acetaminophen 500 MG Tablet 1000 MG PO ×3 (05:30→21:16)
[2024-03-22 05:40] LABS: Hematocrit 27.2 % (37-47); Hemoglobin 8.8 g/dL (12.0-15.0); Mean Corp Hgb Conc 32.4 g/dL (32-36); Mean Corpuscular Hgb 32.4 pg (27.0-32.0); Mean Platelet Vol. 9.5 fl (6.2-12.0); Platelet Count 150 K/mm3 (150-450); RBC Distribution Width CV 15.6 % (11.6-14.6); RBC Distribution Width SD 57.4 fl (35.1-43.9); Red Blood Count 2.72 M/mm3 (4.2-5.4); White Blood Count 5.8 K/mm3 (4.4-11.0)
[2024-03-22 06:07] LABS: Anion Gap 3 (5-15); BUN 38 mg/dL (7-18); BUN/Creat Ratio 19.6 RATIO (10-20); Chloride 109 mmol/L (98-107); Creatinine, Serum 1.94 mg/dL (0.55-1.02); EST Glomerular Filtration Rate 26 mL/min (>60); Est Glom Filt Rate - Afr Amer 31 mL/min (>60); Estimated Creatinine Clearance 19.53 ml/min; Glucose 106 mg/dL (74-106); Potassium 4.6 mmol/L (3.5-5.1); Sodium Level 139 mmol/L (136-145)
--- NOTE | 2024-03-22 07:41 | WOUNDNOTE ---
wound photo: right hand
[2024-03-22 09:37] VITALS: BP 133/37; PULSE 65; RESP 17; TEMP 37.2; O2SAT 97
[2024-03-22] MEDS: Labetalol 200 MG Tablet PO ×2 (10:19→22:12)
[2024-03-22] MEDS: Cholecalciferol (VIT D3) 25 MCG TABLET (1,000 UNITS) 50 MCG PO (10:19)
[2024-03-22] MEDS: Pyridoxine HCl 100 MG Tablet PO (10:19)
[2024-03-22] MEDS: Aspirin 81 MG TAB.CHEW PO (10:19)
[2024-03-22] MEDS: Memantine Hydrochloride 10 MG Tablet PO ×2 (10:19→22:12)
[2024-03-22] MEDS: Isosorbide Mononitrate 60 MG Tablet PO (10:19)
[2024-03-22] MEDS: Pantoprazole Sodium 40 MG Tablet PO (10:19)
[2024-03-22] MEDS: Docusate Sodium 100 MG Capsule PO ×2 (10:19→22:11)
[2024-03-22] MEDS: Allopurinol 100 MG Tablet 200 MG PO (10:20)
[2024-03-22] MEDS: DULoxetine Hcl 20 MG Capsule PO (10:30)
[2024-03-22] MEDS: DULoxetine Hcl 60 MG Capsule PO (10:30)
--- NOTE | 2024-03-22 11:12 | CASEMGMT ---
Addendum entered by Araseli Phoenix 03/22/24 15:32: RN GRECIA received notification from [facility] that they can accept pt. They are requesting wound orders. Wound nurse entered at this time. Sent to [facility] via [facility]. Pt aware that [facility] has accepted her for services. Addendum entered by Araseli Phoenix 03/22/24 13:11: MEAGAN PAIGE called pt dtr back and made pt aware that this RN GRECIA was mistaken, pt will dc tomorrow. Pt dtr states that she will be picking pt up and that she will make sure she has a portable oxygen tank prior to getting out of the car at home. She does not feel pt needs this to drive home. Addendum entered by Araseli Phoenix 03/22/24 13:02: MEAGAN PAIGE into pt room, pt states she has chosen 1. [facility] 2. [facility] 3. [facility]. Pt would like this RN GRECIA to call her dtr to make sure she is ok with the choices. TC to pt dtr Kika, she is aware of pt choices. Offered to send her the entire list, she is agreeable with who her mother chose. Referral sent to [facility] at this time via [employer]. Addendum entered by Araseli Phoenix 03/22/24 12:42: 1212-Patient was provided a list of [facility] providers including quality and resource use data and consistent with the patient?s preferred geographic region, medical needs, and insurance network were provided from the [employer]. Pt to review list and MEAGAN PAIGE to check back. Pt is aware that she will dc today per rounding with hospitalist. Original Note: MEAGAN PAIGE Assessment: Face to Face with pt for initial transition planning/care coordination assessment. MEAGAN PAIGE introduced self and role at [facility], pt voices understanding and consents to assessment. Pt is A&O x4 and answers all questions appropriately at this time. Pt sitting up in chair with oxygen on in no distress. Pt very [place]. Care providers, pharmacy, and demographics verified/updated. Admitting Dx:Dog bite with R hand cellulitis Strata Score: 3 PCP:Gerald Specialists:Ronnell, nephro; Venu, neuro; WHG, cardio Preferred Pharmacy: [facility] Insurance: MCR, [employer] Commercial Prescription Benefit: yes LNOK: Kika Martha, dtr Living Arrangements: Pt lives alone in a single story home with 1 step to enter. Pt reports she is typically I in ADLs. She states her private cg does her laundry and anything else I want her to. Pt dtr gets pt groceries. Pt denies concerns at home. Transportation: Pt does not drive. Pt dtr transports her to medical appts. DME:pox, oxygen through [employer] with portable tanks, cane- don't use, walker, transport w/c, walk in shower with built in shower seat, bipap HHC/SNF: Pt has private hire aide 2 hours a day, 5 days a week except for Wednesdays and Sundays. Pt denies hx of HHC or SNF stays. Pt states no concerns with going home at time of dc. Discussed having SN and therapy to see pt in the home. Discussed what each discipline could provide to pt, pt agreeable to this. Pt is aware that RN CM will be back to provide pt with a list of options. Pt states no further concerns/needs. CM to follow. Advised pt to ask CM if any further question/concerns/needs arise, voices understanding. Pt Goal: Home with HHC and continuation of private aide Plan: Home with HHC and continuation of private aide Massimo RHODES CM
--- NOTE | 2024-03-22 12:08 | PN.HOSP_ITS ---
Reason for Visit Reason for Visit: Diagnoses Cellulitis of right upper limb (03/21/24) Bitten by dog, initial encounter (03/21/24) Other specified health status (03/21/24) Subjective Subjective Saw patient at bedside this morning. Patient was sitting up comfortably in bedside chair and in no acute distress. She appeared more awake and alert and more comfortable today than yesterday. She reported intermittent bilateral arm numbness and tingling with generalized pain in the neck. Denied any specific right arm pain or swelling today. On exam right arm appears much improved from a erythema and swelling standpoint today. Right hand wrap remains in place. No other new concerns today. Objective Data Objective Data Vital Signs: Vital Signs Temp Pulse Resp BP Pulse Ox O2 Del Method O2 Flow Rate 98.9 F 65 17 133/37 H 97 Nasal Cannula 1.5 03/22/24 09:37 03/22/24 09:37 03/22/24 09:37 03/22/24 09:37 03/22/24 09:37 03/22/24 09:37 03/22/24 11:36 Oxygen Flow Rate (L/min) 1.5 Oxygen Delivery Method Nasal Cannula Weight: 76.204 kg Body Mass Index (BMI) 30.7 Intake & Output: Intake and Output for Last 24 Hours 03/20/24 03/21/24 03/22/24 23:59 23:59 23:59 Intake Total 325 / 525 1400 / 1400 Output Total 350 / 350 Balance 325 / 325 1050 / 1050 Lab / Micro Data 03/22/24 05:11 03/22/24 05:11 Labs: Laboratory Results - last 24 hr 03/21/24 17:27: WBC 8.1, RBC 3.10 L, Hgb 10.2 L, Hct 31.5 L, MCV 101.6 H, MCH 32.9 H, MCHC 32.4, RDW Std Deviation 58.9 H, RDW Coeff of Yolanda 15.7 H, Plt Count 176, MPV 9.7, Immature Gran % (Auto) 0.600, Neut % (Auto) 77.6 H, Lymph % (Auto) 11.7 L, [place] % (Auto) 7.8, Eos % (Auto) 1.9, Baso % (Auto) 0.4, Absolute Neuts (auto) 6.3, Absolute Lymphs (auto) 0.94, Nucleated RBC % 0, ESR 20, Sodium 139, Potassium 4.1, Chloride 105, Carbon Dioxide 25.0, Anion Gap 9, BUN 37 H, C reatinine 1.81 H, Estim Creat Clear Calc 20.60, Est GFR (MDRD) Af Amer 34 L, Est GFR (MDRD) Non-Af 28 L, BUN/Creatinine Ratio 20.4 H, Glucose 113 H, Lactic Acid 2.6 H*, Calcium 9.6, C-React Prot Ext Range 13.30 H 03/21/24 21:45: Lactic Acid 1.4 03/22/24 05:11: WBC 5.8, RBC 2.72 L, Hgb 8.8 L, Hct 27.2 L, MCV 100.0 H, MCH 32.4 H, MCHC 32.4, RDW Std Deviation 57.4 H, RDW Coeff of Yolanda 15.6 H, Plt Count 150, MPV 9.5, Sodium 139, Potassium 4.6, Chloride 109 H, Carbon Dioxide 27.0, A nion Gap 3 L, BUN 38 H, Creatinine 1.94 H, Estim Creat Clear Calc 19.53, Est GFR (MDRD) Af Amer 31 L, Est GFR (MDRD) Non-Af 26 L, BUN/Creatinine Ratio 19.6, Glucose 106, Calcium 9.0 Radiography Diagnostic Testing: Radiology Impression Hand X-Ray 03/21/24 17:40 IMPRESSION: Diffuse soft tissue swelling around the hand. Electronically Signed: Ramiro Spangler MD at 18:14 EST Reading Location ID and State: [facility] / [place] , Service support , Physical Exam Const alert Constitutional Narrative: Elderly female, class I obesity, hard of hearing, more alert and comfortable appearing than on admission, sitting up in bedside chair, in no acute distress. General Appearance: cooperative HEENT normocephalic, head/scalp atraumatic, hearing grossly normal bilaterally, nasal mucous membranes and turbinates normal and moist oral mucous membranes Eyes PERRL, EOMs intact bilaterally and conjunctivae normal Neck full ROM Chest inspection of chest normal Resp normal respiratory effort, normal air movement, no use of accessory muscles and clear to auscultation bilaterally Cardio regular rate, regular rhythm, no murmurs and peripheral pulses 2+ throughout GI normal to inspection, nondistended, normoactive bowel sounds, soft to palpation, non-tender and non-distended Back/Spine normal ROM Extremity Extremity Narrative: Right hand with wrap and bandage in place. Erythema and swelling much improved in right forearm. Neuro moves all extremities and no focal motor deficits Psych mental status grossly normal Assessment & Plan Assessment/Plan (1) Dog bite: (2) Cellulitis of right hand: (3) Cellulitis of right arm: (4) Failure of outpatient treatment: PLAN: Plan Patient is an 88-year-old female who presented [facility] ED on 03/21/2024 with worsening right hand and arm pain and swelling after a recent dog bite. 1. Recent dog bite with resultant right upper extremity cellulitis, failure of outpatient antibiotic treatment ? Wound care following. Patient with dog bite to dorsum of right hand on 03/13. Failed outpatient antibiotic treatment. Hand x-ray on admit with diffuse soft tissue swelling but no other concerning findings. Had cellulitis up to the right elbow. S/p I&D with small purulent drainage in the ED but unfortunately no wound culture was collected. Blood cultures pending. Continue treatment with IV vancomycin and Zosyn for now. Appears much improved on hospital day 2, if continues to appear improved tomorrow we will plan for discharge home on p.o. antibiotics. Continue pain control with scheduled Tylenol and oxycodone as needed. 2. Mild creatinine elevation in setting of CKD stage III with elevated lactic acid ? Creatinine 1.81 on admit, baseline appears to be around 1.2-1.4. Lactic acid 2.6. Presume secondary to mild dehydration in setting of cellulitis. Given 1 L of IV fluids on admit and lactic acid normalized. Creatinine remaining stable, continue to trend daily BMP and urine output. Encouraged p.o. intake and can consider IV fluid boluses as needed. Chronic medical conditions: ? Class I obesity: BMI 30 on admit. Complicates hospital course, care and prognosis. ? MARIANO: Continue home CPAP at night. ? Chronic HFpEF, hypertension, hyperlipidemia: Last echo in 2020 showed EF 60%, moderate pulmonary hypertension, no other significant abnormalities. Hypertensive to the 170s systolic on admit, suspected in part due to pain. Continue home labetalol, nitrate, terazosin, aspirin and statin. Holding home irbesartan for now. Hydralazine as needed ordered as well. ? History of gout: Continue home allopurinol. ? Cognitive impairment: Continue home memantine. ? Depression: Continue home duloxetine. ? Chronic pain: Pain management as noted above. ? GERD: Continue home PPI. DVT prophylaxis: Heparin subcu CODE STATUS: Full code, verified Expected disposition: Home, 1 to 2 days Total clinical time spent by myself addressing the patient's medical issues, reviewing all the data, and collaborating with patient's care team: 35 minutes. Charges/Coding Visit Charges Inpatient E&M: 54808 Subs Hosp L2
[2024-03-22 13:31] VITALS: BP 132/41; PULSE 60; RESP 15; TEMP 36.7; O2SAT 99
[2024-03-22 18:07] VITALS: BP 134/44; PULSE 59; RESP 16; TEMP 36.4; O2SAT 95
[2024-03-22] MEDS: Vancomycin HCl 750 MG in 0.9% Normal Saline (250mL Bag) 250 ML 250 MG IV (18:46)
[2024-03-22] MEDS: 0.9% Normal Saline (100mL Bag) 100 ML 15 ML IV (18:46)
[2024-03-22 21:18] VITALS: BP 145/57; PULSE 68; RESP 16; TEMP 36.4; O2SAT 95
[2024-03-22] MEDS: Doxazosin 4 MG Tablet 8 MG PO (22:11)
[2024-03-22] MEDS: Atorvastatin Calcium 40 MG Tablet PO (22:12)
[2024-03-22] MEDS: Heparin Injection (Vial) 5,000 UNIT/ML VIAL 5000 UNIT SC (22:49)
[2024-03-22] MEDS: oxyCODONE 5 MG Tablet PO (23:08)
[2024-03-23 03:26] VITALS: BP 158/55; PULSE 68; RESP 16; TEMP 36.3; O2SAT 99
[2024-03-23 05:43] LABS: Hematocrit 28.9 % (37-47); Hemoglobin 9.4 g/dL (12.0-15.0); Mean Corp Hgb Conc 32.5 g/dL (32-36); Mean Corpuscular Hgb 32.8 pg (27.0-32.0); Mean Corpuscular Volume 100.7 fL (81-99); Mean Platelet Vol. 9.8 fl (6.2-12.0); Platelet Count 159 K/mm3 (150-450); RBC Distribution Width CV 15.2 % (11.6-14.6); RBC Distribution Width SD 56.5 fl (35.1-43.9); Red Blood Count 2.87 M/mm3 (4.2-5.4); White Blood Count 5.7 K/mm3 (4.4-11.0)
[2024-03-23] MEDS: Piperacil/Tazobactam 3.375 GM in 0.9% Normal Saline (50mL MB+) 50 ML IV ×2 (05:46→21:18)
[2024-03-23] MEDS: Acetaminophen 500 MG Tablet 1000 MG PO ×3 (05:46→21:21)
[2024-03-23 06:09] LABS: Anion Gap 3 (5-15); BUN 37 mg/dL (7-18); BUN/Creat Ratio 17.8 RATIO (10-20); Calcium,Total 9.1 mg/dL (8.5-10.1); Chloride 107 mmol/L (98-107); Creatinine, Serum 2.08 mg/dL (0.55-1.02); EST Glomerular Filtration Rate 24 mL/min (>60); Est Glom Filt Rate - Afr Amer 29 mL/min (>60); Estimated Creatinine Clearance 18.21 ml/min; Glucose 94 mg/dL (74-106); Potassium 4.5 mmol/L (3.5-5.1); Sodium Level 138 mmol/L (136-145)
--- NOTE | 2024-03-23 08:54 | WOUNDNOTE ---
wound photo: right hand
[2024-03-23 09:23] VITALS: BP 142/60; PULSE 62; RESP 16; TEMP 36.4; O2SAT 99
[2024-03-23] MEDS: Docusate Sodium 100 MG Capsule PO ×2 (09:42→21:17)
[2024-03-23] MEDS: Aspirin 81 MG TAB.CHEW PO (09:42)
[2024-03-23] MEDS: DULoxetine Hcl 60 MG Capsule PO (09:42)
[2024-03-23] MEDS: Isosorbide Mononitrate 60 MG Tablet PO (09:43)
[2024-03-23] MEDS: Heparin Injection (Vial) 5,000 UNIT/ML VIAL 5000 UNIT SC ×2 (09:44→21:17)
[2024-03-23] MEDS: Pyridoxine HCl 100 MG Tablet PO (09:46)
[2024-03-23] MEDS: Allopurinol 100 MG Tablet 200 MG PO (09:46)
[2024-03-23] MEDS: Cholecalciferol (VIT D3) 25 MCG TABLET (1,000 UNITS) 50 MCG PO (09:47)
[2024-03-23] MEDS: Memantine Hydrochloride 10 MG Tablet PO ×2 (09:47→21:16)
[2024-03-23] MEDS: Labetalol 200 MG Tablet PO ×2 (09:47→21:16)
[2024-03-23] MEDS: Pantoprazole Sodium 40 MG Tablet PO (09:47)
[2024-03-23] MEDS: DULoxetine Hcl 20 MG Capsule PO (09:47)
[2024-03-23] MEDS: oxyCODONE 5 MG Tablet PO ×2 (09:56→16:46)
--- NOTE | 2024-03-23 13:01 | PCM.DC.SUM ---
Providers Date of Admission: 03/21/24 Date of Discharge: 03/23/24 Primary Care Physician: Dr. Davey Duarte MD Consultations 03/21/24 20:23 Consult: Onc/Wound/supervisor press room Routine Comment: Reason for Consult:: R hand dog bite w/ cellulitis Reason For Visit: DOG BITE W/R HIAND CELLULITIS Diagnosis Discharge Diagnosis (1) Dog bite: Status: Acute Code(s): W54.0XXA - Bitten by dog, initial encounter (2) Cellulitis of right hand: Status: Acute Code(s): L03.113 - Cellulitis of right upper limb (3) Cellulitis of right arm: Status: Acute Code(s): L03.113 - Cellulitis of right upper limb (4) Failure of outpatient treatment: Status: Acute Code(s): Z78.9 - Other specified health status Medications at Discharge Home Medications allopurinol 100 mg tablet 200 mg PO DAILY gout 10/24/14 aspirin 81 mg chewable tablet 81 mg PO DAILY@0800 heart health 10/24/14 atorvastatin 40 mg tablet 40 mg PO QHS cholesterol 10/24/14 hydrocodone-acetaminophen 5-325mg 5mg-325mg 1 tab PO Q6H PRN PRN Pain 10/24/14 isosorbide mononitrate 30 mg tablet,extended release 24 hr 60 mg PO DAILY heart health 10/24/14 duloxetine 20 mg capsule,delayed release 20 mg PO DAILY mental health 10/13/19 nitroglycerin 0.4 mg sublingual tablet 0.4 mg SL Q5M PRN CHEST PAIN 10/13/19 omeprazole 40 mg capsule,delayed release 40 mg PO DAILY reflux 10/13/19 pyridoxine (vitamin B6) 100 mg tablet 100 mg PO DAILY vitamin 10/13/19 labetalol 300 mg tablet 200 mg PO BID blood pressure 03/05/21 terazosin 10 mg capsule 10 mg PO QHS blood pressure 03/05/21 cholecalciferol (vitamin D3) 50 mcg (2,000 unit) capsule (Vitamin D3) 50 mcg PO DAILY 10/01/21 docusate sodium 100 mg capsule 100 mg PO BID 10/01/21 irbesartan 300 mg tablet 300 mg PO DAILY 03/21/24 memantine 10 mg tablet 10 mg PO BID 03/21/24 duloxetine 60 mg capsule,delayed release 60 mg PO DAILY depression 03/22/24 amoxicillin 875 mg-potassium clavulanate 125 mg tablet 1 tab PO BID 5 days #10 tabs 03/23/24 Hospital Course Operations None Procedures - (Right hand x-ray, I&D of right hand wound) Summary of Care Provided Minutes Spent on Discharge: 35 Hospital Course: Patient is an 88-year-old female who presented [facility] ED on 03/21/2024 with worsening right hand and arm pain and swelling after a recent dog bite. Hospital course as noted below. Patient discharged home with home health care in stable condition on 03/23. 1. Recent dog bite with resultant right upper extremity cellulitis, failure of outpatient antibiotic treatment ? Wound care followed. Patient with dog bite to dorsum of right hand on 03/13. Failed outpatient antibiotic treatment. Hand x-ray on admit with diffuse soft tissue swelling but no other concerning findings. Had cellulitis up to the right elbow. S/p I&D with small purulent drainage in the ED. Wound cultures with no growth and blood cultures with no growth at 48 hours. Treated with IV vancomycin and Zosyn with good improvement. Discharged on Augmentin to complete 7-day course of antibiotics total. Pain control with Tylenol as needed and home hydrocodone?acetaminophen as needed. 2. Mild creatinine elevation in setting of CKD stage III with elevated lactic acid ? Creatinine 1.81 on admit, baseline unclear but may be around 1.6-1.8. Lactic acid 2.6. Presume secondary to mild dehydration in setting of cellulitis. Given 1 L of IV fluids on admit and lactic acid normalized. Creatinine remained stable at 1.8-2.0 during hospitalization. Recommend that patient has repeat BMP done in 5 to 7 days to ensure that creatinine has remained stable or improved. Chronic medical conditions: ? Class I obesity: BMI 30 on admit. Complicated hospital course, care and prognosis. ? MARIANO: Continue home CPAP at night. ? Chronic HFpEF, hypertension, hyperlipidemia: Last echo in 2020 showed EF 60%, moderate pulmonary hypertension, no other significant abnormalities. Hypertensive to the 170s systolic on admit, suspected in part due to pain. Continue home labetalol, nitrate, terazosin, aspirin and statin. Home irbesartan held during hospitalization, okay to resume on discharge. ? History of gout: Continue home allopurinol. ? Cognitive impairment: Continue home memantine. ? Depression: Continue home duloxetine. ? Chronic pain: Pain management as noted above. ? GERD: Continue home PPI. Total clinical time spent by myself addressing the patient's medical issues, reviewing all the data, and collaborating with patient's care team: 35 minutes. Physical Exam Const alert Constitutional Narrative: Elderly female, class I obesity, hard of hearing, more alert and comfortable appearing than on admission, sitting up in bedside chair, in no acute distress. General Appearance: cooperative HEENT normocephalic, head/scalp atraumatic, hearing grossly normal bilaterally, nasal mucous membranes and turbinates normal and moist oral mucous membranes Eyes PERRL, EOMs intact bilaterally and conjunctivae normal Neck full ROM Chest inspection of chest normal Resp normal respiratory effort, normal air movement, no use of accessory muscles and clear to auscultation bilaterally Cardio regular rate, regular rhythm, no murmurs and peripheral pulses 2+ throughout GI normal to inspection, nondistended, normoactive bowel sounds, soft to palpation, non-tender and non-distended Back/Spine normal ROM Extremity Extremity Narrative: Right hand with wrap and bandage in place. Erythema and swelling much improved in right forearm. Neuro moves all extremities and no focal motor deficits Psych mental status grossly normal Weight / BMI Weight Weight: 76.204 kg Body Mass Index (BMI) 30.7 ABG / Lab / Microbiology Data 03/23/24 05:17 03/23/24 05:17 Laboratory: Laboratory Results - last 24 hr 03/23/24 05:17: WBC 5.7, RBC 2.87 L, Hgb 9.4 L, Hct 28.9 L, MCV 100.7 H, MCH 32.8 H, MCHC 32.5, RDW Std Deviation 56.5 H, RDW Coeff of Yolanda 15.2 H, Plt Count 159, MPV 9.8, Sodium 138, Potassium 4.5, Chloride 107, Carbon Dioxide 28.0, Anion Gap 3 L, BUN 37 H, Creatinine 2.08 H, Estim Creat Clear Calc 18.21, Est GFR (MDRD) Af Amer 29 L, Est GFR (MDRD) Non-Af 24 L, BUN/Creatinine Ratio 17.8, Glucose 94, Calcium 9.1 Microbiology: Microbiology 03/22/24 07:30 Wound - Hand Gram Stain - Final 03/22/24 07:30 Wound - Hand Wound Culture - Preliminary No growth-Final to follow D/C Instructions DC O2, CPAP, BIPAP Needs Home O2 Discharge instructions: No Meaningful Use Info Meaningful Use Meaningful Use Diagnoses (Choose all that apply): None applicable Ischemic Stroke Statin Dosing Therapy Reference: STATIN DOSE THERAPY REFERENCE: * Patients > 75 years receive moderate or high dose statin therapy. * Patients 75 years or YOUNGER should receive HIGH intensity statin dose unless contraindicated. You will be required to document reason for non-treatment if statin daily dose does not meet guidelines. HIGH DOSE STATIN THERAPY DAILY Atorvastatin > than or = to 40 mg Rosuvastatin > than or = to 20 mg Amlodipine + Atorvastatin > than or = to 2.5/40 mg Ezetimibe + Simvastatin 10/80 mg Simvastatin 80mg Discharge Plan Admission Admit Date/Time: 03/21/24 18:42 Primary Reason for Your Visit: Dog bite with right upper extremity cellulitis Attending Provider: Barrett Ross Primary Care Provider: Davey Duarte Instructions Additional Instructions / Restrictions: Take 5 more days of the antibiotic below to complete a 7-day course of antibiotics total. Follow-up with your primary care doctor as needed. Home health care will come out to see you shortly after discharge. Discharge Orders/Prescriptions Prescriptions: New amoxicillin-pot clavulanate 875-125 mg tablet 1 tab PO BID 5 Days Qty: 10 0RF Continued atorvastatin 40 MG tablet 40 mg PO QHS hydrocodone-acetaminophen 1 TABLET tablet 1 tab PO Q6H PRN PRN (Reason: Pain) isosorbide mononitrate 30 MG tablet 60 mg PO DAILY allopurinol 100 MG tablet 200 mg PO DAILY aspirin 81 MG tablet,chewable 81 mg PO DAILY@0800 omeprazole 40 MG capsule,delayed release(DR/EC) 40 mg PO DAILY nitroglycerin 0.4 MG tablet, sublingual 0.4 mg SL Q5M PRN (Reason: CHEST PAIN) pyridoxine (vitamin B6) 100 MG tablet 100 mg PO DAILY duloxetine 20 MG capsule 20 mg PO DAILY labetalol 300 mg Tablet 200 mg PO BID terazosin 10 mg Capsule 10 mg PO QHS docusate sodium 100 mg Capsule 100 mg PO BID cholecalciferol (vitamin D3) [Vitamin D3] 50 mcg (2,000 unit) Capsule 50 mcg PO DAILY irbesartan 300 mg tablet 300 mg PO DAILY memantine 10 mg tablet 10 mg PO BID duloxetine 60 mg capsule,delayed release(DR/EC) 60 mg PO DAILY Referrals / Follow Up: Davey Duarte MD [Primary Care Provider] - Disposition Disposition (needs filled in before D/C Order can be placed): Home Health Service Charges/Coding Visit Charges Inpatient E&M: 85191 Disch Hosp >30min
--- NOTE | 2024-03-23 13:16 | CASEMGMT ---
RN CM into pt room, pt aware that she is being dc'd. She is aware that [facility] will be out to see her. Pt denies any questions at this time. Pt is happy to be going home. DC info sent to [facility] via [employer].
[2024-03-23 15:50] VITALS: BP 133/42; PULSE 72; RESP 18; TEMP 36.6; O2SAT 95
[2024-03-23 18:48] LABS: Vancomycin, Trough Level 17.6 ug/mL (5.0-15.0)
[2024-03-23] MEDS: Vancomycin IV 500 MG/100 ML BAG 100 MG IV (19:42)
[2024-03-23] MEDS: 0.9% Normal Saline (100mL Bag) 100 ML 15 ML IV (19:44)
--- NOTE | 2024-03-23 20:29 | PCM.RX.CS ---
Consult Antibiotic Management Pharmacy has been consulted to manage selected antibiotic: Vancomycin Type of Intervention Type of Consult: Follow-up Suspected Infection Suspected Infection: Skin/Soft tissue Labs Labs: Sodium 138 mmol/L (136-145) 03/23/24 05:17 Potassium 4.5 mmol/L (3.5-5.1) 03/23/24 05:17 Chloride 107 mmol/L (98-107) 03/23/24 05:17 Carbon Dioxide 28.0 mmol/L (21.0-32.0) 03/23/24 05:17 Anion Gap 3 (5-15) L 03/23/24 05:17 BUN 37 mg/dL (7-18) H 03/23/24 05:17 Creatinine 2.08 mg/dL (0.55-1.02) H 03/23/24 05:17 Est GFR (MDRD) Af Amer 29 mL/min (>60) L 03/23/24 05:17 Est GFR (MDRD) Non-Af 24 mL/min (>60) L 03/23/24 05:17 BUN/Creatinine Ratio 17.8 RATIO (10-20) 03/23/24 05:17 Glucose 94 mg/dL (74-106) 03/23/24 05:17 Vancomycin Trough 17.6 ug/mL (5.0-15.0) H 03/23/24 18:15 Microbiology Microbiology: Microbiology 03/22/24 07:30 Wound - Hand Gram Stain - Final 03/22/24 07:30 Wound - Hand Wound Culture - Preliminary No growth-Final to follow Goal Trough Goal Trough: 15-20 mcg/mL Pharmacy Plan for Drug Dosing Pharmacy Plan for Drug Dosing: VANCOMYCIN LEVEL RECEIVED Current Vancomycin Dose: 750mg q24h (1830) Number of Doses Received: x1 1250mg dose, x1 750mg dose Vancomycin Level: 17.6 Hours Since Last Dose: 11.5 hours since last 750mg dose on 03/22 at 1846 Renal Function: SrCr 2.08 Renal Function Trend: SrCr increasing Lab/Micro: Vancomycin Plan/Comments: due to increasing SrCr, patients CrCl is now below 20. Resulted trough of 17.6 is within the ordered goal trough range of 15-20, however patients renal function/CrCl is worsening. Recommend a 500mg x1 dose on 03/23/24, and check a random level in 2 days Pending Level: random level on 03/25/24 at 0600 Pharmacy Service will continue to monitor and adjust dosing as required. Follow-Up Labs Follow-Up Labs: Trough: Vancomycin (03/25/24 at 0600 (random level))
[2024-03-23] MEDS: Atorvastatin Calcium 40 MG Tablet PO (21:17)
[2024-03-23] MEDS: Doxazosin 4 MG Tablet 8 MG PO (21:17)
[2024-03-23 21:54] VITALS: BP 124/58; PULSE 61; RESP 16; TEMP 36.6; O2SAT 99
[2024-03-23 23:51] VITALS: BP 115/42; PULSE 66; RESP 16; TEMP 36.6; O2SAT 98
[2024-03-24 03:45] VITALS: BP 130/44; PULSE 60; RESP 16; TEMP 36.7; O2SAT 99
[2024-03-24] MEDS: Acetaminophen 500 MG Tablet 1000 MG PO (05:16)
[2024-03-24 05:55] LABS: Hematocrit 27.5 % (37-47); Hemoglobin 8.9 g/dL (12.0-15.0); Mean Corp Hgb Conc 32.4 g/dL (32-36); Mean Corpuscular Hgb 32.6 pg (27.0-32.0); Mean Corpuscular Volume 100.7 fL (81-99); Mean Platelet Vol. 9.9 fl (6.2-12.0); Platelet Count 167 K/mm3 (150-450); RBC Distribution Width CV 15.2 % (11.6-14.6); RBC Distribution Width SD 56.1 fl (35.1-43.9); Red Blood Count 2.73 M/mm3 (4.2-5.4); White Blood Count 6.9 K/mm3 (4.4-11.0)
[2024-03-24 06:24] LABS: Anion Gap 4 (5-15); BUN 38 mg/dL (7-18); BUN/Creat Ratio 18.6 RATIO (10-20); Calcium,Total 9.4 mg/dL (8.5-10.1); Chloride 107 mmol/L (98-107); Creatinine, Serum 2.04 mg/dL (0.55-1.02); EST Glomerular Filtration Rate 24 mL/min (>60); Est Glom Filt Rate - Afr Amer 30 mL/min (>60); Estimated Creatinine Clearance 18.57 ml/min; Glucose 84 mg/dL (74-106); Potassium 4.6 mmol/L (3.5-5.1); Sodium Level 136 mmol/L (136-145)
[2024-03-24 07:54] VITALS: O2SAT 96
[2024-03-24 07:55] VITALS: BP 133/63; PULSE 67; RESP 16; TEMP 36.7; O2SAT 97
[2024-03-24] MEDS: Aspirin 81 MG TAB.CHEW PO (08:13)
--- NOTE | 2024-03-24 10:21 | CT_ITS ---
STUDY: CT CERVICAL SPINE WITHOUT CONTRAST REASON FOR EXAM: Female, 88 years old. Bilateral upper extremity numbness and tingling RADIATION DOSAGE (If Supplied By Facility): CTDIvol = ( 24.47 ) mGy, DLP = ( 536.21 ) mGycm TECHNIQUE: High resolution transaxial imaging was performed without contrast material. Sagittal and coronal images were reconstructed. Individualized dose optimization techniques were used for this CT. COMPARISON: 11/05/2023 FINDINGS: Normal craniovertebral junction. There are degenerative changes of the anterior atlantoaxial articulation. Normal odontoid process. There is slight reversal of the normal cervical lordosis. Bones are diffusely demineralized. C2-3: Normal endplates. Disc space narrowing. No central canal narrowing, there is right foraminal narrowing due to facet joint hypertrophy, left foramen is widely patent C3-4: Sclerotic endplate changes with disc space narrowing. No central canal narrowing, no foraminal narrowing. C4-5: Previous interbody fusion between C4 and C5 with no central canal narrowing, there is bilateral foraminal narrowing due to facet joint hypertrophy. C5-6: Sclerotic endplate changes with posterior uncovertebral spurs and disc space narrowing. No central canal narrowing, bilateral foraminal narrowing due to facet joint hypertrophy. C6-7: Normal endplates. Disc space narrowing, no central canal narrowing, bilateral foraminal narrowing due to facet joint hypertrophy. C7-T1: Normal endplates. Disc space narrowing. Normal central canal and intervertebral neuroforamina. Prevertebral soft tissues show dense calcifications in the carotid artery bulbs. There is no airway narrowing or deviation. Thyroid gland is unremarkable, lung apices are clear. CT/Spine Cervical without Contras IMPRESSION: Multilevel degenerative changes, no demonstrated fracture or suspicious osseous lesion, no significant interval change since the previous study Electronically Signed: Grey Doan MD at 12:21 EST Reading Location ID and State: [facility] / [place] , Service support ,
[2024-03-24] MEDS: Piperacil/Tazobactam 3.375 GM in 0.9% Normal Saline (50mL MB+) 50 ML IV (11:13)
[2024-03-24] MEDS: Docusate Sodium 100 MG Capsule PO (11:13)
[2024-03-24] MEDS: DULoxetine Hcl 60 MG Capsule PO (11:14)
[2024-03-24] MEDS: Heparin Injection (Vial) 5,000 UNIT/ML VIAL 5000 UNIT SC (11:15)
[2024-03-24] MEDS: DULoxetine Hcl 20 MG Capsule PO (11:15)
[2024-03-24] MEDS: Isosorbide Mononitrate 60 MG Tablet PO (11:15)
[2024-03-24] MEDS: Pantoprazole Sodium 40 MG Tablet PO (11:16)
[2024-03-24] MEDS: Cholecalciferol (VIT D3) 25 MCG TABLET (1,000 UNITS) 50 MCG PO (11:16)
[2024-03-24] MEDS: Labetalol 200 MG Tablet PO (11:16)
[2024-03-24] MEDS: Memantine Hydrochloride 10 MG Tablet PO (11:16)
[2024-03-24] MEDS: Allopurinol 100 MG Tablet 200 MG PO (11:17)
[2024-03-24] MEDS: Pyridoxine HCl 100 MG Tablet PO (11:17)
--- NOTE | 2024-03-24 14:05 | PCM.HOSP.N ---
Hospitalist Note Patient's discharge was held yesterday evening as patient was reporting significant bilateral arm, neck and upper back pain. Discussed over the phone with patient's daughter who noted that patient lives alone and has not had significant pain like this before. Saw patient at bedside this morning and patient appeared more comfortable today and reported having less pain than yesterday. However given her symptoms, CT cervical spine without contrast was obtained and showed chronic changes but no acute findings. On chart review, patient came to our ED in October for similar symptoms and had CT cervical spine done then again with no concerning findings. Patient is stable for discharge home with home health care today.
== END 2024-03-24 15:29 | disposition home health service (06) | DRG 605 ==
LOC: ED 17:25 → MS3 19:07
PROVIDERS: Physician Assistant; Admitting Provider Hospitalist; Emergency Provider Emergency Medicine; PCP Internal Medicine; Visit Provider Hospitalist
DX: S60.571A Other superficial bite of hand of right hand, initial encounter (principal); I50.32 Chronic diastolic (congestive) heart failure; I13.0 Hypertensive heart and chronic kidney disease with heart failure and stage 1 through stage 4 chronic kidney disease, or unspecified chronic kidney disease; L03.113 Cellulitis of right upper limb; E66.811 Obesity, class 1; N18.30 Chronic kidney disease, stage 3 unspecified; F32.A Depression, unspecified; E78.5 Hyperlipidemia, unspecified; K21.9 Gastro-esophageal reflux disease without esophagitis; G47.33 Obstructive sleep apnea (adult) (pediatric); E86.0 Dehydration; M10.9 Gout, unspecified; G31.84 Mild cognitive impairment of uncertain or unknown etiology; Z68.30 Body mass index [BMI] 30.0-30.9, adult; G89.29 Other chronic pain; Z79.82 Long term (current) use of aspirin; Z90.710 Acquired absence of both cervix and uterus; Z99.89 Dependence on other enabling machines and devices; W54.0XXA Bitten by dog, initial encounter
CPT/HCPCS: 36415; 72125; 73130; 80048; 80202; 83605; 85025; 85027; 85652; 86140; 87040; 87070; 87205; 90715; 97162; 97166; 97530; 99285; A4216; J2405